=== PATIENT | male | born 1940 | race Caucasian/White ===

== ENCOUNTER 2016-07-08 20:35 | Inpatient (IN) | payer MEDICARE ==
[~2016-07-08] VITALS: Ht 198.1 cm; Wt 113.0 kg
--- NOTE | ~2016-07-08 | CON ---
[place], [place] REPORT OF CONSULTATION NAME: FRANDY GU [facility] #: [id number] UNIT #: [id number] ROOM: 531 DOCTOR: MAYRA FARRELL MD BIRTHDATE: [birth year] DOS: 07/12/2016 PULMONARY CONSULTATION EVALUATION AND MANAGEMENT The consultation requested by the hospitalist services. REASON FOR CONSULTATION: Assess the patient for ongoing acute respiratory complaints. HISTORY OF PRESENT ILLNESS: A 76-year-old white male who has been known to me previously. He has not been seen in my office for the past 4 years. The patient presented to the hospital for patient because of having symptoms of acute cold for the past couple of days. The symptoms are noted progressive worsening later on with significant chills for this patient. He was also noted with fever and headache. The cough for this patient was described, which was initially noted nonproductive, later on productive sputum expectoration. The patient denies symptoms of any chest pain. Shortness of breath for the patient was also noted with noted progressive worsening. Denies symptoms of hemoptysis. Denies any acute chest pain at this time. Currently, the patient has been admitted to the hospital and managed for the COPD exacerbation of the patient and other illnesses. REVIEW OF SYSTEMS: CONSTITUTIONAL SYMPTOMS: Fatigue and tiredness noted without any symptoms of fever or chills. EYES: Denies any burning, redness, or tenderness. EARS, NOSE, THROAT SYMPTOMS: No sore throat, hoarseness, otalgia, postnasal drainage. CARDIOVASCULAR SYSTEM: Denies anginal pain, edema or pain of the lower extremities. GASTROINTESTINAL SYMPTOMS: Denies dysphagia, nausea, vomiting, diarrhea, abdominal pain, hematemesis, melena, or hematochezia. GENITOURINARY SYMPTOMS: Denies dysuria, suprapubic pain, hematuria. MUSCULOSKELETAL SYMPTOMS: Denies acute joint pain, redness, or tenderness. SKIN: No lesions or rashes. CENTRAL NERVOUS SYSTEM: Denies dizziness, headache, diplopia or syncopal episodes. Remaining systems were reviewed with the patient, they were noted all negative. PAST MEDICAL HISTORY: For this patient was noted with history of: 1. Type 2 diabetes mellitus. 2. Essential hypertension. 3. Hyperlipidemia. 4. Past history of asbestos exposure. 5. History of bronchiectasis for this patient as well. 6. History of bronchial asthma for the patient uncomplicated moderate severity suspected. PAST SURGICAL HISTORY: [place], [place] REPORT OF CONSULTATION [id number] UN[facility] #: [id number] ROOM: 531 DOCTOR: MAYRA FARRELL MD BIRTHDATE: [birth year] 1. Bilateral orchiectomy. 2. Venous stripping of both the lower extremities. 3. History of appendectomy. 4. Bilateral total knee replacement. 5. Surgery of glaucoma. SOCIAL HISTORY: The patient is , has 2 children, lives at home. He has been noted past tobacco use since age of [age] years old up to 3 packs of cigarettes per day that was stopped by the patient about 45 years ago. Denies history of alcohol use or illicit drug use. FAMILY HISTORY: The patient's father at 85 years old, complication of congestive heart failure. Mother at age ____ years, complication of coronary artery disease. HOME MEDICATIONS: For the patient, which were listed for this patient were noted as use of amiodarone, aspirin, Zyrtec, lisinopril, metformin, Lopressor, multivitamin, simvastatin and trazodone. DRUG ALLERGIES: Noted allergy, 1. KEFLEX. 2. ADVAIR. PHYSICAL EXAMINATION: GENERAL: This is a 76-year-old white male who has been currently noted to be awake and alert, sitting on his bed without any acute distress. The patient's height was recorded by the nursing staff for the patient at the time of admission with height of 6 feet 6 inches, the weight of 249 pounds, BMI 28.7. VITAL SIGNS: For the patient shows a temperature noted as normal, respiratory rate recorded as 18-20, heart rate 62-59, blood pressure 140/64-152/56. A pulse oxygen saturation recorded for the patient 94% on room air. HEENT: Examination shows head was atraumatic. Eyes nonicterus. NECK: Supple. Oral mucosa was moist. CARDIOVASCULAR SYSTEM: S1, S2 is audible. LUNGS: The patient was noted with crackles of the lung were noted ____ for this patient generalized. Scattered wheezing. ABDOMEN: Soft, nontender. Bowel sounds present. EXTREMITIES: The patient shows no edema, clubbing or cyanosis. LABORATORY DATA: CBC of the patient that was done for the patient on admission 07/08/2016 showed WBC count 12.4, hemoglobin 13.0, hematocrit 41.1, platelet count of 210,000. CMP of the patient on 07/10/2016, WBC count 13.6, hemoglobin 11.6, hematocrit 36.5, platelet count was normal. CBC of this morning, WBC count 12.2, hemoglobin 11.8, hematocrit 37.2, platelet count of 224,000. CMP for the patient that was noted for the patient on 07/08/2016, glucose 182, BUN normal, creatinine was normal. Remaining CMP was normal on admission. Lactic acid as high as 2.8, lowest 2.0 for the patient on the , . Blood culture from the 20 of this month so far showed no bacterial growth. Culture of the sputum for the patient shows a normal hodan for the patient in isolation of the patient from 07/09/2016 was reported. Chest x-ray of the patient that was [place], [place] REPORT OF CONSULTATION NAME: FRANDY GU [facility] #: [id number] UNIT #: [id number] ROOM: 531 DOCTOR: TAMEKA STEVE [facility] BIRTHDATE: [birth year] done, 2 view of the patient on admission in the Emergency Room of the patient was assessed and shows some hyperinflation of the lungs without any gross area of pulmonary infiltration. The CT scan of the chest for the patient does not show any evidence of significant lymphadenopathy, mediastinal abnormal pulmonary nodules. Scattered patchy infiltration noted in the lower lung for this patient as well. There were no pleural effusions. Incidental finding for this patient was described as 2.7 cm nodule for the patient in the left lobe of the thyroid gland. IMPRESSION: 1. The patient who has been currently admitted to the hospital, treated for acute exacerbation of bronchial asthma, acute tracheobronchitis with a past history of bronchiectasis. Crackles of the patient noted in the lungs for the patient most likely suggestive of possibly to retain secretions of the major airways. 2. The patient with a past history of essential hypertension and other medical illnesses known previously. 3. Incidental finding of a 2.7 cm for the patient nodule for the patient hyperdense in the thyroid gland of unclear significance. Etiology needs to have further assessment done for that with the ultrasound, possible consideration of biopsy. 4. History of tobacco use of the patient remotely was also known. 5. Small patchy infiltration in lower lungs suggestive of acute bacterial pneumonia of the patient on aspiration, possible consideration of gram-positive community-acquired infection. PLAN OF TREATMENT: He has been getting intravenous Solu-Medrol for this patient as 40 mg b.i.d. for this patient that would be continued. He is also getting the Mucinex for the patient and the flutter valve. The sputum culture was noted negative for the patient, any abnormal bacterial growth. Continue current conservative treatment for this patient. The symptom remains persistent for the patient especially the cough, consider fiberoptic bronchoscopy. Continue other previous treatment, plan of management as in progress. Usual care. No change in the antibiotics will be necessary. Thanks for allowing me to participate in the care of this patient. MAYRA ENGLISH MD CM:CONSTR:REPORT OF CONSULTATION 1233 07/13/16 0639 interface
--- NOTE | ~2016-07-08 | PR ---
[place], [place] PROGRESS NOTE [id number] UN[facility] #: [id number] ROOM: 531 DOCTOR: TAMEKA STEVE MD,MAYRA BIRTHDATE: [birth year] DOS: 07/14/2016 SUBJECTIVE: The patient was seen and examined on 07/14/2016, comfortably resting with improvement continued in the respiratory symptoms of coughing, shortness of breath, and others. Denies symptoms of chest pain or any abdominal pain. OBJECTIVE: VITAL SIGNS: For the patient, which has been recorded, showed the temperature of the patient noted as normal. The respiratory rate of the patient recorded as 20, heart rate of 56, blood pressure 156/77. The pulse oxygen saturation of the patient noted on room air 95% saturation. HEENT: No acute change. NECK: Supple. CARDIOVASCULAR: S1, S2 audible. LUNGS: There were no wheezing or crackles at this time noted. ABDOMEN: Soft, nontender. LABORATORY DATA: PA and lateral chest x-ray of the patient that was done this morning for the patient was reviewed, shows increased interstitial markings in the patient noted as previously. There were no acute pulmonary infiltration noted. IMPRESSION: Acute tracheobronchitis with history of bronchiectasis, acute exacerbation of bronchial asthma. PLAN OF TREATMENT: No changes from the pulmonary standpoint, the patient could be considered for home discharge on current medical management. Other supportive therapy, plan of management, antibiotic for the patient, and tapering dose of prednisone upon discharge was advised. MAYRA ENGLISH MD CM:PNTRANS [id number] MAYRA STEVE MD 07/15/16 0602 interface
--- NOTE | ~2016-07-08 | EKG ---
[place], [place] ELECTROCARDIOGRAM REPORT NAME: FRANDY GU UNIT #: [id number] ROOM: 531 DOCTOR: LISSY KIRBY MD BIRTHDATE: [birth year] DOS: 07/08/2016 TIME: 210 Sinus rhythm, normal axis, normal intervals, nonspecific ST-T changes. LISSY KIRBY MD CM:EKGRPT:ELECTROCARDIOGRAM REPORT 1126 1150 LISSY KIRBY MD
--- NOTE | ~2016-07-08 | PR ---
[place], [place] PROGRESS NOTE NAME: FRANDY GU UNIT #: [id number] ROOM: 531 DOCTOR: MAYRA FARRELL MD BIRTHDATE: [birth year] DOS: 07/13/2016 PULMONARY PROGRESS NOTE SUBJECTIVE: The patient reported reduction of the symptoms of coughing and shortness of breath as well as wheezing. Denies symptoms of chest pain or abdominal pain. OBJECTIVE: VITAL SIGNS: Normal temperature, respiratory rate 20, heart rate 64, blood pressure 177/86-156/74. Pulse oxygen saturation on room air 96% saturation. HEENT: No new change. NECK: Supple. CARDIOVASCULAR: S1, S2 audible. LUNGS: Noted with reduction of crackles in the lungs bilaterally. Still basilar crackles noted, which is inspiratory. The wheezing was present mild to moderately. ABDOMEN: Soft, nontender. LABORATORY DATA: CBC: WBC count was normal, hemoglobin 11.3, hematocrit 35.3, platelet count was normal. The BMP of patient this morning, BUN 26, creatinine normal, glucose 153. IMPRESSION: 1. The patient who has been currently treated for the management of acute exacerbation of bronchial asthma and acute bacterial bronchitis, which has been improving progressively. The secretion clearance of the patient noted reduction in crackle for patient endobronchial tree. 2. History of bronchiectasis. 3. Thyroid nodule as well. 4. Possibility of acute pneumonia for this patient from aspiration. PLAN OF TREATMENT: Continuation of the current plan of management, bronchodilators, oxygen supplementation, other treatment plan and management. I ordered a chest x-ray of the patient, PA and lateral views tomorrow morning to assess the progression of the pneumonia assessment. Supportive care. [place], [place] PROGRESS NOTE NAME: FRANDY GU UNIT #: [id number] ROOM: 531 DOCTOR: MAYRA FARRELL MD BIRTHDATE: [birth year] MAYRA ENGLISH MD CM:PNTRANS 1124 7 MAYRA STEVE MD 07/14/16247 interface
[~2016-07-08 20:35] MED LIST: 'zithromax250 MG PO; ALBUTEROL0.09 MG/A2 INH; ALBUTEROL2.5 MG/0.5 INH; ALPHAGAN-P 5 ML5 ML OPH; ASPIRIN EC325 MG PO; ASPIRIN81 M1 PO; ATIVAN0.5 MG PO; CORDARONE200 MG PO; Coumadin3 MG PO; DAILY VITAMINS1 TAB PO; DELTASONE5 MG PO; DESYREL50 MG PO; DORZOLAMIDE OPH; DOXYCYCLINE100 MG PO; ELIQUIS5 M1 PO; FORADIL AEROLIZER; GLIPIZIDE5 MG PO; GLUCOPHAGE1000 MG PO; GLUCOPHAGE500 M1 PO; GLUCOPHAGE500 MG PO; HYDROCODONE BIT1 T11 PO; LOMOTIL 0.025 M1 TA1 PO; LOPRESSOR50 MG PO; MOTRIN800 MG PO; MUCINEX600 MG PO; NAPROSYN500 MG PO; POTASSIUM GLUC550 M1 PO; PREDNISONE10 MG PO; PRILOSEC20 M1 PO; PRINIVIL5 MG; PRINZIDE 12.5 M1 TAB PO; PROAMATINE10 MG PO; PROCARDIA XL30 MG PO; TOPROL-XL50 MG PO; TRAMADOL HCL50 MG PO; TRAVATAN 0.0042.5 M1 INTRAOC; VIBRAMYCIN100 MG PO; XALATAN 0.005%2.5 ML OU; XALATAN 2.5 ML2.5 M1 OP; ZESTRIL2.5 MG PO; ZOCOR20 MG PO; ZOVIRAX400 MG PO; ZYRTEC10 MG PO; [UNRECOGNIZED DRUG - OTHER] IV
[2016-07-08 20:43] VITALS: BP 200/80
[2016-07-08 21:01] VITALS: BP 135/84
[2016-07-08 21:14] LABS: BASO % 0.2 % (0.0-1.0); EOS # 0.5 10*3/uL (0.0-0.4); EOS % 3.6 % (1.0-4.0); HEMATOCRIT 41.1 % (42.0-52.0); LYMPH # 0.9 10*3/uL (1.3-4.4); LYMPH % 7.2 % (27.0-41.0); MEAN CELL VOLUME 92.8 fl (80.0-94.0); MEAN CORPUSCULAR HGB 29.3 pg (27.0-31.0); MEAN CORPUSCULAR HGB CONC 31.6 g/dl (33.0-37.0); MEAN PLATELET VOLUME 10.5 fl (9.6-12.3); MONO # 1.1 10*3/uL (0.1-1.0); MONO % 8.8 % (3.0-9.0); PLATELET COUNT AUTOMATED 210 10*3/uL (130-400); RED BLOOD COUNT 4.43 10*6/uL (4.50-5.90); RED CELL DISTRI WIDTH 13.3 % (0-14.5); WHITE BLOOD COUNT 12.4 10*3/uL (4.8-10.8)
[2016-07-08 21:32] VITALS: BP 160/69
[2016-07-08 21:35] LABS: ALBUMIN 3.8 gm/dl (3.1-4.5); ALKALINE PHOSPHATASE 75 U/L (45-117); BILIRUBIN, TOTAL 0.3 mg/dl (0.2-1.0); BUN 21 mg/dl (7-24); CARBON DIOXIDE 24 mmol/L (21-32); CHLORIDE 107 mmol/L (98-107); EST GLOM FILT AFRICAN AMERICAN > 60 ml/min; GLUCOSE 182 mg/dL (65-99); MAGNESIUM 1.6 mg/dL (1.5-2.1); POTASSIUM 4.6 mmol/L (3.5-5.1); SGOT/AST 19 IU/L (3-35); SGPT/ALT 29 U/L (12-78); SODIUM 140 mmol/L (136-145); TOTAL PROTEIN 7.9 gm/dL (6.4-8.2)
[2016-07-08 21:37] LABS: TROPONIN I < 0.015 ng/ml (<0.045)
[2016-07-08 22:05] VITALS: BP 160/69
[2016-07-08 22:30] VITALS: BP 137/52
[2016-07-08 22:36] VITALS: BP 137/52
[2016-07-08 23:11] LABS: LA>2 REFLEX 2 HR DRAW NOW
[2016-07-08] MEDS ORDERED: ASPIRIN NON IR325 MG PO (23:15)
[2016-07-08] MEDS ORDERED: AMIODARONE HCL100 M1 PO (23:17)
[2016-07-09] VITALS: BP 124/68
[2016-07-09 00:07] LABS: LA>2 RFLX FOLLOW UP AT 2 HRS 2.1 mmol/L (0.4-2.0)
[2016-07-09 01:59] LABS: LA>2 REFLEX 4 HR DRAW NOW
[2016-07-09 04:00] VITALS: BP 125/61
[2016-07-09 08:00] VITALS: BP 130/71
[2016-07-09 12:00] VITALS: BP 123/51
[2016-07-09 16:00] VITALS: BP 109/51
[2016-07-09 20:00] VITALS: BP 119/58
[2016-07-10] VITALS: BP 125/52
[2016-07-10 08:00] VITALS: BP 140/64; BP 160/74
[2016-07-10 08:49] LABS: HEMATOCRIT 36.5 % (42.0-52.0); HEMOGLOBIN 11.6 g/dl (14.0-18.0); MEAN CELL VOLUME 91.9 fl (80.0-94.0); MEAN CORPUSCULAR HGB 29.2 pg (27.0-31.0); MEAN CORPUSCULAR HGB CONC 31.8 g/dl (33.0-37.0); MEAN PLATELET VOLUME 10.3 fl (9.6-12.3); PLATELET COUNT AUTOMATED 208 10*3/uL (130-400); RED BLOOD COUNT 3.97 10*6/uL (4.50-5.90); RED CELL DISTRI WIDTH 13.7 % (0-14.5); WHITE BLOOD COUNT 13.6 10*3/uL (4.8-10.8)
[2016-07-10 09:04] LABS: ALBUMIN 3.2 gm/dl (3.1-4.5); ALKALINE PHOSPHATASE 54 U/L (45-117); BILIRUBIN, TOTAL 0.3 mg/dl (0.2-1.0); BUN 20 mg/dl (7-24); CARBON DIOXIDE 24 mmol/L (21-32); CHLORIDE 110 mmol/L (98-107); EST GLOM FILT AFRICAN AMERICAN > 60 ml/min; GLUCOSE 169 mg/dL (65-99); POTASSIUM 4.6 mmol/L (3.5-5.1); SGOT/AST 11 IU/L (3-35); SGPT/ALT 21 U/L (12-78); SODIUM 142 mmol/L (136-145); TOTAL PROTEIN 7.1 gm/dL (6.4-8.2)
[2016-07-10 09:10] LABS: MONOCYTE # 0.5 10*3/uL (0.1-1.0); NEUTROPHIL # 12.1 10*3/uL (2.3-7.9); NEUTROPHILS 89 % (47-73); PLATELET SUFFICIENCY NORMAL (NORMAL); TOTAL CELLS COUNTED 100 #CELLS
[2016-07-10 12:00] VITALS: BP 107/66
[2016-07-10 16:00] VITALS: BP 157/90
[2016-07-10 20:00] VITALS: BP 162/63
[2016-07-11] VITALS: BP 145/59
[2016-07-11 07:41] LABS: HEMATOCRIT 37.2 % (42.0-52.0); HEMOGLOBIN 11.8 g/dl (14.0-18.0); MEAN CELL VOLUME 92.8 fl (80.0-94.0); MEAN CORPUSCULAR HGB 29.4 pg (27.0-31.0); MEAN CORPUSCULAR HGB CONC 31.7 g/dl (33.0-37.0); MEAN PLATELET VOLUME 11.2 fl (9.6-12.3); PLATELET COUNT AUTOMATED 224 10*3/uL (130-400); RED BLOOD COUNT 4.01 10*6/uL (4.50-5.90); RED CELL DISTRI WIDTH 13.7 % (0-14.5); WHITE BLOOD COUNT 12.2 10*3/uL (4.8-10.8)
[2016-07-11 08:00] VITALS: BP 152/56
[2016-07-11 08:10] LABS: LYMPHOCYTE # 0.2 10*3/uL (1.3-4.4); MONOCYTE # 0.6 10*3/uL (0.1-1.0); NEUTROPHIL # 11.3 10*3/uL (2.3-7.9); NEUTROPHILS 93 % (47-73); PLATELET SUFFICIENCY NORMAL (NORMAL); TOTAL CELLS COUNTED 100 #CELLS
[2016-07-11 16:30] VITALS: BP 129/51
[2016-07-11 20:00] VITALS: BP 139/61
[2016-07-12 08:00] VITALS: BP 168/82
[2016-07-12 12:00] VITALS: BP 141/53
[2016-07-12 16:00] VITALS: BP 133/54
[2016-07-12 20:00] VITALS: BP 151/58
[2016-07-13] VITALS: BP 156/74
[2016-07-13 06:21] LABS: BASO % 0.1 % (0.0-1.0); HEMATOCRIT 35.3 % (42.0-52.0); HEMOGLOBIN 11.3 g/dl (14.0-18.0); IG # 0.2 10*3/uL (0.0-0.1); LYMPH # 0.9 10*3/uL (1.3-4.4); LYMPH % 10.6 % (27.0-41.0); MEAN CELL VOLUME 91.7 fl (80.0-94.0); MEAN CORPUSCULAR HGB 29.4 pg (27.0-31.0); MEAN PLATELET VOLUME 11.1 fl (9.6-12.3); MONO # 0.6 10*3/uL (0.1-1.0); MONO % 7.5 % (3.0-9.0); NEUT # 6.7 10*3/uL (2.3-7.9); NEUT % 79.5 % (47.0-73.0); NUCLEATED RED BLOOD CELL 0.2 % (0.0-0.0); PLATELET COUNT AUTOMATED 240 10*3/uL (130-400); RED BLOOD COUNT 3.85 10*6/uL (4.50-5.90); RED CELL DISTRI WIDTH 14.1 % (0-14.5); WHITE BLOOD COUNT 8.4 10*3/uL (4.8-10.8)
[2016-07-13 06:48] LABS: BUN 26 mg/dl (7-24); CARBON DIOXIDE 26 mmol/L (21-32); CHLORIDE 105 mmol/L (98-107); EST GLOM FILT AFRICAN AMERICAN > 60 ml/min; GLUCOSE 153 mg/dL (65-99); POTASSIUM 4.6 mmol/L (3.5-5.1); SODIUM 141 mmol/L (136-145)
[2016-07-13 08:00] VITALS: BP 177/86
[2016-07-13 12:00] VITALS: BP 172/80
[2016-07-13 16:00] VITALS: BP 151/68
[2016-07-13 20:00] VITALS: BP 148/59
[2016-07-14] VITALS: BP 136/61
[2016-07-14 08:00] VITALS: BP 154/77
[2016-07-14 12:00] VITALS: BP 187/78
[2016-07-14 13:17] VITALS: BP 141/66
[2016-07-14] MEDS ORDERED: LISINOPRIL5 MG PO (14:59)
[2016-07-14] MEDS ORDERED: VENTOLIN H0.09 MG/AC INH (14:59)
[2016-07-14] MEDS ORDERED: PREDNISONE10 MG PO (14:59)
== END 2016-07-14 15:31 | disposition home or self-care (01) | DRG 871 ==
LOC: ED 20:35 → EDHOLD 21:46 → 5E 21:46
PROVIDERS: Internal Medicine; Internal Medicine Hospice and Palliative Medicine; Nurse Practitioner Family
DX: A41.9 Sepsis, unspecified organism (principal); J18.9 Pneumonia, unspecified organism; E11.65 Type 2 diabetes mellitus with hyperglycemia; J44.0 Chronic obstructive pulmonary disease with (acute) lower respiratory infection; J45.901 Unspecified asthma with (acute) exacerbation; D64.9 Anemia, unspecified; J44.1 Chronic obstructive pulmonary disease with (acute) exacerbation; R65.20 Severe sepsis without septic shock; I16.0 Hypertensive urgency; E04.1 Nontoxic single thyroid nodule; I10 Essential (primary) hypertension; E78.2 Mixed hyperlipidemia; J20.9 Acute bronchitis, unspecified; Z96.653 Presence of artificial knee joint, bilateral; Z88.1 Allergy status to other antibiotic agents; Z88.8 Allergy status to other drugs, medicaments and biological substances; Z90.79 Acquired absence of other genital organ(s); Z90.49 Acquired absence of other specified parts of digestive tract; Z82.49 Family history of ischemic heart disease and other diseases of the circulatory system; Z79.82 Long term (current) use of aspirin; Z79.899 Other long term (current) drug therapy; Z87.891 Personal history of nicotine dependence

== ENCOUNTER → 2016-07-24 | Outpatient (CLI) | payer MEDICARE ==
[~2016-07-24] MED LIST changes: +AMIODARONE HCL100 M1 PO; +ASPIRIN NON IR325 MG PO; +LISINOPRIL5 MG PO; +VENTOLIN H0.09 MG/AC INH
[2016-07-24 15:34] LABS: FREE T4 1.21 ng/dl (0.76-1.46); THYROID STIM HORMONE (HS) 0.203 uIU/ml (0.358-4.75)
== END | disposition home or self-care (01) ==
LOC: LAB 14:23 → US 15:00
PROVIDERS: Internal Medicine
DX: E04.2 Nontoxic multinodular goiter (principal)

== ENCOUNTER → 2016-08-02 | Outpatient (CLI) | payer MEDICARE ==
[2016-08-02 11:28] LABS: PROTHROMBIN TIME 10.7 SECONDS (9.0-12.4)
== END | disposition home or self-care (01) ==
LOC: LAB 10:46
PROVIDERS: Internal Medicine
DX: I48.91 Unspecified atrial fibrillation (principal); E04.1 Nontoxic single thyroid nodule

== ENCOUNTER → 2016-08-03 | Outpatient (CLI) | payer MEDICARE ==
[~2016-08-03] MED LIST changes: +DUONEB 3 MG/3 ML3 M1 INH
== END | disposition home or self-care (01) ==
LOC: SDC 11:00 → EDSTATUS 11:00
PROVIDERS: Internal Medicine
DX: E04.2 Nontoxic multinodular goiter (principal); E13.9 Other specified diabetes mellitus without complications; J44.9 Chronic obstructive pulmonary disease, unspecified; I10 Essential (primary) hypertension; I48.2 Chronic atrial fibrillation; E78.2 Mixed hyperlipidemia

== ENCOUNTER 2016-08-09 17:51 | Emergency (ER) | payer MEDICARE ==
[~2016-08-09] VITALS: Ht 198.1 cm; Wt 108.9 kg
[~2016-08-09 17:51] MED LIST changes: -DUONEB 3 MG/3 ML3 M1 INH
[2016-08-09 17:56] VITALS: BP 160/81
[2016-08-09 18:42] LABS: BASO % 0.7 % (0.0-1.0); EOS # 0.1 10*3/uL (0.0-0.4); HEMATOCRIT 37.1 % (42.0-52.0); HEMOGLOBIN 11.9 g/dl (14.0-18.0); LYMPH # 0.9 10*3/uL (1.3-4.4); LYMPH % 20.3 % (27.0-41.0); MEAN CELL VOLUME 90.5 fl (80.0-94.0); MEAN CORPUSCULAR HGB CONC 32.1 g/dl (33.0-37.0); MEAN PLATELET VOLUME 9.6 fl (9.6-12.3); MONO # 0.7 10*3/uL (0.1-1.0); MONO % 16.8 % (3.0-9.0); NEUT # 2.5 10*3/uL (2.3-7.9); NEUT % 58.5 % (47.0-73.0); PLATELET COUNT AUTOMATED 304 10*3/uL (130-400); RED CELL DISTRI WIDTH 13.2 % (0-14.5); WHITE BLOOD COUNT 4.3 10*3/uL (4.8-10.8)
[2016-08-09 18:59] LABS: ALBUMIN 3.4 gm/dl (3.1-4.5); ALKALINE PHOSPHATASE 65 U/L (45-117); BILIRUBIN, TOTAL 0.4 mg/dl (0.2-1.0); BUN 27 mg/dl (7-24); CARBON DIOXIDE 23 mmol/L (21-32); CHLORIDE 101 mmol/L (98-107); EST GLOM FILT AFRICAN AMERICAN 51 ml/min; GLUCOSE 100 mg/dL (65-99); SGOT/AST 26 IU/L (3-35); SGPT/ALT 33 U/L (12-78); SODIUM 138 mmol/L (136-145); TOTAL PROTEIN 7.9 gm/dL (6.4-8.2)
[2016-08-09 19:04] LABS: TROPONIN I < 0.015 ng/ml (<0.045)
[2016-08-09] MEDS ORDERED: LOMOTIL 0.025 M1 TA1 PO (21:27)
[2016-08-09] MEDS ORDERED: DUONEB 3 MG/3 ML3 M1 INH (21:27)
== END 2016-08-09 22:11 | disposition home or self-care (01) ==
LOC: ED 17:51
PROVIDERS: Registered Nurse
DX: J44.1 Chronic obstructive pulmonary disease with (acute) exacerbation (principal); K52.9 Noninfective gastroenteritis and colitis, unspecified; I10 Essential (primary) hypertension; E11.9 Type 2 diabetes mellitus without complications; E78.5 Hyperlipidemia, unspecified; Z88.1 Allergy status to other antibiotic agents; Z88.8 Allergy status to other drugs, medicaments and biological substances; Z79.82 Long term (current) use of aspirin; Z90.49 Acquired absence of other specified parts of digestive tract; Z79.899 Other long term (current) drug therapy; Z87.891 Personal history of nicotine dependence

== ENCOUNTER → 2016-08-17 | Outpatient (CLI) | payer MEDICARE ==
[~2016-08-17] MED LIST changes: +DUONEB 3 MG/3 ML3 M1 INH
[2016-08-17 10:52] LABS: BASO % 0.5 % (0.0-1.0); EOS # 0.2 10*3/uL (0.0-0.4); EOS % 3.8 % (1.0-4.0); HEMATOCRIT 34.4 % (42.0-52.0); HEMOGLOBIN 11.1 g/dl (14.0-18.0); LYMPH # 0.9 10*3/uL (1.3-4.4); LYMPH % 15.1 % (27.0-41.0); MEAN CELL VOLUME 89.8 fl (80.0-94.0); MEAN CORPUSCULAR HGB CONC 32.3 g/dl (33.0-37.0); MEAN PLATELET VOLUME 9.3 fl (9.6-12.3); MONO # 0.9 10*3/uL (0.1-1.0); MONO % 14.8 % (3.0-9.0); NEUT % 65.1 % (47.0-73.0); PLATELET COUNT AUTOMATED 335 10*3/uL (130-400); RED BLOOD COUNT 3.83 10*6/uL (4.50-5.90); RED CELL DISTRI WIDTH 13.3 % (0-14.5); WHITE BLOOD COUNT 6.1 10*3/uL (4.8-10.8)
== END | disposition home or self-care (01) ==
LOC: LAB 10:26
PROVIDERS: Internal Medicine
DX: J15.211 Pneumonia due to Methicillin susceptible Staphylococcus aureus (principal); A09 Infectious gastroenteritis and colitis, unspecified

== ENCOUNTER → 2016-08-18 | Outpatient (CLI) | payer MEDICARE | END | disposition home or self-care (01) | LOC: LAB 12:13 | DX: A09 Infectious gastroenteritis and colitis, unspecified (principal); J15.211 Pneumonia due to Methicillin susceptible Staphylococcus aureus ==

== ENCOUNTER → 2016-08-29 | Outpatient (CLI) | payer MEDICARE | END | disposition home or self-care (01) | LOC: RAD 10:34 | DX: J84.9 Interstitial pulmonary disease, unspecified (principal); J44.1 Chronic obstructive pulmonary disease with (acute) exacerbation; E11.9 Type 2 diabetes mellitus without complications; I10 Essential (primary) hypertension; Z87.01 Personal history of pneumonia (recurrent); Z87.891 Personal history of nicotine dependence ==

== ENCOUNTER 2017-01-27 14:40 | Inpatient (IN) | payer MEDICARE ==
[~2017-01-27] VITALS: Ht 198.1 cm; Wt 107.2 kg
--- NOTE | ~2017-01-27 | EKG ---
[place], [place] ELECTROCARDIOGRAM REPORT NAME: FRANDY GU UNIT #: [id number] ROOM: 502 DOCTOR: TAMEKA STEVE MD,MAYRA BIRTHDATE: [birth year] DOS: 01/27/2017 ELECTROCARDIOGRAM REPORT TIME: 5:57 p.m. Normal sinus rhythm was noted with 74 beats per minute, otherwise unremarkable. There were no abnormalities noted in an electrocardiogram MAYRA ENGLISH MD CM:EKGRPT:ELECTROCARDIOGRAM REPORT 0947 MAYRA STEVE MD
--- NOTE | ~2017-01-27 | EKG ---
[place], [place] ELECTROCARDIOGRAM REPORT NAME: FRANDY GU UNIT #: [id number] ROOM: 502 DOCTOR: TAMEKA STEVE MD,MAYRA BIRTHDATE: [birth year] DOS: 01/27/2017 ELECTROCARDIOGRAM REPORT TIME: At 2:48 p.m. Normal sinus rhythm were noted. Heart rate 72 beats per minute without any changes of ischemia or arrhythmias. MAYRA ENGLISH MD CM:EKGRPT:ELECTROCARDIOGRAM REPORT 0933 1002 MAYRA STEVE MD
--- NOTE | ~2017-01-27 | EKG ---
[place], [place] ELECTROCARDIOGRAM REPORT NAME: FRANDY GU UNIT #: [id number] ROOM: 502 DOCTOR: TAMEKA STEVE MD,MAYRA BIRTHDATE: [birth year] DOS: 01/29/2017 ELECTROCARDIOGRAM The electrocardiogram was done on 01/27/2017 at 8:30 p.m. Normal sinus rhythm noted. Heart rate 75 beats per minute. There were no ischemic changes or other abnormalities. MAYRA ENGLISH MD CM:EKGRPT:ELECTROCARDIOGRAM REPORT 0932 1002 MAYRA STEVE MD
[~2017-01-27 14:40] MED LIST changes: -DORZOLAMIDE OPH; +TRUSOPT OCUMETE10 M1 OPH; +XALATAN 0.005%2.5 ML OPH; -XALATAN 2.5 ML2.5 M1 OP
[2017-01-27 14:46] VITALS: BP 136/68
[2017-01-27 15:07] LABS: BASO % 0.3 % (0.0-1.0); EOS # 0.1 10*3/uL (0.0-0.4); EOS % 2.2 % (1.0-4.0); LYMPH # 0.9 10*3/uL (1.3-4.4); LYMPH % 13.8 % (27.0-41.0); MEAN CELL VOLUME 87.8 fl (80.0-94.0); MEAN CORPUSCULAR HGB 29.3 pg (27.0-31.0); MEAN CORPUSCULAR HGB CONC 33.3 g/dl (33.0-37.0); MEAN PLATELET VOLUME 10.1 fl (9.6-12.3); MONO # 0.9 10*3/uL (0.1-1.0); MONO % 13.8 % (3.0-9.0); NEUT # 4.3 10*3/uL (2.3-7.9); NEUT % 69.4 % (47.0-73.0); PLATELET COUNT AUTOMATED 219 10*3/uL (130-400); RED BLOOD COUNT 4.44 10*6/uL (4.50-5.90); RED CELL DISTRI WIDTH 13.9 % (0-14.5); WHITE BLOOD COUNT 6.2 10*3/uL (4.8-10.8)
[2017-01-27 15:19] LABS: ACT PARTIAL THROMBO TIME 23.4 SECONDS (20.8-31.5)
[2017-01-27 15:24] LABS: ALBUMIN 3.3 gm/dl (3.1-4.5); ALKALINE PHOSPHATASE 68 U/L (45-117); BUN 28 mg/dl (7-24); CHLORIDE 101 mmol/L (98-107); CREATININE 1.31 mg/dL (0.70-1.30); POTASSIUM 3.8 mmol/L (3.5-5.1); SGOT/AST 25 IU/L (3-35); SGPT/ALT 33 U/L (12-78); SODIUM 134 mmol/L (136-145); TOTAL PROTEIN 8.1 gm/dL (6.4-8.2)
[2017-01-27 15:25] LABS: TROPONIN I 0.026 ng/ml (<0.045)
[2017-01-27 15:42] VITALS: BP 136/70
[2017-01-27 16:00] VITALS: BP 126/59
--- NOTE | 2017-01-27 16:45 | NUR ---
A 77, admitted to , under the services of FLOYD Henderson DO with a diagnosis of ELEVATED BP READING, ATYPICAL PNEUMONIA, ACUTE RENAL FAILURE INSUFFICIENCY, FAILURE OF OUTPATIENT TREATMENT. Chief complaint is SOB. Patient arrived via bed from ER. Monitor applied. Initial assessment completed. Vital signs taken and recorded. FLOYD HENDERSON DO notified of admission to the unit. Orders received. See assessment for past medical history, medications and allergies. Patient and/or family oriented to unit. [facility] visitation policy reviewed. Clothing/patient valuable form completed. SPARKLE BAIRES
--- NOTE | 2017-01-27 16:54 | NUR ---
PT TAKEN TO 502-2. STABLE FOR TRANSPORT. SPARKLE MOORE IN ROOM TAKING OVER CARE.
[2017-01-27] MEDS ORDERED: ASPIRIN325 M2 PO (17:20)
[2017-01-27] MEDS ORDERED: SINGULAIR10 M1 PO (17:21)
[2017-01-27] MEDS ORDERED: TEARS AGAIN OPH (17:22)
[2017-01-27] MEDS ORDERED: PRAVACHOL20 MG PO (17:23)
--- NOTE | 2017-01-27 17:24 | NUR ---
MED REC UPDATED BY PATIENT PROVIDED LIST
--- NOTE | 2017-01-27 19:30 | NUR ---
PATIENT RESTING COMFORTABLY IN BED. PATIENT DENIES ANY PAIN, DISCOMFORT, OR SOB UPON ASSESSMENT. PATIENT HAS INS AND EXP WHEEZES. PATIENT IS A&OX3 AND AMBULATORY. PATIENT HAS NO FURTHER REQUESTS AT THIS TIME. CALL LIGHT IS WITHIN REACH. SEE ASSESSMENT.
[2017-01-27 20:00] VITALS: BP 119/43
[2017-01-28] VITALS: BP 119/48
[2017-01-28 06:18] LABS: HEMATOCRIT 34.4 % (42.0-52.0); HEMOGLOBIN 11.2 g/dl (14.0-18.0); LYMPH # 0.4 10*3/uL (1.3-4.4); LYMPH % 11.7 % (27.0-41.0); MEAN CELL VOLUME 88.7 fl (80.0-94.0); MEAN CORPUSCULAR HGB 28.9 pg (27.0-31.0); MEAN CORPUSCULAR HGB CONC 32.6 g/dl (33.0-37.0); MEAN PLATELET VOLUME 10.6 fl (9.6-12.3); MONO # 0.1 10*3/uL (0.1-1.0); MONO % 2.6 % (3.0-9.0); NEUT % 85.1 % (47.0-73.0); PLATELET COUNT AUTOMATED 201 10*3/uL (130-400); RED BLOOD COUNT 3.88 10*6/uL (4.50-5.90); RED CELL DISTRI WIDTH 13.9 % (0-14.5); WHITE BLOOD COUNT 3.5 10*3/uL (4.8-10.8)
--- NOTE | 2017-01-28 06:32 | NUR ---
PATIENT WAS ABLE TO SLEEP THROUGHOUT THE NIGHT WITH MINIMAL INTERRUPTION. PATIENT REPORTS FEELING RESTED AND HAS MORE ENERGY THIS MORNING. PATIENT IS A&OX3 AND AMBULATORY WITHOUT ASSIST. PATIENT DENIES ANY SOB ON ROOM AIR. PATIENT HAS A NON-PROD COUGH AND DENIES ANY PAIN OR DISCOMFORT THROUGHOUT SHIFT. PATIENT IS MONITORED. HOB ELEVATED. CALL LIGHT WITHIN REACH. SEE ASSESSMENT.
[2017-01-28 06:43] LABS: CREATININE 1.44 mg/dL (0.70-1.30); PHOSPHOROUS 3.3 mg/dL (2.5-4.9); POTASSIUM 4.6 mmol/L (3.5-5.1)
[2017-01-28 07:22] LABS: VITAMIN D, 25-HYDROXY 27.1 ng/mL (30-100)
--- NOTE | 2017-01-28 07:45 | NUR ---
Shift chart check completed.
[2017-01-28 08:00] VITALS: BP 142/62
[2017-01-28 12:00] VITALS: BP 134/60
[2017-01-28 16:00] VITALS: BP 149/65
[2017-01-28 20:00] VITALS: BP 132/52
[2017-01-29] VITALS: BP 144/55
[2017-01-29 06:06] LABS: BASO % 0.1 % (0.0-1.0); EOS % 0.1 % (1.0-4.0); HEMATOCRIT 34.2 % (42.0-52.0); HEMOGLOBIN 11.2 g/dl (14.0-18.0); LYMPH # 0.7 10*3/uL (1.3-4.4); LYMPH % 5.8 % (27.0-41.0); MEAN CELL VOLUME 88.8 fl (80.0-94.0); MEAN CORPUSCULAR HGB 29.1 pg (27.0-31.0); MEAN CORPUSCULAR HGB CONC 32.7 g/dl (33.0-37.0); MEAN PLATELET VOLUME 10.5 fl (9.6-12.3); MONO # 0.4 10*3/uL (0.1-1.0); MONO % 3.8 % (3.0-9.0); NEUT # 10.1 10*3/uL (2.3-7.9); NEUT % 89.6 % (47.0-73.0); PLATELET COUNT AUTOMATED 226 10*3/uL (130-400); RED BLOOD COUNT 3.85 10*6/uL (4.50-5.90); RED CELL DISTRI WIDTH 14.1 % (0-14.5); WHITE BLOOD COUNT 11.3 10*3/uL (4.8-10.8)
[2017-01-29 06:27] LABS: CREATININE 1.43 mg/dL (0.70-1.30); POTASSIUM 4.5 mmol/L (3.5-5.1)
[2017-01-29 08:00] VITALS: BP 132/56
--- NOTE | 2017-01-29 09:16 | NUR ---
Laboratory Secretary in to talk to patient. Patient states lives at home with . There are few steps in the home. Physician: lilliam nugent Pharmacy: [facility] services: none Patient's level of ADLs: INDEPENDENT Patient has working utilities: all working DME: nebulizer Follow-up physician's appointment after d/c: will be made by hospitalist nurse director upon dischrge Does patient want to access PORTAL?: no Discharge plan discussed with patient, patient lives at home with , states he is independent in adls and ambualtion, drives, patient states he will be going back home and denies any home needs. JUSTIN PARK
[2017-01-29 12:00] VITALS: BP 122/60
[2017-01-29 16:00] VITALS: BP 130/55
[2017-01-29 20:00] VITALS: BP 139/65
--- NOTE | 2017-01-29 21:00 | NUR ---
RESTING IN BED WATCHING TV. NO ACUTE DISTRESS NOTED. RESPIRATIONS EASY. LUNGS DIMINISHED WITH WHEEZES AND RHONCHI. PULSE OX 96% RA. PRODUCTIVE COUGH PER PT. OFFERED AND EDUCATED REGARDING TEDS, DECLINED. CALL LIGHT WITHIN REACH. NO VOICED COMPLAINTS
[2017-01-30] VITALS: BP 125/57
--- NOTE | 2017-01-30 00:30 | NUR ---
SLEEPING. NO DISTRESS NOTED. RESPIRATIONS EASY. VSS. CALL LIGHT WITHIN REACH
--- NOTE | 2017-01-30 06:00 | NUR ---
SLEPT THROUGHOUT NIGHT WITH NO DISTRESS NOTED. RESPIRATIONS EASY. CALL LIGHT WITHIN REACH. NO VOICED COMPLAINTS THIS SHIFT
[2017-01-30 07:02] LABS: BASO % 0.1 % (0.0-1.0); HEMOGLOBIN 11.1 g/dl (14.0-18.0); LYMPH # 0.6 10*3/uL (1.3-4.4); LYMPH % 5.9 % (27.0-41.0); MEAN CELL VOLUME 87.4 fl (80.0-94.0); MEAN CORPUSCULAR HGB 28.5 pg (27.0-31.0); MEAN CORPUSCULAR HGB CONC 32.6 g/dl (33.0-37.0); MEAN PLATELET VOLUME 10.7 fl (9.6-12.3); MONO # 0.3 10*3/uL (0.1-1.0); MONO % 2.8 % (3.0-9.0); NEUT # 9.4 10*3/uL (2.3-7.9); NEUT % 89.9 % (47.0-73.0); PLATELET COUNT AUTOMATED 255 10*3/uL (130-400); RED BLOOD COUNT 3.89 10*6/uL (4.50-5.90); RED CELL DISTRI WIDTH 14.4 % (0-14.5); WHITE BLOOD COUNT 10.4 10*3/uL (4.8-10.8)
[2017-01-30 07:33] LABS: BUN 33 mg/dl (7-24); CHLORIDE 104 mmol/L (98-107); POTASSIUM 4.9 mmol/L (3.5-5.1); SODIUM 136 mmol/L (136-145)
[2017-01-30 07:36] LABS: CREATININE 1.27 mg/dL (0.70-1.30); PHOSPHOROUS 3.2 mg/dL (2.5-4.9)
[2017-01-30 08:00] VITALS: BP 134/59
--- NOTE | 2017-01-30 09:00 | NUR ---
case management visits with patient, patient denies any home needs
--- NOTE | 2017-01-30 09:26 | NUR ---
PT RESTING IN BED,RESPS EASY ON RA, SPO2 93%. NO DISTRESS NOTED. CALL LIGHT IN REACH.
--- NOTE | 2017-01-30 11:44 | NUR ---
Patient resting. Responding to scheduled medications with fewer complaints of pain and anxiety. PT UP AND AMBULATING AD MAURI IN ROOM. VOICES NO NEEDS AT THIS TIME. CALL LIGHT IN REACH. DENIS FLOR
[2017-01-30 12:00] VITALS: BP 138/60
[2017-01-30 16:00] VITALS: BP 149/64
[2017-01-30 20:00] VITALS: BP 148/60
--- NOTE | 2017-01-30 21:52 | NUR ---
PATIENT RESTING IN BED. PATIENT DENIES ANY PAIN, DISCOMFORT OR SOB UPON ASSESSMENT. PATIENT HAS A SLIGHT WHEEZE ON EXPIRATION, BUT DENIES FEELING SOB ON RA. PATIENT IS A&OX3 AND AMBULATORY. PATIENT WAS PLEASANT AND COOPERATIVE UPON ASSESSMENT. CALL LIGHT WITHIN REACH, HOB ELEVATED. PATIENT REFUSED YARA HOSE. SEE ASSESSMENT.
[2017-01-31] VITALS: BP 147/60
[2017-01-31 07:53] LABS: HEMATOCRIT 36.1 % (42.0-52.0); HEMOGLOBIN 11.8 g/dl (14.0-18.0); MEAN CELL VOLUME 86.6 fl (80.0-94.0); MEAN CORPUSCULAR HGB 28.3 pg (27.0-31.0); MEAN CORPUSCULAR HGB CONC 32.7 g/dl (33.0-37.0); MEAN PLATELET VOLUME 10.1 fl (9.6-12.3); PLATELET COUNT AUTOMATED 271 10*3/uL (130-400); RED BLOOD COUNT 4.17 10*6/uL (4.50-5.90); RED CELL DISTRI WIDTH 14.2 % (0-14.5)
[2017-01-31 08:00] VITALS: BP 147/65
[2017-01-31 08:09] LABS: CREATININE 1.43 mg/dL (0.70-1.30); PHOSPHOROUS 3.5 mg/dL (2.5-4.9); POTASSIUM 4.7 mmol/L (3.5-5.1)
[2017-01-31 08:25] LABS: TOTAL CELLS COUNTED 100 #CELLS
[2017-01-31 08:26] LABS: PLATELET SUFFICIENCY NORMAL (NORMAL)
--- NOTE | 2017-01-31 09:27 | NUR ---
case management visits with patient, patient denies any home needs
[2017-01-31] MEDS ORDERED: PREDNISONE10 MG PO (12:42)
[2017-01-31] MEDS ORDERED: LEVAQUIN750 M1 PO (12:42)
[2017-01-31] MEDS ORDERED: VITAMIN D-32000 UNI1 PO (12:42)
--- NOTE | 2017-01-31 13:09 | NUR ---
Discharge instructions reviewed with patient/family. Patient receptive and verbalizes understanding. Follow-up care arranged. Written instructions given to patient/family. EPHRAIM MOSES
== END 2017-01-31 13:43 | disposition home or self-care (01) | DRG 682 ==
LOC: ED 14:40 → 5E 15:34 → EDHOLD 15:34 → 5E 16:08
PROVIDERS: Emergency Medicine; Internal Medicine Nephrology; Student in an Organized Health Care Education/Training Program; ADMIT Internal Medicine
DX: N17.0 Acute kidney failure with tubular necrosis (principal); J18.0 Bronchopneumonia, unspecified organism; E11.65 Type 2 diabetes mellitus with hyperglycemia; E87.1 Hypo-osmolality and hyponatremia; J84.10 Pulmonary fibrosis, unspecified; I48.91 Unspecified atrial fibrillation; J44.9 Chronic obstructive pulmonary disease, unspecified; D64.9 Anemia, unspecified; D72.810 Lymphocytopenia; I10 Essential (primary) hypertension; E78.5 Hyperlipidemia, unspecified; Z77.090 Contact with and (suspected) exposure to asbestos; D72.819 Decreased white blood cell count, unspecified; E55.9 Vitamin D deficiency, unspecified; R03.0 Elevated blood-pressure reading, without diagnosis of hypertension; Z96.653 Presence of artificial knee joint, bilateral; Z88.8 Allergy status to other drugs, medicaments and biological substances; Z79.899 Other long term (current) drug therapy; Z79.82 Long term (current) use of aspirin; Z90.49 Acquired absence of other specified parts of digestive tract; Z90.79 Acquired absence of other genital organ(s); Z87.891 Personal history of nicotine dependence; Z82.49 Family history of ischemic heart disease and other diseases of the circulatory system; Z81.8 Family history of other mental and behavioral disorders; Z83.1 Family history of other infectious and parasitic diseases; Z84.89 Family history of other specified conditions; Z78.9 Other specified health status

== ENCOUNTER → 2017-02-22 | Outpatient (CLI) | payer MEDICARE ==
[~2017-02-22] MED LIST changes: +ASPIRIN325 M2 PO; +LEVAQUIN750 M1 PO; +PRAVACHOL20 MG PO; +SINGULAIR10 M1 PO; +TEARS AGAIN OPH; +VITAMIN D-32000 UNI1 PO
== END | disposition home or self-care (01) ==
LOC: RAD 11:09
DX: J44.9 Chronic obstructive pulmonary disease, unspecified (principal); I48.91 Unspecified atrial fibrillation; Z87.891 Personal history of nicotine dependence; Z87.01 Personal history of pneumonia (recurrent)

== ENCOUNTER 2017-03-19 11:58 | Inpatient (IN) | payer MEDICARE ==
[~2017-03-19] VITALS: Ht 198.1 cm; Wt 105.9 kg
--- NOTE | ~2017-03-19 | CON ---
[place], [place] REPORT OF CONSULTATION [id number] #: [id number] ROOM: 402 DOCTOR: JOSH MARRUFO DO BIRTHDATE: [birth year] DOS: 03/21/2017 CHIEF COMPLAINT: Shortness of breath. HISTORY OF PRESENT ILLNESS: This is a 77-year-old male who came in with a past medical history of COPD and was presented with shortness of breath, productive cough, wheezing and chest congestion. The patient reports that these symptoms began around Thanksgiving and has had steady non-improvement of these symptoms for the past 2-1/2 months. The patient has associated nausea and vomiting, but denies any hemoptysis. The patient reports productive white sputum. The patient has been using nebulized treatments continuously at home 3-4 times a day with mild response. The patient denies fever, chills, chest pain, diarrhea or any other associated symptoms. PAST MEDICAL HISTORY: Asbestos exposure, atrial fibrillation, diabetes with hyperglycemia, essential hypertension, hyperlipidemia, left thyroid nodule, pulmonary fibrosis and vitamin D deficiency. PAST SURGICAL HISTORY: Bilateral orchiotomies, history of vein stripping, history of appendectomy, bilateral knee replacements and glaucoma surgery. SOCIAL HISTORY: The patient denies illicit drug and alcohol use. For tobacco abuse, the patient smoked 2 packs per day since age 18, but quit in 1970s when he was in his mid 40s. FAMILY HISTORY: Father has dementia, at age 89 secondary to pneumonia. Mother at age 93 due to cardiac disease. ALLERGIES: CEPHALEXIN, FLUTICASONE AND SALMETEROL. HOME MEDICATIONS: Ventolin, amiodarone, aspirin, Zyrtec, vitamin D, dorzolamide, DuoNebs, latanoprost, lisinopril, metformin, Lopressor, Singulair, daily multivitamin, pravastatin and trazodone. REVIEW OF SYSTEMS: GENERAL: The patient denies fever, chills, weight loss or weight gain. HEENT: The patient denies blurry vision, double vision, nasal discharge or dysphagia. CARDIOVASCULAR: The patient denies chest pain, palpitations or edema. RESPIRATORY: The patient complains of shortness of breath, cough and wheezing with white sputum. The patient denies hemoptysis. ABDOMEN: The patient complains of nausea and vomiting; however, denies abdominal pain with no diarrhea or constipation. NEUROLOGIC: The patient denies any headaches, lightheadedness or dizziness. SKIN: The patient denies rashes or lesions. LABORATORY DATA: White count 6.9, hemoglobin 10.8, hematocrit 34.5, platelet count 222. Chemistries: Sodium 138, potassium 4.8, chloride 102, carbon dioxide 24, BUN 37, creatinine 1.48, glucose 263, lactic acid 1.9, calcium 8.8. Blood cultures remain negative. Flu swab was negative. Chest x-ray on the [place], [place] REPORT OF CONSULTATION NAME: FRANDY GU UNIT #: [id number] ROOM: 402 DOCTOR: JOSH MARRUFO DO BIRTHDATE: [birth year] shows negative, no acute pulmonary disease. PHYSICAL EXAMINATION: VITAL SIGNS: Temperature 97.3, pulse is 66, respirations 20, blood pressure 120/60 and pulse ox is 97% on room air. GENERAL APPEARANCE: The patient is awake, alert and oriented x 3, no acute distress. HEENT: Eyes are clear. No injection. Nares are patent. Mucous membranes are moist. NECK: Supple, nontender. CARDIOVASCULAR: Regular rate and rhythm. S1, S2 appreciated. No murmurs, gallops or rubs. RESPIRATORY: Expiratory wheezes in all lung heredia, diminished breath sounds. No rales, no rhonchi. ABDOMEN: Soft, nontender with positive bowel sounds. EXTREMITIES: Clear of edema, erythema, clubbing or cyanosis. NEUROLOGIC: Negative for focal deficit. ASSESSMENT AND PLAN: 1. Acute on chronic respiratory failure with hypoxia. 2. Tobacco abuse history. 3. Hypertension. 4. Hyperlipidemia. 5. Diabetes. 6. Atrial fibrillation. TREATMENT PLAN: Continue with Mucinex, steroids, bronchodilators, flutter valve and Levaquin. The patient to be prepped for bronchoscopy for tomorrow, the patient agrees and the risks of the procedure were explained. The patient understands the risks and agrees to the procedure. We will continue to follow up cultures and adjust antibiotics as necessary noted. No acute change to current respiratory therapy plan. JOSH MARRUFO DO MAYRA ENGLISH MD CM:CONSTR:REPORT OF CONSULTATION 1314 03/21/17 2349 interface
--- NOTE | ~2017-03-19 | PR ---
[place], [place] PROGRESS NOTE NAME: FRANDY GU [facility] #: [id number] UNIT #: [id number] ROOM: 402 DOCTOR: TAMEKA STEVE MD,MAYRA BIRTHDATE: [birth year] DOS: 03/22/2017 SUBJECTIVE: The patient was noted comfortable at this time, but still noted severe cough. The patient remains unchanged from previously. Excessive cough noted without any sputum expectoration. Denies chest symptoms or chest pain. There was no headache. Chest pain was noted only with the cough ____ musculoskeletal. Denies any symptoms of change in the wheezing. Denies any abdominal pain. Denies any symptoms of headache. Remaining his systems were reviewed, they were noted all negative. OBJECTIVE: VITAL SIGNS: The patient showed normal temperature, respiratory rate 17, heart rate 69, blood pressure 152/72. The pulse oxygen saturation recorded on room air 98% saturation. HEENT: No acute change. NECK: Supple. CARDIOVASCULAR: S1, S2 audible. LUNGS: Moderate expiratory wheezing were noted in the lungs bilaterally. ABDOMEN: Soft, nontender. EXTREMITIES: Noted without any acute edema. SKIN: Visible skin, no lesions, rashes. MUSCULOSKELETAL: Without any deformities. CENTRAL NERVOUS SYSTEM: Intact. IMPRESSION AND PLAN: The patient with ongoing acute exacerbation of chronic obstructive pulmonary disease, bronchiectasis, and bronchial asthma. The patient with persistent severe cough. N.p.o. past midnight status. The bronchoscopy planned to be done today. The patient will be continued on current dose of steroids, bronchodilators, antibiotics. No change in treatment will be necessary right away. Any modification in treatment, if necessary will be done after bronchoscopy. MAYRA ENGLISH MD CM:PNTRANS 56 MAYRA STEVE MD 03/22/171955 interface
--- NOTE | ~2017-03-19 | PROC NOTE ---
[place], [place] PROCEDURE NOTE NAME: FRANDY GU UNIT #: [id number] ROOM: 402 DOCTOR: TAMEKA STEVE MD,MAYRA BIRTHDATE: [birth year] DOS: 03/22/2017 BRONCHOSCOPY NOTE PREOPERATIVE DIAGNOSES: Severe cough and wheezing, not resolving with current maximum medical therapy in an outpatient. POSTOPERATIVE DIAGNOSES: Very severe impaction of the mucous plug was noted with ongoing severe tracheobronchitis of the patient. In the endobronchial tree bilaterally, there were no endobronchial obstructive lesions. PROCEDURE DESCRIPTION: Informed consent obtained for the patient. The patient brought to the OR and placed in supine position. Conscious sedation administered by the Anesthesia Department. After achieving proper sedation, airway introduced into the mouth. Bronchoscope advanced to the airway into laryngeal area. Epiglottis and vocal cords were seen. The vocal cords were noted moving symmetrically with movements. Bronchoscope advanced to the vocal cord and tracheal lumen. Tracheal lumen was noted with a copious amount of thick purulent secretion which was suctioned out with the help of normal saline wash. Cheryl was noted sharp. Copious amount of purulent secretion present in all of the endobronchial tree including the right and left main stem bronchi. Mucous plugs was also noted distal bronchial subsegments as well. All secretions in the mucus plugs cleared out with half normal saline wash and sent to the lab for culture. Postoperative finding will be discussed once the patient recover the effects of acute sedation. No change at this time and the treatment will be necessary. MAYRA NEGLISH MD CM:PROCNOTE:PROCEDURE NOTE [id number] MAYRA STEVE MD
--- NOTE | ~2017-03-19 | PR ---
[place], [place] PROGRESS NOTE [id number] UNIT #: [id number] ROOM: 402 DOCTOR: TAMEKA STEVE MD,MAYRA BIRTHDATE: [birth year] DOS: 03/23/2017 SUBJECTIVE: The patient was noted comfortable at this time without any acute distress. The cough and shortness of breath and wheezing have improved markedly after bronchoscopy yesterday. The patient was resting this morning on his bed at this time with the assessment. OBJECTIVE: VITAL SIGNS: Normal temperature, respiratory rate 16, heart rate 67, blood pressure 115/87, pulse ox saturation on room air 95% saturation. HEENT: Shows no acute change. NECK: Supple. CARDIOVASCULAR: S1, S2 audible. LUNGS: The patient was noted without any wheezing or crackles. Breaths are noted mild to moderate decreased bilaterally. ABDOMEN: Soft, nontender. EXTREMITIES: Without any acute edema. LABORATORY DATA: Gram stain of the sputum and bronchial washing yesterday, moderate white blood cell, few Gram-positive cocci in pairs and chains with preliminary normal hodan noted. IMPRESSION: The patient who has been noted with resolution and improvement continue with acute exacerbation of bronchiectasis, bronchial asthma and chronic obstructive pulmonary disease after bronchoscopy. PLAN OF MANAGEMENT: The patient could be considered for home discharge today on tapering dose of prednisone and oral antibiotics of the primary care physician twice. Other supportive plan of management continued until then. Usual care. MAYRA ENGLISH MD CM:PNTRANS [id number] MAYRA STEVE MD 03/23/17 2311 interface
--- NOTE | ~2017-03-19 | CON ---
[place], [place] REPORT OF CONSULTATION NAME: FRANDY GU [facility] #: [id number] UNIT #: [id number] ROOM: 402 DOCTOR: TAMEKA STEVE MD,MAYRA BIRTHDATE: [birth year] DOS: 03/21/2017 PULMONARY CONSULTATION, EVALUATION AND MANAGEMENT CONSULTATION REQUESTED BY: Hospitalist services. REASON FOR CONSULTATION: To assess the patient for persistent respiratory symptoms of coughing, wheezing with acute exacerbation of chronic obstructive pulmonary disease. The patient was independently seen and examined in [id number] encounter. The history was confirmed for the patient. Physical examination was performed as well. The note, which was done by the medical lab technician was approved. The assessment and management of the patient for today's note was personally completed for this patient for today's visit as well. HISTORY OF PRESENT ILLNESS: A 77-year-old white male patient who came to the Emergency as the patient reported having symptoms of progressive increased shortness of breath occurring with [id number] exertion with excessive coughing with some sputum expectoration and he has significant chest congestion. Cough has been noted productive at that time noted nonproductive. The sputum expectoration described to be scanty. He has been using ____ at home and it is not resulting in improvement of the respiratory symptom. The patient denies symptoms of hemoptysis or any chest trauma. He had been admitted in this hospital in 01/2018. The patient remained in the hospital for 01/27/2017 until 01/31/2017 and managed for acute exacerbation of COPD. The patient stated symptoms of current ongoing respiratory tract were present since Thanksgiving. REVIEW OF SYSTEMS: Completed by the medical lab technician. PAST MEDICAL HISTORY: 1. Chronic obstructive pulmonary disease. 2. History of asbestos exposure. 3. Essential hypertension. 4. History of uncomplicated moderate persistent bronchial asthma. 5. Type 2 diabetes mellitus. 6. Hyperlipidemia. 7. Bronchiectasis. PAST SURGICAL HISTORY: 1. Bilateral orchiectomy. 2. Venous stripping of the lower extremity. 3. Appendectomy. 4. Bilateral total knee replacement. 5. Glaucoma. SOCIAL HISTORY: The patient is and lives at home. Tobacco use noted from the age of [age] years old, smoked very heavily 3 packs of cigarettes per day that was discontinued approximately 45 years ago. There was occupation related pulmonary exposure. There were no history of alcohol use or illicit drug use. [place], [place] REPORT OF CONSULTATION [facility] [id number] UNIT #: [id number] ROOM: 402 DOCTOR: TAMEKA STEVE MD,MAYRA BIRTHDATE: [birth year] FAMILY HISTORY: Father at the age of 8585 years old, complications of congestive heart failure. Mother at the age of 9090 years old, complications of coronary artery disease. CURRENT MEDICATIONS: ____, aspirin, lisinopril, multivitamin, Lovenox for DVT prophylaxis, simvastatin, Singulair, amiodarone, metoprolol tartrate, trazodone, Mucinex, Solu-Medrol 60 mg b.i.d., DuoNebs q.4 hours, Levaquin and other p.r.n. medications. DRUG ALLERGIES: Noted as allergy: 1. KEFLEX. 2. ADVAIR. PHYSICAL EXAMINATION: GENERAL: This is a 77-year-old white male who has been currently noted to be awake and alert without any acute distress. Height of 6 feet 6 inches, weight of 233 pounds, BMI 23.6. VITAL SIGNS: Normal temperature, respiratory rate of the patient recorded is 16, heart rate 77, blood pressure 124/57. HEENT: Examination of the patient shows head was atraumatic. Eyes nonicterus. NECK: Supple. CARDIOVASCULAR: S1, S2 is audible. LUNGS: The patient was noted without any crackles. Decreased breath sounds noted for the patient with expiratory wheezing bilaterally. ABDOMEN: Noted flat. EXTREMITIES: The patient noted without any edema, clubbing, cyanosis. CENTRAL NERVOUS SYSTEM: The patient was noted without any focal neurologic deficit. Cranial nerves 2-12 intact. MUSCULOSKELETAL: Without any acute deformities. SKIN: Noted without any lesions or rashes. LABORATORY DATA: Labs on this patient, lactic acid on 03/19/2017 was 1.9 that was normal. CBC 03/19/2017, hemoglobin 11.9, hematocrit 37.0. WBC count normal, platelet count were normal. CMP of the patient 03/19/2017, glucose 150, BUN and creatinine normal. Other electrolytes are normal. Troponin normal. Influenza A and B, nasal washing antigen negative on admission. The CBC of the patient on 03/20/2017 was noted mild anemia, otherwise normal. The BMP for the patient that were done yesterday, BUN was elevated at 28, creatinine 1.58, glucose 233. PT and PTT for the patient that was done yesterday was normal. BMP this morning, BUN 37, creatinine 1.48. The blood culture of the patient, which was taken on the 03/19/2017, preliminary showed no bacterial growths. The review of the radiology data for this patient was personally done. The review of the chest x-ray of the patient with the PACS images shows evidence of increased interstitial marking of the lower lungs with hyperinflation, changes of COPD. IMPRESSION: 1. The patient who has been currently admitted to the hospital noted progressive worsening of the respiratory symptom at this time on this admission [place], [place] REPORT OF CONSULTATION NAME: FRANDY GU UNIT #: [id number] ROOM: [facility] DOCTOR: TAMEKA STEVE MD,MAYRA BIRTHDATE: [birth year] with progressive most likely mucous impaction major airways. 2. Acute exacerbation of chronic obstructive pulmonary disease/bronchial asthma, bronchiectasis has been considered, increased marking of lower lung of the patient most likely representing the chronic bronchiectasis. There was no evidence of active pneumonia. 3. The patient was developed significant acute kidney injury secondary to most likely intravascular volume contraction versus interstitial nephritis would be considered. 4. History of chronic atrial fibrillation of the patient was also known as well. PLAN OF MANAGEMENT: Continue current dose of Solu-Medrol, bronchodilators and antibiotics. Suggest the antibiotics according to the kidney functions as well. Collect the sputum for Gram stain and culture. Therapeutic bronchoscopy was planned to be done in the morning. Continue intravenous fluid supplementation for the medical management of current acute kidney injury of the patient, but follow up for this patient closely for any fluid overload. Thank you for allowing me to participate in the care of this patient. MAYRA ENGLISH MD CM:CONSTR:REPORT OF CONSULTATION 1431 03/22/17 0428 interface
[2017-03-19 12:03] VITALS: BP 155/70
[2017-03-19 12:44] LABS: BASO % 0.4 % (0.0-1.0); EOS # 0.3 10*3/uL (0.0-0.4); EOS % 3.5 % (1.0-4.0); HEMOGLOBIN 11.9 g/dl (14.0-18.0); LYMPH # 0.8 10*3/uL (1.3-4.4); LYMPH % 11.7 % (27.0-41.0); MEAN CELL VOLUME 91.1 fl (80.0-94.0); MEAN CORPUSCULAR HGB 29.3 pg (27.0-31.0); MEAN CORPUSCULAR HGB CONC 32.2 g/dl (33.0-37.0); MEAN PLATELET VOLUME 10.2 fl (9.6-12.3); MONO % 14.6 % (3.0-9.0); NEUT # 4.9 10*3/uL (2.3-7.9); NEUT % 69.7 % (47.0-73.0); PLATELET COUNT AUTOMATED 230 10*3/uL (130-400); RED BLOOD COUNT 4.06 10*6/uL (4.50-5.90); WHITE BLOOD COUNT 7.1 10*3/uL (4.8-10.8)
[2017-03-19 12:58] LABS: ALBUMIN 3.6 gm/dl (3.1-4.5); ALKALINE PHOSPHATASE 60 U/L (45-117); BUN 15 mg/dl (7-24); CHLORIDE 100 mmol/L (98-107); CREATININE 1.25 mg/dL (0.70-1.30); SGOT/AST 12 IU/L (3-35); SGPT/ALT 19 U/L (12-78); SODIUM 138 mmol/L (136-145); TOTAL PROTEIN 7.6 gm/dL (6.4-8.2)
[2017-03-19 13:02] LABS: TROPONIN I < 0.015 ng/ml (<0.045)
[2017-03-19 14:11] VITALS: BP 114/51
[2017-03-19 15:32] VITALS: BP 119/61
[2017-03-19] MEDS ORDERED: DUONEB 3 MG/3 ML3 M1 INH (15:43)
[2017-03-19] MEDS ORDERED: ZYRTEC10 MG PO (15:48)
[2017-03-19 20:00] VITALS: BP 119/50
[2017-03-20] VITALS (9 sets, daily range): BP systolic 94–138; BP diastolic 43–62
[2017-03-20 07:00] LABS: HEMATOCRIT 34.5 % (42.0-52.0); HEMOGLOBIN 10.8 g/dl (14.0-18.0); MEAN CELL VOLUME 92.2 fl (80.0-94.0); MEAN CORPUSCULAR HGB 28.9 pg (27.0-31.0); MEAN CORPUSCULAR HGB CONC 31.3 g/dl (33.0-37.0); MEAN PLATELET VOLUME 10.6 fl (9.6-12.3); PLATELET COUNT AUTOMATED 222 10*3/uL (130-400); RED BLOOD COUNT 3.74 10*6/uL (4.50-5.90); RED CELL DISTRI WIDTH 15.2 % (0-14.5); WHITE BLOOD COUNT 6.9 10*3/uL (4.8-10.8)
[2017-03-20 07:27] LABS: PLATELET SUFFICIENCY NORMAL (NORMAL); TOTAL CELLS COUNTED 100 #CELLS
[2017-03-20 07:35] LABS: ACT PARTIAL THROMBO TIME 24.5 SECONDS (20.8-31.5)
[2017-03-20 07:37] LABS: ALBUMIN 3.2 gm/dl (3.1-4.5); CREATININE 1.58 mg/dL (0.70-1.30); PHOSPHOROUS 3.3 mg/dL (2.5-4.9); POTASSIUM 4.7 mmol/L (3.5-5.1); TOTAL PROTEIN 7.1 gm/dL (6.4-8.2)
[2017-03-21] VITALS: BP 117/54
[2017-03-21 06:44] LABS: CREATININE 1.48 mg/dL (0.70-1.30); POTASSIUM 4.8 mmol/L (3.5-5.1)
[2017-03-21 08:00] VITALS: BP 121/60
[2017-03-21 12:00] VITALS: BP 124/57
[2017-03-21 16:00] VITALS: BP 123/55
[2017-03-21 20:00] VITALS: BP 123/47
[2017-03-22] VITALS (9 sets, daily range): BP systolic 122–152; BP diastolic 51–73
[2017-03-22 10:46] LABS: HEMATOCRIT 33.6 % (42.0-52.0); HEMOGLOBIN 10.8 g/dl (14.0-18.0); LYMPH # 0.6 10*3/uL (1.3-4.4); LYMPH % 5.6 % (27.0-41.0); MEAN CELL VOLUME 91.6 fl (80.0-94.0); MEAN CORPUSCULAR HGB 29.4 pg (27.0-31.0); MEAN CORPUSCULAR HGB CONC 32.1 g/dl (33.0-37.0); MEAN PLATELET VOLUME 10.3 fl (9.6-12.3); MONO # 0.6 10*3/uL (0.1-1.0); MONO % 5.1 % (3.0-9.0); NEUT # 10.1 10*3/uL (2.3-7.9); NEUT % 88.3 % (47.0-73.0); PLATELET COUNT AUTOMATED 248 10*3/uL (130-400); RED BLOOD COUNT 3.67 10*6/uL (4.50-5.90); RED CELL DISTRI WIDTH 15.5 % (0-14.5); WHITE BLOOD COUNT 11.5 10*3/uL (4.8-10.8)
[2017-03-22 11:00] LABS: BUN 34 mg/dl (7-24); CHLORIDE 104 mmol/L (98-107); CREATININE 1.26 mg/dL (0.70-1.30); SODIUM 137 mmol/L (136-145)
[2017-03-23] VITALS: BP 124/62
[2017-03-23 08:01] VITALS: BP 159/87
[2017-03-23] MEDS ORDERED: DOXYCYCLINE100 M3 PO (10:08)
[2017-03-23] MEDS ORDERED: PREDNISONE10 MG PO (10:08)
[2017-03-23 17:10] LABS: ACID FAST SMEAR Negative (.); ACID FAST SPEC PROCESSING Concentration (.)
== END 2017-03-23 11:30 | disposition home or self-care (01) | DRG 871 ==
LOC: ED 11:58 → 4E 14:36 → EDHOLD 14:36 → 4E 14:59
PROVIDERS: Family Medicine; Internal Medicine; Internal Medicine Critical Care Medicine; Nurse Practitioner Family
PROC: 0BCB8ZZ Extirpation of Matter from Left Lower Lobe Bronchus, Via Natural or Artificial Opening Endoscopic (ICD-10-PCS; principal; 2017-03-22)
PROC: 0BC48ZZ Extirpation of Matter from Right Upper Lobe Bronchus, Via Natural or Artificial Opening Endoscopic (ICD-10-PCS; principal; 2017-03-22)
PROC: 0BC38ZZ Extirpation of Matter from Right Main Bronchus, Via Natural or Artificial Opening Endoscopic (ICD-10-PCS; principal; 2017-03-22)
PROC: 0BC98ZZ Extirpation of Matter from Lingula Bronchus, Via Natural or Artificial Opening Endoscopic (ICD-10-PCS; principal; 2017-03-22)
PROC: 0BC88ZZ Extirpation of Matter from Left Upper Lobe Bronchus, Via Natural or Artificial Opening Endoscopic (ICD-10-PCS; principal; 2017-03-22)
PROC: 0BC58ZZ Extirpation of Matter from Right Middle Lobe Bronchus, Via Natural or Artificial Opening Endoscopic (ICD-10-PCS; principal; 2017-03-22)
PROC: 0BC78ZZ Extirpation of Matter from Left Main Bronchus, Via Natural or Artificial Opening Endoscopic (ICD-10-PCS; principal; 2017-03-22)
PROC: 0BC68ZZ Extirpation of Matter from Right Lower Lobe Bronchus, Via Natural or Artificial Opening Endoscopic (ICD-10-PCS; principal; 2017-03-22)
PROC: 0BC18ZZ Extirpation of Matter from Trachea, Via Natural or Artificial Opening Endoscopic (ICD-10-PCS; principal; 2017-03-22)
DX: A41.9 Sepsis, unspecified organism (principal); J18.9 Pneumonia, unspecified organism; J96.21 Acute and chronic respiratory failure with hypoxia; N17.9 Acute kidney failure, unspecified; T17.590A Other foreign object in bronchus causing asphyxiation, initial encounter; E11.65 Type 2 diabetes mellitus with hyperglycemia; J84.10 Pulmonary fibrosis, unspecified; I48.2 Chronic atrial fibrillation; J44.0 Chronic obstructive pulmonary disease with (acute) lower respiratory infection; J44.1 Chronic obstructive pulmonary disease with (acute) exacerbation; D64.9 Anemia, unspecified; E04.1 Nontoxic single thyroid nodule; D72.810 Lymphocytopenia; I10 Essential (primary) hypertension; X58.XXXA Exposure to other specified factors, initial encounter; Z96.653 Presence of artificial knee joint, bilateral; J40 Bronchitis, not specified as acute or chronic; E78.5 Hyperlipidemia, unspecified; E55.9 Vitamin D deficiency, unspecified; Z88.1 Allergy status to other antibiotic agents; Z88.8 Allergy status to other drugs, medicaments and biological substances; Z79.51 Long term (current) use of inhaled steroids; Z79.899 Other long term (current) drug therapy; Z90.49 Acquired absence of other specified parts of digestive tract; Z87.891 Personal history of nicotine dependence; Z82.5 Family history of asthma and other chronic lower respiratory diseases; Z82.49 Family history of ischemic heart disease and other diseases of the circulatory system; Z82.0 Family history of epilepsy and other diseases of the nervous system; Z79.82 Long term (current) use of aspirin; Z79.84 Long term (current) use of oral hypoglycemic drugs; Y93.89 Activity, other specified; Y92.89 Other specified places as the place of occurrence of the external cause; Y99.8 Other external cause status

== ENCOUNTER 2017-04-08 10:42 | Inpatient (IN) | payer MEDICARE ==
[~2017-04-08] VITALS: Ht 198.1 cm; Wt 100.7 kg
--- NOTE | ~2017-04-08 | PROC NOTE ---
[place], [place] PROCEDURE NOTE NAME: FRANDY GU UNIT #: [id number] ROOM: 511 DOCTOR: TAMEKA STEVE MD,MAYRA BIRTHDATE: [birth year] DOS: 04/11/2017 BRONCHOSCOPY NOTE PREOPERATIVE DIAGNOSIS: The patient with recurrent cough, noted severe nonproductive, not resolving on current maximal medical therapy since admission. POSTOPERATIVE DIAGNOSES: The patient has evidence of severe purulent tracheobronchitis noted with copious amount of secretions in the left mainstem endobronchial tree. There were no obstructive lesions. PROCEDURE DESCRIPTION: Informed consent obtained from the patient. He was brought to the OR and placed in supine position. Conscious sedation administered by the Anesthesia Department. Achieving proper sedation, airway introduced into the mouth. Bronchoscope advanced to the airway into laryngeal area. Epiglottis and vocal cords were seen. Bronchoscope advanced to the vocal cord and tracheal lumen. Tracheal lumen was identified, noted a small amount of bilious secretion, suctioned out. Right upper, right middle, and right lower lobe openings were noted all patent with small amount of secretions, which were cleared up with the help of normal saline wash. Left main stem bronchus was noted with moderate to large amount of very purulent secretions coating the bronchial lumens. The left upper, lingula, lower lobe bronchi were noted with similar amount of copious purulent secretions, which was suctioned out with the help of normal saline wash. The bronchial washing was sent for appropriate culture. Procedure was well tolerated by the patient without complication. Postoperative finding will be discussed with the patient once the patient recovers the effects of acute sedation in detail. MAYRA ENGLISH MD CM:PROCNOTE:PROCEDURE NOTE [id number] MAYRA STEVE MD
--- NOTE | ~2017-04-08 | CON ---
[place], [place] REPORT OF CONSULTATION NAME: FRANDY GU UNIT #: [id number] ROOM: 511 DOCTOR: TAMEKA STEVE MDMAYRA BIRTHDATE: [birth year] DOS: 04/10/2017 REASON FOR CONSULTATION: Nonresolving cough. HISTORY OF PRESENT ILLNESS: This is a 77-year-old white male who has been noted with past history of bronchiectasis, bronchial asthma, has been admitted to this hospital in 03/2017 and discharge to home on 03/23/2017. The patient underwent therapeutic bronchoscopy at that time. The cultures of the bronchial washing were noted as no bacterial growth. The patient was discharged home on oral antibiotic and tapering prednisone. The patient stated that symptoms remain improved for few days and later noted with progressive increased respiratory symptoms for the last few days with increased cough, which has noted as a thick green sputum with moderate amount of sputum expectoration, currently noted without any sputum expectoration. He denies any symptoms of hemoptysis or chest trauma. REVIEW OF SYSTEMS: CONSTITUTIONAL: Fatigue was noted. EYES: Denies any burning, redness, or tenderness. EARS, NOSE, THROAT SYMPTOMS: No sore throat, hoarseness, otalgia, postnasal drainage or epistaxis. CARDIOVASCULAR: Denies anginal pain, edema or pain of the lower extremities. GASTROINTESTINAL: No dysphagia, nausea, vomiting, diarrhea, abdominal pain, hematemesis, melena, hematochezia. SKIN: No abnormal lesions or rashes. MUSCULOSKELETAL: Without any acute deformities. CENTRAL NERVOUS SYSTEM: Dizziness, headache, diplopia, syncopal episodes. Remaining systems were reviewed, they were noted all negative. Past medical history, surgical history, social history, and family history are reviewed. The patient remains unchanged except therapeutic bronchoscopy, which was done 03/22/2017. Please refer to that consultation note of 03/21/2017 available in the [facility] for the patient to have any reference. HOME MEDICATIONS: Administered noted use of lisinopril, Zyrtec, vitamin D, aspirin, Lovenox for DVT prophylaxis, Protonix, simvastatin, Singulair, amiodarone, metoprolol tartrate, trazodone, IV Solu-Medrol 60 mg t.i.d., Levaquin and others. DRUG ALLERGIES: NOTED ALLERGY TO: 1. Keflex. 2. Advair. PHYSICAL EXAMINATION: GENERAL: This is a 77-year-old male who has been currently noted sitting on the chair, without any acute distress. VITAL SIGNS: Height of 6 feet 6 inches, weight of 222 pounds, BMI 25.7. Shows normal temperature since admission of 03/2017. The respiratory rate range between 14-18, heart rate of 67-68, blood pressure 118/50-120/68. Pulse oxygen [place], [place] REPORT OF CONSULTATION NAME: FRANDY GU UNIT #: [id number] ROOM: [facility] DOCTOR: TAMEKA STEVE MD,MAYRA BIRTHDATE: [birth year] saturation on room air 98% saturation. HEENT: Head was atraumatic. Eyes: No icterus. Oral mucosa was moist. NECK: Supple. CARDIOVASCULAR: S1, S2 audible without any added sounds. LUNGS: Noted with generalized reduction of breath sounds, izzl-vn-[id number] expiratory wheezing without any crackles. ABDOMEN: Soft, nontender. VISIBLE SKIN: No lesions or rashes. MUSCULOSKELETAL: Without any acute deformities. CENTRAL NERVOUS SYSTEM: Cranial nerves 2-12 intact. No gross focal deficit. LABORATORY DATA: CBC that was done this morning, WBC count normal, hemoglobin 10.5, hematocrit 32.4, platelet count 153,000. CMP, BUN 30, creatinine was normal, glucose 261. Albumin was decreased. The chest x-ray that was done in ____ 2018 noted a small infiltration in the lingula. IMPRESSION: 1. The patient will be currently admitted to the hospital and noted with current ongoing findings of acute exacerbation of bronchiectasis with possibility of superimposed pneumonia. 2. Impaction of the mucous plug was also suspected without any improvement noted in the last 48 hours with current treatment with high dose of corticosteroids and antibiotics. PLAN OF MANAGEMENT: The patient will benefit from another therapy of bronchoscopy planned to be done tomorrow morning, n.p.o. past midnight status has been ordered. The dose of Solu-Medrol will be decreased to 60 mg b.i.d. should suffice. Continue bronchodilator treatment therapy, plan of management as well. Usual treatment, all other care and plan of therapies. MAYRA ENGLISH MD CM:CONSTR:REPORT OF CONSULTATION 1413 04/11/17 0147 interface
--- NOTE | ~2017-04-08 | PR ---
[place], [place] PROGRESS NOTE NAME: FRANDY GU [facility] #: [id number] UNIT #: [id number] ROOM: 511 DOCTOR: TAMEKA STEVE MD,MAYRA BIRTHDATE: [birth year] DOS: 04/12/2017 SUBJECTIVE: The patient had a bronchoscopy done yesterday. The patient reported with reduction in symptoms of cough; however, the resolution noted incomplete, still noted wheezing with shortness of breath on exertion. OBJECTIVE: VITAL SIGNS: Recorded, shows the temperature noted as normal. The respiratory rate of the patient recorded as 14, heart rate 71, blood pressure 160/80 this morning. The pulse oxygen saturation on room air was 96% saturation. HEENT: Examination shows no acute change. NECK: Supple. CARDIOVASCULAR: S1, S2 audible. LUNGS: Expiratory wheezing in the lungs bilaterally, which are noted mild to moderate. ABDOMEN: Soft, nontender. EXTREMITIES: Without any acute edema. LABORATORY DATA: Gram stain of the bronchial washing of the patient done yesterday was noted with many white blood cells, moderate gram-positive cocci in pairs and clusters. Final culture results for the patient was pending, preliminary reported a normal hodan. IMPRESSION: Severe acute tracheobronchitis, the patient is status post bronchoscopy with removal of the mucus plugs as well as acute exacerbation of bronchiectasis. PLAN OF MANAGEMENT: Continuation of the patient's antibiotics, bronchodilators, and oxygen supplementation. Other supportive therapy, plan of management and care plan. Usual treatment, other supportive plan of care and therapies. MAYRA ENGLISH MD CM:PNTRANS [id number] MAYRA STEVE MD 04/12/17 2335 interface
--- NOTE | ~2017-04-08 | PR ---
[place], [place] PROGRESS NOTE NAME: FRANDY GU UNIT #: [id number] ROOM: 511 DOCTOR: MAYRA FARRELL MD BIRTHDATE: [birth year] DOS: 04/13/2017 SUBJECTIVE: The patient noted comfortable at this time, resting on the bed without any distress. The coughing has been subsiding for the patient and decreasing, but not completely resolved. The cough has been noted mild, sometimes moderate. The patient without any sputum expectoration. Bronchoscopy done a couple of days ago. The frequency and intensity of the cough has been decreased. OBJECTIVE: VITAL SIGNS: Normal temperature, respiratory rate 18, heart rate 72, blood pressure 139/73. Pulse oxygen saturation for the patient on room air 97% saturation. HEENT: No acute change. NECK: Supple. CARDIOVASCULAR: S1, S2 is audible. LUNGS: Noted without any wheezing or crackles at this time. Wheezing has been decreased significantly yesterday. ABDOMEN: Soft and nontender. EXTREMITIES: Without any edema. LABORATORY DATA: BMP today: BUN 28, creatinine was normal. CBC today: WBC count normal, platelet count was normal. Culture of the bronchial washing is normal hodan. Acid fast bacillus noted negative and the smear of the bronchial washings pending results. IMPRESSION: The patient with acute bronchiectasis exacerbation, acute bronchitis with gradual reduction of the respiratory symptoms has been noted. PLAN OF MANAGEMENT: The patient could be considered for home discharge on oral antibiotic, tapering prednisone, use of his respiratory medications. Outpatient followup with patient if you wish to do that could be established. Otherwise, continue followup by the primary care physician. [place], [place] PROGRESS NOTE NAME: FRANDY GU UNIT #: [id number] ROOM: 511 DOCTOR: MAYRA FARRELL MD BIRTHDATE: [birth year] MAYRA ENGLISH MD CM:PNTRANS [phone] MAYRA STEVE MD 04/13/171942 interface
--- NOTE | ~2017-04-08 | PR ---
[place], [place] PROGRESS NOTE NAME: FRANDY GU UNIT #: [id number] ROOM: 511 DOCTOR: MAYRA FARRELL MD BIRTHDATE: [birth year] DOS: 04/11/2017 SUBJECTIVE: The patient has continuous severe nonproductive cough, noted fatigue and tiredness and shortness of breath and wheezing. Denies symptoms of chest pain. Denies symptoms of hemoptysis. Denies symptoms of nausea, vomiting, diarrhea, abdominal pain. Denies symptoms of dysuria, suprapubic pain, or hematuria. Denies edema, pain in the lower extremities. Denies any muscular pain, dizziness, headache, or diplopia. Currently, the patient is noted n.p.o. past midnight for bronchoscopy that was to be done today. The remaining systems were reviewed, they were noted all negative. OBJECTIVE: VITAL SIGNS: Reviewed for the patient in the last 24-hour, normal temperature, respiratory rate 16-20, heart rate 70-80, blood pressure 130/72-150/68. Pulse oxygen saturation on room air was 96% saturation. HEENT: No acute change. NECK: Supple. CARDIOVASCULAR: S1, S2 audible. LUNGS: The patient was noted without any crackles. Decreased breath sounds noted in the lungs with scattered expiratory wheezing. ABDOMEN: Soft, nontender and flat. EXTREMITIES: No edema. MUSCULOSKELETAL: Without any deformity. SKIN: No lesions or rashes, which was visible. LABORATORY DATA: Blood culture from the 18th of this month showed no bacterial growth. No other new labs were done today. IMPRESSION: 1. Severe nonproductive cough with ongoing acute exacerbation of bronchiectasis and exacerbation of chronic obstructive pulmonary disease. 2. The patient with mild steroid-induced hyperglycemia as well. 3. Mild anemia of chronic disease. PLAN OF MANAGEMENT: Keep the patient n.p.o. Proceed with bronchoscopy as planned. Any modification of treatment if necessary will be done after bronchoscopy. Continue medical management of hyperglycemic as well with the sliding scale insulin coverage. Any additional treatment change if necessary will be done after the bronchoscopy. Usual care. [place], [place] PROGRESS NOTE NAME: FRANDY GU UNIT #: [id number] ROOM: 511 DOCTOR: MAYRA FARRELL MD BIRTHDATE: [birth year] MAYRA ENGLISH MD CM:HOA [phone] MAYRA STEVE MD 04/12/17 0230 interface
[~2017-04-08 10:42] MED LIST changes: +DOXYCYCLINE100 M3 PO
[2017-04-08 10:50] VITALS: BP 132/79
[2017-04-08 11:19] LABS: BASO % 0.2 % (0.0-1.0); EOS # 0.2 10*3/uL (0.0-0.4); EOS % 1.4 % (1.0-4.0); HEMATOCRIT 39.3 % (42.0-52.0); HEMOGLOBIN 12.8 g/dl (14.0-18.0); LYMPH # 1.1 10*3/uL (1.3-4.4); MEAN CELL VOLUME 89.5 fl (80.0-94.0); MEAN CORPUSCULAR HGB 29.2 pg (27.0-31.0); MEAN CORPUSCULAR HGB CONC 32.6 g/dl (33.0-37.0); MEAN PLATELET VOLUME 9.7 fl (9.6-12.3); MONO # 1.1 10*3/uL (0.1-1.0); MONO % 9.3 % (3.0-9.0); NEUT # 9.5 10*3/uL (2.3-7.9); NEUT % 79.8 % (47.0-73.0); PLATELET COUNT AUTOMATED 158 10*3/uL (130-400); RED BLOOD COUNT 4.39 10*6/uL (4.50-5.90); RED CELL DISTRI WIDTH 14.9 % (0-14.5); WHITE BLOOD COUNT 11.9 10*3/uL (4.8-10.8)
[2017-04-08 11:33] LABS: ALBUMIN 3.2 gm/dl (3.1-4.5); CREATININE 1.43 mg/dL (0.70-1.30); POTASSIUM 4.9 mmol/L (3.5-5.1); TOTAL PROTEIN 7.5 gm/dL (6.4-8.2)
[2017-04-08 12:25] VITALS: BP 122/56
[2017-04-08 13:00] VITALS: BP 119/59
[2017-04-08 16:00] VITALS: BP 102/47
[2017-04-08 20:00] VITALS: BP 121/77
[2017-04-09] VITALS: BP 95/55
[2017-04-09 06:41] LABS: HEMATOCRIT 33.9 % (42.0-52.0); MEAN CELL VOLUME 92.1 fl (80.0-94.0); MEAN CORPUSCULAR HGB 29.1 pg (27.0-31.0); MEAN CORPUSCULAR HGB CONC 31.6 g/dl (33.0-37.0); MEAN PLATELET VOLUME 9.9 fl (9.6-12.3); PLATELET COUNT AUTOMATED 142 10*3/uL (130-400); RED BLOOD COUNT 3.68 10*6/uL (4.50-5.90); RED CELL DISTRI WIDTH 15.1 % (0-14.5); WHITE BLOOD COUNT 7.3 10*3/uL (4.8-10.8)
[2017-04-09 06:44] LABS: HEMOGLOBIN 10.7 g/dl (14.0-18.0)
[2017-04-09 06:57] LABS: CREATININE 1.71 mg/dL (0.70-1.30); PHOSPHOROUS 3.7 mg/dL (2.5-4.9)
[2017-04-09 07:05] LABS: THYROID STIM HORMONE (HS) 0.091 uIU/ml (0.358-4.75)
[2017-04-09 07:48] LABS: BURR CELLS FEW; PLATELET SUFFICIENCY NORMAL (NORMAL); TOTAL CELLS COUNTED 100 #CELLS
[2017-04-09 08:00] VITALS: BP 95/41
[2017-04-09 08:37] LABS: VITAMIN D, 25-HYDROXY 27.3 ng/mL (30-100)
[2017-04-09 12:00] VITALS: BP 99/46
[2017-04-09 16:00] VITALS: BP 113/52
[2017-04-09 20:00] VITALS: BP 123/49
[2017-04-10 00:31] VITALS: BP 118/50
[2017-04-10 06:46] LABS: HEMATOCRIT 32.4 % (42.0-52.0); HEMOGLOBIN 10.5 g/dl (14.0-18.0); MEAN CELL VOLUME 90.8 fl (80.0-94.0); MEAN CORPUSCULAR HGB 29.4 pg (27.0-31.0); MEAN CORPUSCULAR HGB CONC 32.4 g/dl (33.0-37.0); PLATELET COUNT AUTOMATED 153 10*3/uL (130-400); RED BLOOD COUNT 3.57 10*6/uL (4.50-5.90); RED CELL DISTRI WIDTH 15.3 % (0-14.5); WHITE BLOOD COUNT 10.6 10*3/uL (4.8-10.8)
[2017-04-10 06:50] LABS: ALBUMIN 2.6 gm/dl (3.1-4.5); ALKALINE PHOSPHATASE 50 U/L (45-117); BUN 30 mg/dl (7-24); CHLORIDE 104 mmol/L (98-107); CREATININE 1.27 mg/dL (0.70-1.30); POTASSIUM 4.9 mmol/L (3.5-5.1); SGOT/AST 9 IU/L (3-35); SGPT/ALT 18 U/L (12-78); SODIUM 138 mmol/L (136-145); TOTAL PROTEIN 6.3 gm/dL (6.4-8.2)
[2017-04-10 07:12] LABS: PLATELET SUFFICIENCY NORMAL (NORMAL); TOTAL CELLS COUNTED 100 #CELLS
[2017-04-10 08:00] VITALS: BP 120/68
[2017-04-10 12:00] VITALS: BP 118/64
[2017-04-10 16:00] VITALS: BP 118/56
[2017-04-10 20:00] VITALS: BP 145/66
[2017-04-11] VITALS (8 sets, daily range): BP systolic 114–150; BP diastolic 48–72
[2017-04-12 00:09] VITALS: BP 137/60
[2017-04-12 07:30] VITALS: BP 160/80
[2017-04-12 12:00] VITALS: BP 130/66
[2017-04-12 14:00] VITALS: BP 130/66
[2017-04-12 16:00] VITALS: BP 146/65
[2017-04-12 16:13] LABS: ACID FAST SMEAR Negative (.); ACID FAST SPEC PROCESSING Concentration (.)
[2017-04-12 20:00] VITALS: BP 133/49
[2017-04-13] VITALS: BP 135/57
[2017-04-13 06:48] LABS: HEMATOCRIT 32.9 % (42.0-52.0); MEAN CELL VOLUME 89.9 fl (80.0-94.0); MEAN CORPUSCULAR HGB 30.1 pg (27.0-31.0); MEAN CORPUSCULAR HGB CONC 33.4 g/dl (33.0-37.0); MEAN PLATELET VOLUME 10.1 fl (9.6-12.3); PLATELET COUNT AUTOMATED 176 10*3/uL (130-400); RED BLOOD COUNT 3.66 10*6/uL (4.50-5.90); RED CELL DISTRI WIDTH 14.8 % (0-14.5)
[2017-04-13 07:13] LABS: ATYPICAL LYMPHS 1 % (0-0); TOTAL CELLS COUNTED 100 #CELLS
[2017-04-13 07:14] LABS: BURR CELLS FEW; PLATELET SUFFICIENCY NORMAL (NORMAL); TARGET CELLS FEW
[2017-04-13 07:15] LABS: BUN 28 mg/dl (7-24); CHLORIDE 99 mmol/L (98-107); CREATININE 1.15 mg/dL (0.70-1.30); POTASSIUM 4.5 mmol/L (3.5-5.1); SODIUM 134 mmol/L (136-145)
[2017-04-13 08:00] VITALS: BP 139/73
[2017-04-13 12:00] VITALS: BP 152/76
[2017-04-13] MEDS ORDERED: PREDNISONE10 MG PO (13:14)
[2017-04-13] MEDS ORDERED: VIBRAMYCIN100 MG PO (13:14)
== END 2017-04-13 14:42 | disposition home or self-care (01) | DRG 871 ==
LOC: ED 10:42 → 5E 12:15 → EDHOLD 12:15 → 5E 12:38
PROVIDERS: Internal Medicine; Internal Medicine Critical Care Medicine; Nurse Practitioner Family; Registered Nurse; Student in an Organized Health Care Education/Training Program
PROC: 0BC98ZZ Extirpation of Matter from Lingula Bronchus, Via Natural or Artificial Opening Endoscopic (ICD-10-PCS; principal; 2017-04-11)
PROC: 0BC78ZZ Extirpation of Matter from Left Main Bronchus, Via Natural or Artificial Opening Endoscopic (ICD-10-PCS; principal; 2017-04-11)
PROC: 0BC58ZZ Extirpation of Matter from Right Middle Lobe Bronchus, Via Natural or Artificial Opening Endoscopic (ICD-10-PCS; principal; 2017-04-11)
PROC: 0BC88ZZ Extirpation of Matter from Left Upper Lobe Bronchus, Via Natural or Artificial Opening Endoscopic (ICD-10-PCS; principal; 2017-04-11)
PROC: 0BC18ZZ Extirpation of Matter from Trachea, Via Natural or Artificial Opening Endoscopic (ICD-10-PCS; principal; 2017-04-11)
PROC: 0BC38ZZ Extirpation of Matter from Right Main Bronchus, Via Natural or Artificial Opening Endoscopic (ICD-10-PCS; principal; 2017-04-11)
PROC: 0BC48ZZ Extirpation of Matter from Right Upper Lobe Bronchus, Via Natural or Artificial Opening Endoscopic (ICD-10-PCS; principal; 2017-04-11)
PROC: 0BC68ZZ Extirpation of Matter from Right Lower Lobe Bronchus, Via Natural or Artificial Opening Endoscopic (ICD-10-PCS; principal; 2017-04-11)
PROC: 0BCB8ZZ Extirpation of Matter from Left Lower Lobe Bronchus, Via Natural or Artificial Opening Endoscopic (ICD-10-PCS; principal; 2017-04-11)
DX: A41.9 Sepsis, unspecified organism (principal); J18.0 Bronchopneumonia, unspecified organism; N17.1 Acute kidney failure with acute cortical necrosis; E87.2 Acidosis; T17.590A Other foreign object in bronchus causing asphyxiation, initial encounter; E11.65 Type 2 diabetes mellitus with hyperglycemia; I48.91 Unspecified atrial fibrillation; J44.1 Chronic obstructive pulmonary disease with (acute) exacerbation; E87.1 Hypo-osmolality and hyponatremia; J44.0 Chronic obstructive pulmonary disease with (acute) lower respiratory infection; D63.8 Anemia in other chronic diseases classified elsewhere; E87.8 Other disorders of electrolyte and fluid balance, not elsewhere classified; R65.20 Severe sepsis without septic shock; Z96.653 Presence of artificial knee joint, bilateral; I10 Essential (primary) hypertension; E55.9 Vitamin D deficiency, unspecified; T38.0X5A Adverse effect of glucocorticoids and synthetic analogues, initial encounter; J20.9 Acute bronchitis, unspecified; X58.XXXA Exposure to other specified factors, initial encounter; Z88.1 Allergy status to other antibiotic agents; Z88.8 Allergy status to other drugs, medicaments and biological substances; Y92.89 Other specified places as the place of occurrence of the external cause; Z79.899 Other long term (current) drug therapy; Z90.49 Acquired absence of other specified parts of digestive tract; Z87.891 Personal history of nicotine dependence; Z82.49 Family history of ischemic heart disease and other diseases of the circulatory system; Z82.5 Family history of asthma and other chronic lower respiratory diseases; Y93.89 Activity, other specified; Y99.8 Other external cause status; Z87.01 Personal history of pneumonia (recurrent); Z79.82 Long term (current) use of aspirin; Z79.84 Long term (current) use of oral hypoglycemic drugs; Z79.51 Long term (current) use of inhaled steroids

== ENCOUNTER → 2017-04-27 | Outpatient (CLI) | payer MEDICARE | END | disposition home or self-care (01) | LOC: CARD 10:50 | DX: I48.2 Chronic atrial fibrillation (principal) ==

== ENCOUNTER 2017-05-02 13:40 | Inpatient (IN) | payer MEDICARE ==
[~2017-05-02] VITALS: Ht 198.1 cm; Wt 102.6 kg
[2017-05-02] VITALS (7 sets, daily range): BP systolic 86–108; BP diastolic 50–60
--- NOTE | ~2017-05-02 | PR ---
[place], [place] PROGRESS NOTE NAME: FRANDY GU [facility] #: [id number] UNIT #: [id number] ROOM: 517 DOCTOR: TAMEKA STEVE MD,MAYRA BIRTHDATE: [birth year] DOS: 05/09/2017 PULMONARY PROGRESS NOTE SUBJECTIVE: The patient noted comfortable at this time, sitting on the bed, stated he expectorated large amount of sputum last night, feeling better this morning. Denies symptoms of shortness of breath. Denies symptoms of wheezing or chest pain. OBJECTIVE: VITAL SIGNS: Show normal temperature, respiratory rate 20, heart rate 69, blood pressure 149/71. The pulse oxygen saturation room air was 95% saturation. HEENT: Head was atraumatic. Eyes: No icterus. NECK: Supple. CARDIOVASCULAR: S1, S2 is audible. LUNGS: Noted without any wheeze or crackles at present time. Breaths sounds are noted decreased. Scattered crackles in the lungs still noted. ABDOMEN: Soft, nontender. Bowel sound present. EXTREMITIES: Without any acute edema. IMPRESSION: 1. Resolving nodular infiltration of the lung radiologically and clinically. Bronchial washing noted negative. 2. Improving acute bronchiectasis exacerbation. PLAN OF MANAGEMENT: Discontinue Solu-Medrol. Start the patient on oral prednisone, that will be tapered off. Discontinuation of the vancomycin for this patient. Instead, the patient will be started on oral doxycycline and continue the Levaquin as the other antibiotic. Supportive therapy, plan of management and other care. Usual care, other treatment therapy, plan of management. Discharge planning could be started for home discharge for this patient on oral Levaquin and the doxycycline and tapering dose of prednisone. MAYRA ENGLISH MD CM:PNTRANS [phone] MAYRA STEVE MD 05/09/17 1708 interface
--- NOTE | ~2017-05-02 | PROC NOTE ---
[place], [place] PROCEDURE NOTE NAME: FRANDY GU [facility] #: [id number] UNIT #: [id number] ROOM: 517 DOCTOR: MILES AUSTIN BIRTHDATE: [birth year] DOS: 05/03/2017 MODIFIED BARIUM SWALLOW LOCATION: [facility], room 517, bed 1. ORDERING PHYSICIAN: Jose Mckinnon DO. RADIOLOGIST: Dr. Wright. BACKGROUND INFORMATION: The patient a 77-year-old male who was seen for modified barium swallow. This test was ordered due to persistent cough and shortness of breath and to rule out silent aspiration. The patient was alert and oriented and denied any swallowing difficulty. He receives a regular diet and thin liquid. Further medical history significant for COPD, AFib, asbestos exposure, DM, and hypertension. He was alert and able to follow all commands for the assessment. Oral peripheral examination revealed lingual labial and buccal skills within normal limits in terms of strength, range of motion, and coordination. The patient presented with upper and lower dentures with adequate fit reported. METHODS AND MATERIALS USED FOR THE EXAM: The patient was positioned in the lateral plane and exam was viewed under fluoroscopy. The patient was presented with a variety of consistencies to assess swallowing skills including applesauce mixed with barium presented in half teaspoon amounts, barium-coated cookie and sandwich taken in bite size pieces and thin liquid barium taken by cup. ORAL PHASE: Unremarkable. PHARYNGEAL PHASE: The pharyngeal swallow occurred within a timely manner. Laryngeal elevation and epiglottic function were adequate with consistencies; however, during one instance of swallowing thin liquid by cup, a small amount of transient upper airway penetration occurred, this did not occur with any other consistency and at any other time with the thin liquid. No aspiration occurred with any consistency. ESOPHAGEAL PHASE: This phase of the swallow was not formally assessed during this exam. IMPRESSIONS AND RECOMMENDATIONS: Based upon assessment results, this 77-year-old patient presents with swallowing skills that are within functional limits. It is recommended that he remain on present diet. No followup therapy is warranted at this time. The patient was educated on use of universal safe swallow precautions. He verbalized understanding and agreement of all information provided. Thank you very much for this referral. Should you have any questions regarding this patient, please contact the speech pathologist at [phone]. [place], [place] PROCEDURE NOTE NAME: FRANDY GU UNIT #: [id number] ROOM: [facility] DOCTOR: MILES AUSTIN BIRTHDATE: [birth year] MILES AUSTIN CM:PROCNOTE:PROCEDURE NOTE [id number] MILES AUSTIN
--- NOTE | ~2017-05-02 | PROC NOTE ---
[place], [place] PROCEDURE NOTE [facility] [id number] UNIT #: [id number] ROOM: 517 DOCTOR: TAMEKA STEVE MD,MAYRA BIRTHDATE: [birth year] DOS: 05/07/2017 BRONCHOSCOPY NOTE PREOPERATIVE DIAGNOSIS: Persistent cough without any sputum expectoration. POSTOPERATIVE DIAGNOSES: Removal of multiple plugs of the mucus from the endobronchial tree bilaterally, possibility of acute bronchitis as well. No obstructive lesions. PROCEDURE DESCRIPTION: Informed consent obtained for the patient. He was brought to the OR and placed in supine position. After that, the airway introduced into the mouth. Bronchoscope was advanced to the airway into laryngeal area. Epiglottis and vocal cords seen. Vocal cords moving with symmetrical movement. Bronchoscope advanced to vocal cord. Tracheal lumen shows moderate amount of thick mucus secretion, which was cleared out with the help of normal saline wash. Cheryl noted sharp. The right upper, right middle, right lower, left upper, lingular lower lobe bronchi were all examined. The patient was noted with thick plugs of the mucus in the endobronchial tree with some purulent secretion in the lower portion of the endobronchial tree. All the secretions were suctioned out clear with normal saline wash. The secretion was sent for appropriate cultures. The procedure was well tolerated by the patient. MAYRA ENGLISH MD CM:PROCNOTE:PROCEDURE NOTE [id number] MAYRA STEVE MD
--- NOTE | ~2017-05-02 | PR ---
[place], [place] PROGRESS NOTE NAME: FRANDY GU [facility] #: [id number] UNIT #: [id number] ROOM: 517 DOCTOR: TAMEKA STEVE MD,MAYRA BIRTHDATE: [birth year] DOS: 05/05/2017 SUBJECTIVE: He has been noted with increased chest congestion. The patient with inability to expectorate sputum in the last 24 hours. Shortness breath noted with mild exertion. Wheezing was noted intermittently. Denies symptoms of chest pain or abdominal pain. The patient has been noted with generalized weakness, fatigue that persisted. Denies symptoms of headache or diplopia. Denies symptoms of nausea, vomiting, diarrhea or pain of the lower extremities. Remaining systems reviewed for the patient noted all negative. OBJECTIVE: VITAL SIGNS: For the patient, which has been recorded showed normal temperature, respiratory rate 18, heart rate 64, blood pressure 150/71-126/62. Pulse oxygen saturation is 95% saturation. HEENT: Examination shows no acute change. NECK: Supple. CARDIOVASCULAR: S1, S2 is audible. LUNGS: Noted without any wheezing or crackles at the present time. Breaths are noted generally decreased bilaterally with crackles in the lung were noted bilaterally. ABDOMEN: Soft, flat, nontender. EXTREMITIES: Without any acute edema. SKIN: No lesions or rashes. MUSCULOSKELETAL SYMPTOMS: Without any acute deformities. GENITOURINARY: No focal deficits. LABORATORY DATA: BMP of this morning, glucose 197, BUN 25, creatinine was normal. Remaining electrolytes were normal. CBC this morning, hemoglobin 9.3, hematocrit 28.9, platelet count 233,000. IMPRESSION: 1. Progressive cough was noted with bilateral nodular density in the lungs. 2. Ineffective cough and acute bronchiectasis, acute exacerbation. 2. Chronic obstructive pulmonary disease acute exacerbation as well. 3. 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 PLAN OF MANAGEMENT: The patient is not able to expectorate any sputum at this time for the cultures and assessment for the acid fast test, which was repeated. The patient's sputum could not be done. He will benefit from therapy bronchoscopy and will be done on Sunday morning. The patient was agreeable for the procedure. In the meantime, continue high dose of Mucinex, bronchodilators, flutter valve and other medical management. Dose of Solu-Medrol to be decreased to 40 mg daily since the patient's wheezing has been noted with the reduction. [place], [place] PROGRESS NOTE NAME: FRANDY GU UNIT #: [id number] ROOM: [facility] DOCTOR: MAYRA FARRELL MD BIRTHDATE: [birth year] MAYRA ENGLISH MD CM:PNTRANS [id number] MAYRA STEVE MD 05/17/17 0931 interface
--- NOTE | ~2017-05-02 | PR ---
[place], [place] PROGRESS NOTE NAME: FRANDY GU [facility] #: [id number] UNIT #: [id number] ROOM: 517 DOCTOR: TAMEKA STEVE MD,MAYRA BIRTHDATE: [birth year] DOS: 05/10/2017 SUBJECTIVE: He has been noted comfortable. Gradual reduction and improvement in respiratory symptoms reported. The coughing has been noted productive. Intermittent sputum expectoration, other respiratory symptoms were resolving. There were no symptoms of chest pain or hemoptysis. OBJECTIVE: VITAL SIGNS: For the patient which has been recorded showed normal temperature, respiratory rate 20, heart rate 87, blood pressure 134/68. Pulse ox saturation on room air was 96% saturation. HEENT: Shows head was atraumatic. Eyes nonicterus. NECK: Supple. CARDIOVASCULAR: S1, S2 audible. LUNGS: Scattered occasional crackles, no wheezing. ABDOMEN: Soft, nontender. EXTREMITIES: Without any acute edema. LABORATORY DATA: Culture of the bronchial washing were ordered and noted with moderate growth of yeast and normal hodan isolation. Acid-fast bacillus smear was noted negative. Pending cultures. IMPRESSION: Resolving acute pneumonia bilaterally as well as acute exacerbation of bronchiectasis gradually. PLAN OF MANAGEMENT: The patient could be discharged home on oral antibiotic, Levaquin, doxycycline and tapering dose of prednisone. Follow up with the Hematology Service for assessment of possibly starting the patient on intravenous gamma globulins to prevent the recurrent hospitalization and infections. MAYRA ENGLISH MD CM:PNTRANS [id number] MAYRA STEVE MD 05/11/17 0028 interface
--- NOTE | ~2017-05-02 | PR ---
[place], [place] PROGRESS NOTE NAME: FRANDY GU [facility] #: [id number] UNIT #: [id number] ROOM: 517 DOCTOR: TAMEKA STEVE MD,MAYRA BIRTHDATE: [birth year] DOS: 05/08/2017 SUBJECTIVE: He has a bronchoscopy done yesterday with reduction of cough; however, the resolution noted incomplete. Still noted some gurgling feeling in the chest. The cough has been noted with some sputum expectoration at times, other times nonproductive. REVIEW OF SYSTEMS: The patient denies dizziness, headache, or diplopia. Complaining of general weakness. Appetite was noted fair. Remaining system review of the patient, they were noted negative. OBJECTIVE: VITAL SIGNS: Showed normal temperature, respiratory rate 20, heart rate 68, blood pressure 162/68. The pulse oxygen saturation on room air 94% saturation at rest. HEENT: Showed no acute change. NECK: Supple. CARDIOVASCULAR: S1, S2 is audible. LUNGS: The patient was noted without any wheezing. The crackles still noted in the lower portion of the lungs bilaterally, greater on the right than the left side. ABDOMEN: Soft, nontender. EXTREMITIES: Extremities was noted without any edema, clubbing, cyanosis. SKIN: Visible no lesions or rashes. MUSCULOSKELETAL: Without any acute deformities. CENTRAL NERVOUS SYSTEM: No focal deficit. Cranial nerves 2-12 intact. LABORATORY DATA: The patient's CBC, hemoglobin 9.9, and hematocrit 30.0. WBC count normal. Platelet count normal. Blood culture, no bacterial growth from the 14th of this month. The bronchial washing culture, normal hodan. BMP: Glucose 133. TB Gold test for patient noted with indeterminate. The patient's Gram stain of the bronchial washings yesterday, many white blood cells, moderate gram-positive cocci in pairs, chains and clusters. IMPRESSION: 1. The patient who has been noted with bilateral pulmonary nodular opacity in the lungs with ongoing acute exacerbation of bronchiectasis and chronic obstructive pulmonary disease/bronchial asthma. 2. Common variable hypogammaglobulinemia. PLAN OF MANAGEMENT: Continue current antibiotic therapy at this time. Significant current indeterminate TB Gold test remains unknown. Monitor culture results for acid fast bacillus. The smear was noted negative. Other supportive therapy and plan of management. Additional treatment changes will be done for this patient based on available results. Repeat chest x-ray will be done for the patient in the morning to reassess the progression of the current nodular infiltration in the lungs. The assessment and management discussed with the patient and, Kade Plunkett, nurse practitioner seeing the patient today. The patient has been told about snf facility placement in another facility for monitoring and management as well as medications infusions for [place], [place] PROGRESS NOTE NAME: FRANDY UG UNIT #: [id number] ROOM: [facility] DOCTOR: TAMEKA STEVE MD,MAYRA BIRTHDATE: [birth year] close monitoring, but the patient declined to do so. MAYRA ENGLISH MD CM:PNTRANS [id number] MAYRA STEVE MD 05/08/17 1806 interface
--- NOTE | ~2017-05-02 | EKG ---
[place], [place] ELECTROCARDIOGRAM REPORT NAME: FRANDY GU UNIT #: [id number] ROOM: [facility] DOCTOR: TAMEKA STEVE MD,MAYRA BIRTHDATE: [birth year] DOS: 05/05/2017 ELECTROCARDIOGRAM TIME: 11:08 a.m. IMPRESSION: Normal sinus rhythm noted. Heart rate 97 beats per minute. Possibility LVH would be considered based on the voltage criteria in the chest leads. MAYRA ENGLISH MD CM:EKGRPT:ELECTROCARDIOGRAM REPORT [id number] MAYRA STEVE MD
--- NOTE | ~2017-05-02 | PR ---
[place], [place] PROGRESS NOTE NAME: FRANDY GU [facility] #: [id number] UNIT #: [id number] ROOM: 517 DOCTOR: TAMEKA STEVE MD,MAYRA BIRTHDATE: [birth year] DOS: 05/06/2017 SUBJECTIVE: The patient was noted at this time, sitting on the bed, still noted that coughing stated he has expectorated sputum last night and some this morning, still noted excessive chest congestion, not able to expectorate much of the sputum. Shortness of breath has been noted the same with no central chest pain or hemoptysis. The patient will be undergoing bronchoscopy tomorrow morning. OBJECTIVE: VITAL SIGNS: For the patient, which has been recorded showed the temperature noted as normal. The respiratory rate recorded as 20, heart rate 82, blood pressure 137/68. Pulse oxygen saturation recorded as 93% on room air. HEENT: Shows head was atraumatic. Eyes nonicterus. NECK: Supple. CARDIOVASCULAR: S1, S2 audible. LUNGS: Noted with crackles of the lung were noted bilaterally. There was no wheezing. The breaths are noted mildly diminished bilaterally. ABDOMEN: Soft, nontender. EXTREMITIES: Without any edema. LABORATORY DATA: CBC today: WBC count normal, hemoglobin 10, hematocrit 30.2, platelet count was normal. BMP this morning, normal BUN and creatinine. IMPRESSION: Bilateral nodular infiltration in the lung, persistent cough, acute exacerbation of bronchiectasis. PLAN OF MANAGEMENT: No changes in the plan for this patient at this time. Proceed with bronchoscopy as planned. Additional treatment changes to be done for the patient based on progression of the illness. Usual care. MAYRA ENGLISH MD CM:PNTRANS [phone] MAYRA STEVE MD 05/17/17 0929 interface
--- NOTE | ~2017-05-02 | PR ---
[place], [place] PROGRESS NOTE NAME: FRANDY UG UNIT #: [id number] ROOM: 517 DOCTOR: MAYRA FARRELL MD BIRTHDATE: [birth year] DOS: 05/04/2017 SUBJECTIVE: The patient was noted comfortable at this time, resting on the bed, still noted with some cough without any sputum expectoration completed a modified barium swallow. Denies symptoms of nausea or vomiting. The patient has not been noted any symptoms of headache. He denies symptoms of dizziness. Severe hyperglycemia has been noted somewhat decreased after reduction of corticosteroids. General weakness and fatigue was still persistent. Remaining history was reviewed and they were noted all negative. OBJECTIVE: VITAL SIGNS: For the patient, which was recorded showed the temperature noted as normal, respiratory rate 18, heart rate 77, blood pressure 122/58. The pulse oxygen saturation on room air as 92%. HEENT: Showed no new change. NECK: Supple. CARDIOVASCULAR: S1, S2 audible. LUNGS: Noted with scattered crackles in the lungs present mostly in the lower lungs. ABDOMEN: Soft, nontender. EXTREMITIES: Without any acute edema. REVIEW OF SYSTEMS: No lesions or rashes. CENTRAL NERVOUS SYSTEM: Without any focal deficit. MUSCULOSKELETAL: Without any acute deformities. LABORATORY DATA: CBC: Hemoglobin 9.1, hematocrit 28.0. WBC count normal, platelet count were normal. BMP: Glucose 322, BUN and creatinine were normal, sodium 135. IMPRESSION: The patient was currently noted with bilateral pulmonary infiltration. Modified barium swallow noted partially abnormal, possibly recurrent aspiration resulting in infection and pneumonia cannot be excluded. Other etiology of the current nodular opacity in the lungs has been also continued. The patient has been ordered the sputum for acid fast bacillus, but currently noted no sputum expectoration. Acute exacerbation of chronic obstructive pulmonary disease, resolving. PLAN OF TREATMENT: Continuation of other plan of therapy and care. Gradual reduction of the steroids will be continued. [place], [place] PROGRESS NOTE NAME: FRANDY GU UNIT #: [id number] ROOM: 517 DOCTOR: MAYRA FARRELL MD BIRTHDATE: [birth year] MAYRA AZIZ, MD CM:PNTRANS [phone] MAYRA STEVE MD 05/05/17 0804 interface
--- NOTE | ~2017-05-02 | PR ---
[place], [place] PROGRESS NOTE NAME: FRANDY GU [facility] #: [id number] UNIT #: [id number] ROOM: 517 DOCTOR: TAMEKA STEVE MD,MAYRA BIRTHDATE: [birth year] DOS: 05/07/2017 SUBJECTIVE: The patient is still noted with excessive severe chest congestion. The patient is coughing with minimal sputum expectoration. He remains ill with shortness of breath that occurs with exertion and intermittent wheezing reported. There were no symptoms of nausea, vomiting, or diarrhea. Denies symptoms of dysuria, suprapubic pain, or hematuria. Denies any acute musculoskeletal pain. Chronic arthritic pain was noted. Denies dizziness, headache, or diplopia. Remaining systems were reviewed for the patient, they were noted all negative. He is currently noted n.p.o. past midnight and bronchoscopy planned to be done today for assessment of severe cough with nodular opacities in the lungs as well. OBJECTIVE: VITAL SIGNS: Shows a normal temperature, respiratory rate of 20, heart rate 73, blood pressure 115/83 this morning. Pulse oxygen saturation on room air 92% saturation. HEENT: Showed no acute change. NECK: Supple. CARDIOVASCULAR: S1, S2 is audible. LUNGS: Crackles were noted in the lungs bilaterally. ABDOMEN: Soft, nontender. EXTREMITIES: The patient was noted without any acute edema. MUSCULOSKELETAL: The patient was noted without any focal neurologic deficit. Cranial nerves 2-12 intact. SKIN: Visible skin, no lesions or rashes. MUSCULOSKELETAL: Without any acute deformities. LABORATORY DATA: Anti-Claudia-1 antibodies were noted negative. CBC this morning, hemoglobin 9.6, hematocrit 29.0, and platelet count normal. WBC count normal. BMP, the patient's glucose 162, BUN normal, creatinine normal, sodium 135. The FAYE was negative. Aldolase was noted as normal. CHIP level normal. Workup for the vasculitis remain negative. IgE level was noted elevated at 238. IgG for the patient noted as 413 with moderate rejection IgG1 was also noted. IMPRESSION: 1. Recurrent pulmonary infection The patient's current noted finding of hypogammaglobulinemia. 2. The patient with bronchiectasis, acute exacerbation of chronic obstructive pulmonary disease. PLAN OF TREATMENT: Proceed with the bronchoscopy. Continue antibiotic. Modification of antibiotic based on the current culture results. Possible consideration for the patient for intravenous gammaglobulin. The patient would be also considered to prevent the recurrent frequent infections. Other supportive plan of management and care plan. Usual treatment. All other supportive therapy, and plan of care. Further treatment changes to be made based on the progression of the illness. [place], [place] PROGRESS NOTE NAME: FRANDY GU UNIT #: [id number] ROOM: [facility] DOCTOR: MAYRA FARRELL MD BIRTHDATE: [birth year] MAYRA ENGLISH MD CM:PNCURTIS 4 [phone] MAYRA STEVE MD 05/07/172051 interface
--- NOTE | ~2017-05-02 | CON ---
[place], [place] REPORT OF CONSULTATION NAME: FRANDY GU UNIT #: [id number] ROOM: 517 DOCTOR: TAMEKA STEVE MDMAYRA BIRTHDATE: [birth year] DOS: 05/03/2017 PULMONARY CONSULTATION, EVALUATION, AND MANAGEMENT CONSULTATION REQUESTED BY: Hospitalist service for assessment of recurrent abnormal respiratory symptoms. HISTORY OF PRESENT ILLNESS: This is a 77-year-old white male who has been treated a couple of times for the management of acute pneumonia with exacerbation of chronic obstructive pulmonary disease and bronchiectasis exacerbation. The patient has been discharged home with previous treatment. He stated that he has not been feeling better for the past several weeks and is not responding to the treatment. He has bronchoscopy done on 04/11/2017, as well. The patient denies any symptoms of chest pain and presented back to the hospital, as he was complaining of increased shortness of breath. He was noted the coughing with intermittent sputum expectoration described to be grayish to yellow at time. Denies symptoms of hemoptysis. REVIEW OF SYSTEMS: CONSTITUTIONAL SYMPTOMS: Complaining of fatigue, tiredness, but there were no symptoms of fever or chills reported. EYES: Denies any burning, redness, or tenderness. GASTROINTESTINAL SYMPTOMS: Denies dysphagia, nausea, vomiting, diarrhea, abdominal pain, hematemesis, melena, hematochezia. MUSCULOSKELETAL: The patient denies any acute deformities. SKIN: Denies any abnormal lesions or rashes. Remaining systems were reviewed. They were noted all negative. PAST MEDICAL HISTORY: The patient was known: 1. COPD. 2. Asbestos exposure. 3. Bronchiectasis. 4. Essential hypertension. 5. Uncomplicated moderate persistent bronchial asthma. 6. Type 2 diabetes mellitus. 7. Hyperlipidemia. 8. Atrial fibrillation. PAST SURGICAL HISTORY: 1. Bilateral orchiectomy. 2. Venous stripping of the lower extremities. 3. Appendectomy. 4. Bilateral total knee replacement. 5. Glaucoma. 6. Therapeutic bronchoscopy done on 04/11/2017. SOCIAL HISTORY: The patient is and lives at home. Smoking noted from the age of [age] years old, 3 packs of cigarettes per day, discontinued approximately 45 years ago. There is no history alcohol use or illicit drug [place], [place] REPORT OF CONSULTATION NAME: FRANDY GU UNIT #: [id number] ROOM: [facility] DOCTOR: TAMEKA STEVE MD,MAYRA BIRTHDATE: [birth year] use. The patient has been known with history of asbestos exposure previously. FAMILY HISTORY: Father at the age of 85 years, complication of congestive heart failure. Mother at the age of 90 years of complication of coronary artery disease. MEDICATIONS: The current medication administered as use of Lovenox for DVT prophylaxis, Protonix, Mucinex 200 mg b.i.d., Solu-Medrol 60 mg q.8 hours, Reglan, Levaquin, temazepam, and other p.r.n. medications administered. DRUG ALLERGY HISTORY: The patient noted as allergy 1. KEFLEX. 2. ADVAIR. PHYSICAL EXAMINATION: GENERAL: This is a 77-year-old white male who has been currently noted awake and alert without any acute distress at this time, resting on his bed, does not show any distress. VITAL SIGNS: Height recorded by the nursing staff of 6 feet 6 inches, weight of 226 pounds, BMI 26. The blood pressure was noted lowest in the Emergency Room on assessment as 86/54 the lowest, after the fluid 106/60, and blood pressure this morning was recorded as 103/53 at 8:00 a.m. The heart rate recorded between 81-87. The respiratory rate 16-20. Temperature noted as normal since admission. The pulse oxygen saturation on room air was recorded 94% saturation. HEENT: Examination shows head was atraumatic. Eyes were noted nonicteric. Oral mucosa moist. CARDIOVASCULAR: S1, S2 audible. LUNGS: The patient was noted with scattered crackles of the lung with decreased breath sounds and occasional wheezing. ABDOMEN: Flat, soft, nontender. EXTREMITIES: Without any acute edema. VISIBLE SKIN: No lesions or rashes. MUSCULOSKELETAL: Without any acute deformities. LABORATORY DATA: Lactic acid on admission noted 1.8. CBC was done 05/02/2017, WBC count normal, hemoglobin 12.3, hematocrit 37.5, platelet count 123,000. CMP was done yesterday, glucose 236, BUN 30, creatinine 1.41, sodium 131. The CBC was done on 05/03/2017, WBC count 4.0, hemoglobin 10.8, hematocrit 32.8, but platelet count was normal. The differential were noted 91% neutrophils. The BMP, glucose 364, BUN 33, creatinine 1.46, sodium 134. Acid fast, previous bronchial washing on 03/22/2017, as noted no isolation of acid fast bacillus. The bedside blood glucose later on today is 615. The review of the radiology data, the patient had a chest x-ray that was done shows nonspecific interstitial marking increased in the lungs bilaterally. CT scan of the chest was done yesterday after the hospitalization noted with patchy area of infiltration noted in the lungs bilaterally with findings of tree-in-bud appearance in both lungs as well. Certainly, these findings are noted new for this patient, I compared the CT scan of the chest that was assessed from 04/11/2017. Moderate emphysema changes were also noted. Changes of bronchiectasis was noted in the lower lungs. [place], [place] REPORT OF CONSULTATION NAME: FRANDY GU UNIT #: [id number] ROOM: [facility] DOCTOR: MAYRA FARRELL MD BIRTHDATE: [birth year] IMPRESSION: 1. The patient who has been currently admitted to the hospital with recurrence of respiratory symptoms with incomplete resolution previously from last admission and has been noted ongoing illness since December 2016 as per patient. The current nodular opacity was suggestive of possibility of a chronic infection with superimposed acute infection cannot be completely excluded. Possible differential diagnosis of current finding to be considered as possibility of Mycobacterium avium intracellulare complex infection; however, the bronchial washing culture, which was done on 03/22/2017, was noted without any isolation of those organisms and the culture results were noted as negative. 2. The patient with history of bronchiectasis from chronic infection also noted mostly in the lower lungs. Other atypical abnormality with chronic infection certainly to be considered including for fungal infections. Rule out any recurrent aspiration as well. 3. Hypertension related to recurrent infection and possible early sepsis cannot be excluded. 4. Severely uncontrolled hyperglycemia related to use of the corticosteroids with history of diabetes mellitus. PLAN OF MANAGEMENT: The workup for interstitial lung disease connective tissue disorders ordered. TB Gold test was ordered. Repeat sputum for acid fast smear and culture for consecutive 3 days would be taken. In the meantime, continue current antibiotics without any changes. The patient was also noted severely uncontrolled hyperglycemia with history of diabetes mellitus with use of high dose of steroids, Solu-Medrol 60 mg q.8 hours. The dose has been decreased to 40 mg b.i.d. dosing as well to improve the hyperglycemia and also noted current physical assessment with minimal wheezing. Monitoring of the labs of the patient closely. Supportive therapy, other plan of management and care plan. Routine sputum for Gram culture was ordered. No change in antibiotic at this time will be recommended. The patient stated that he has an appointment with some physician in [place] to be seen for the respiratory issues. However, he did not give me any clear answer who is that physician he will be seeing. In the meantime, all other supportive therapy, plan of management to be continued as in progress including bronchodilators, oxygen supplementation, and other plan of care. Thank you for allowing me to participate in care of this patient. [place], [place] REPORT OF CONSULTATION NAME: FRANDY GU UNIT #: [id number] ROOM: [facility] DOCTOR: MAYRA FARRELL MD BIRTHDATE: [birth year] MAYRA ENGLISH MD CM:CONSTR:REPORT OF CONSULTATION 1240 05/04/17 0014 interface
[2017-05-02 14:30] LABS: BASO % 0.3 % (0.0-1.0); EOS # 0.1 10*3/uL (0.0-0.4); EOS % 1.2 % (1.0-4.0); HEMATOCRIT 37.5 % (42.0-52.0); HEMOGLOBIN 12.3 g/dl (14.0-18.0); LYMPH # 0.9 10*3/uL (1.3-4.4); LYMPH % 12.9 % (27.0-41.0); MEAN CELL VOLUME 89.1 fl (80.0-94.0); MEAN CORPUSCULAR HGB 29.2 pg (27.0-31.0); MEAN CORPUSCULAR HGB CONC 32.8 g/dl (33.0-37.0); MEAN PLATELET VOLUME 9.5 fl (9.6-12.3); MONO # 0.8 10*3/uL (0.1-1.0); MONO % 11.4 % (3.0-9.0); NEUT % 73.3 % (47.0-73.0); PLATELET COUNT AUTOMATED 223 10*3/uL (130-400); RED BLOOD COUNT 4.21 10*6/uL (4.50-5.90); RED CELL DISTRI WIDTH 14.6 % (0-14.5); WHITE BLOOD COUNT 6.8 10*3/uL (4.8-10.8)
[2017-05-02] MEDS ORDERED: AMIODARONE HYD200 MG PO (14:38)
[2017-05-02 14:52] LABS: ALBUMIN 2.8 gm/dl (3.1-4.5); ALKALINE PHOSPHATASE 60 U/L (45-117); BUN 30 mg/dl (7-24); CHLORIDE 96 mmol/L (98-107); CREATININE 1.41 mg/dL (0.70-1.30); POTASSIUM 4.6 mmol/L (3.5-5.1); SGOT/AST 11 IU/L (3-35); SGPT/ALT 21 U/L (12-78); SODIUM 131 mmol/L (136-145); TOTAL PROTEIN 7.4 gm/dL (6.4-8.2)
[2017-05-02 14:53] LABS: TROPONIN I < 0.015 ng/ml (<0.045)
[2017-05-03] VITALS: BP 102/45
[2017-05-03 06:00] LABS: HEMATOCRIT 32.2 % (42.0-52.0); HEMOGLOBIN 10.4 g/dl (14.0-18.0); MEAN CELL VOLUME 91.2 fl (80.0-94.0); MEAN CORPUSCULAR HGB 29.5 pg (27.0-31.0); MEAN CORPUSCULAR HGB CONC 32.3 g/dl (33.0-37.0); MEAN PLATELET VOLUME 9.6 fl (9.6-12.3); PLATELET COUNT AUTOMATED 202 10*3/uL (130-400); RED BLOOD COUNT 3.53 10*6/uL (4.50-5.90); RED CELL DISTRI WIDTH 14.6 % (0-14.5)
[2017-05-03 06:16] LABS: ACT PARTIAL THROMBO TIME 25.8 SECONDS (20.8-31.5)
[2017-05-03 06:38] LABS: CREATININE 1.48 mg/dL (0.70-1.30); PHOSPHOROUS 3.8 mg/dL (2.5-4.9); POTASSIUM 4.7 mmol/L (3.5-5.1)
[2017-05-03 06:46] LABS: PLATELET SUFFICIENCY NORMAL (NORMAL); TOTAL CELLS COUNTED 100 #CELLS
[2017-05-03 06:47] LABS: ROULEAUX SLIGHT
[2017-05-03 08:00] VITALS: BP 103/53
[2017-05-03 12:00] VITALS: BP 116/58
[2017-05-03 16:00] VITALS: BP 110/53
[2017-05-03 20:00] VITALS: BP 115/56
[2017-05-04] VITALS: BP 101/56
[2017-05-04 06:54] LABS: HEMATOCRIT 28.2 % (42.0-52.0); HEMOGLOBIN 9.2 g/dl (14.0-18.0); LYMPH # 0.4 10*3/uL (1.3-4.4); LYMPH % 4.9 % (27.0-41.0); MEAN CORPUSCULAR HGB 29.7 pg (27.0-31.0); MEAN CORPUSCULAR HGB CONC 32.6 g/dl (33.0-37.0); MEAN PLATELET VOLUME 9.9 fl (9.6-12.3); MONO # 0.4 10*3/uL (0.1-1.0); MONO % 4.6 % (3.0-9.0); NEUT % 89.2 % (47.0-73.0); PLATELET COUNT AUTOMATED 218 10*3/uL (130-400); RED CELL DISTRI WIDTH 14.7 % (0-14.5)
[2017-05-04 07:06] LABS: CHLORIDE 103 mmol/L (98-107); CREATININE 1.16 mg/dL (0.70-1.30); POTASSIUM 4.5 mmol/L (3.5-5.1); SODIUM 135 mmol/L (136-145)
[2017-05-04 07:22] LABS: BUN 23 mg/dl (7-24)
[2017-05-04 08:00] VITALS: BP 122/58
[2017-05-04 11:04] LABS: IMMUNOGLOBULIN M, QNT 77 mg/dL (15-143)
[2017-05-04 12:00] VITALS: BP 117/56
[2017-05-04 13:02] LABS: ALDOLASE 002030 2.1 U/L (3.3-10.3); ANGIOTENSIN-CONVERTING ENZYME <3 U/L (14-82)
[2017-05-04 16:00] VITALS: BP 118/57
[2017-05-04 18:02] LABS: ATYPICAL PANCA <1:20 titer (Neg:<1:20); CYTOPLASMIC (C-ANCA) <1:20 titer (Neg:<1:20)
[2017-05-04 20:00] VITALS: BP 135/68
[2017-05-05] VITALS: BP 123/62
[2017-05-05 06:23] LABS: HEMATOCRIT 28.9 % (42.0-52.0); HEMOGLOBIN 9.2 g/dl (14.0-18.0); MEAN CELL VOLUME 91.5 fl (80.0-94.0); MEAN CORPUSCULAR HGB 29.1 pg (27.0-31.0); MEAN CORPUSCULAR HGB CONC 31.8 g/dl (33.0-37.0); MEAN PLATELET VOLUME 9.9 fl (9.6-12.3); NUCLEATED RED BLOOD CELL 0.3 % (0.0-0.0); PLATELET COUNT AUTOMATED 233 10*3/uL (130-400); RED BLOOD COUNT 3.16 10*6/uL (4.50-5.90); RED CELL DISTRI WIDTH 14.8 % (0-14.5)
[2017-05-05 06:50] LABS: TOTAL CELLS COUNTED 100 #CELLS
[2017-05-05 06:51] LABS: PLATELET SUFFICIENCY NORMAL (NORMAL); POLYCHROMASIA SLIGHT
[2017-05-05 06:54] LABS: BUN 25 mg/dl (7-24); CHLORIDE 104 mmol/L (98-107); CREATININE 0.97 mg/dL (0.70-1.30); POTASSIUM 4.6 mmol/L (3.5-5.1); SODIUM 138 mmol/L (136-145)
[2017-05-05 08:00] VITALS: BP 150/71
[2017-05-05 09:05] LABS: IGG SUBCLASS 1 195 mg/dL (248-810); IGG SUBCLASS 2 178 mg/dL (130-555); IGG SUBCLASS 3 29 mg/dL (15-102); IGG SUBCLASS 4 26 mg/dL (2-96); IMMUNOGLOBULIN G, QNT 413 mg/dL (700-1600)
[2017-05-05 11:40] LABS: ACT PARTIAL THROMBO TIME 22.6 SECONDS (20.8-31.5)
[2017-05-05 12:00] VITALS: BP 131/71
[2017-05-05 16:00] VITALS: BP 137/67
[2017-05-05 20:00] VITALS: BP 120/64
[2017-05-06] VITALS: BP 119/51
[2017-05-06 06:30] LABS: HEMATOCRIT 30.2 % (42.0-52.0); MEAN CELL VOLUME 91.8 fl (80.0-94.0); MEAN CORPUSCULAR HGB 30.4 pg (27.0-31.0); MEAN CORPUSCULAR HGB CONC 33.1 g/dl (33.0-37.0); MEAN PLATELET VOLUME 9.7 fl (9.6-12.3); NUCLEATED RED BLOOD CELL 0.1 10*3/uL (0.0-0.0); NUCLEATED RED BLOOD CELL 1.4 % (0.0-0.0); PLATELET COUNT AUTOMATED 256 10*3/uL (130-400); RED BLOOD COUNT 3.29 10*6/uL (4.50-5.90); RED CELL DISTRI WIDTH 15.1 % (0-14.5); WHITE BLOOD COUNT 9.5 10*3/uL (4.8-10.8)
[2017-05-06 06:59] LABS: BUN 24 mg/dl (7-24); CHLORIDE 102 mmol/L (98-107); CREATININE 0.96 mg/dL (0.70-1.30); POTASSIUM 4.1 mmol/L (3.5-5.1); SODIUM 137 mmol/L (136-145)
[2017-05-06 07:17] LABS: PLATELET SUFFICIENCY NORMAL (NORMAL); POLYCHROMASIA SLIGHT; TOTAL CELLS COUNTED 100 #CELLS
[2017-05-06 08:00] VITALS: BP 140/71
[2017-05-06 12:00] VITALS: BP 137/68
[2017-05-06 16:00] VITALS: BP 133/62; BP 140/60
[2017-05-06 20:00] VITALS: BP 145/75
[2017-05-07] VITALS (9 sets, daily range): BP systolic 128–159; BP diastolic 63–83
[2017-05-07 06:07] LABS: IMMUNOGLOBULIN IgE 002170 238 IU/mL (0-100)
[2017-05-07 06:15] LABS: HEMOGLOBIN 9.6 g/dl (14.0-18.0); MEAN CELL VOLUME 89.8 fl (80.0-94.0); MEAN CORPUSCULAR HGB 29.7 pg (27.0-31.0); MEAN CORPUSCULAR HGB CONC 33.1 g/dl (33.0-37.0); MEAN PLATELET VOLUME 9.3 fl (9.6-12.3); NUCLEATED RED BLOOD CELL 0.1 10*3/uL (0.0-0.0); NUCLEATED RED BLOOD CELL 1.2 % (0.0-0.0); PLATELET COUNT AUTOMATED 247 10*3/uL (130-400); RED BLOOD COUNT 3.23 10*6/uL (4.50-5.90); RED CELL DISTRI WIDTH 14.7 % (0-14.5); WHITE BLOOD COUNT 8.2 10*3/uL (4.8-10.8)
[2017-05-07 06:20] LABS: BUN 22 mg/dl (7-24); CHLORIDE 100 mmol/L (98-107); CREATININE 0.93 mg/dL (0.70-1.30); SODIUM 135 mmol/L (136-145)
[2017-05-07 06:49] LABS: PLATELET SUFFICIENCY NORMAL (NORMAL); POLYCHROMASIA SLIGHT; TOTAL CELLS COUNTED 100 #CELLS
[2017-05-07 14:03] LABS: MITOGEN VALUE 0.03 IU/mL (.); TB Ag VALUE 0.02 IU/mL (.); TB GOLD Indeterminate (Negative)
[2017-05-08] VITALS: BP 136/66
[2017-05-08 06:28] LABS: HEMATOCRIT 30.7 % (42.0-52.0); HEMOGLOBIN 9.9 g/dl (14.0-18.0); MEAN CELL VOLUME 90.8 fl (80.0-94.0); MEAN CORPUSCULAR HGB 29.3 pg (27.0-31.0); MEAN CORPUSCULAR HGB CONC 32.2 g/dl (33.0-37.0); MEAN PLATELET VOLUME 9.2 fl (9.6-12.3); NUCLEATED RED BLOOD CELL 0.1 10*3/uL (0.0-0.0); PLATELET COUNT AUTOMATED 255 10*3/uL (130-400); RED BLOOD COUNT 3.38 10*6/uL (4.50-5.90); RED CELL DISTRI WIDTH 14.8 % (0-14.5); WHITE BLOOD COUNT 8.2 10*3/uL (4.8-10.8)
[2017-05-08 06:35] LABS: BUN 21 mg/dl (7-24); CHLORIDE 103 mmol/L (98-107); CREATININE 1.06 mg/dL (0.70-1.30); SODIUM 139 mmol/L (136-145)
[2017-05-08 07:19] LABS: ATYPICAL LYMPHS 1 % (0-0); TOTAL CELLS COUNTED 100 #CELLS
[2017-05-08 07:20] LABS: PLATELET SUFFICIENCY NORMAL (NORMAL); POLYCHROMASIA SLIGHT
[2017-05-08 08:00] VITALS: BP 162/68
[2017-05-08 12:00] VITALS: BP 120/61
[2017-05-08 16:00] VITALS: BP 116/64
[2017-05-08 16:08] LABS: ACID FAST SPEC PROCESSING Concentration (.)
[2017-05-08 20:00] VITALS: BP 130/74
[2017-05-09] VITALS: BP 149/71
[2017-05-09 08:00] VITALS: BP 132/62
[2017-05-09] MEDS ORDERED: PREDNISONE10 MG PO (11:27)
[2017-05-09] MEDS ORDERED: LEVOFLOXACIN500 MG PO (11:27)
[2017-05-09] MEDS ORDERED: DOXYCYCLINE MO100 M1 PO (11:27)
[2017-05-09 12:00] VITALS: BP 126/66
[2017-05-09 16:00] VITALS: BP 133/65
[2017-05-09 20:00] VITALS: BP 141/65
[2017-05-10] VITALS: BP 134/66
[2017-05-10 08:00] VITALS: BP 134/68
[2017-05-10 12:00] VITALS: BP 136/70
[2017-05-10 16:00] VITALS: BP 145/68
[2017-05-10] MEDS ORDERED: LEVAQUIN750 M1 PO (16:55)
[2017-05-10] MEDS ORDERED: DOXYCYCLINE100 M3 PO (16:55)
[2017-05-10] MEDS ORDERED: LEVEMIR100 UNIT/1 SC (17:08)
== END 2017-05-10 18:03 | disposition home health service (06) | DRG 871 ==
LOC: ED 13:40 → EDHOLD 15:58 → 5E 15:58
PROVIDERS: Emergency Medicine; Internal Medicine Critical Care Medicine; Internal Medicine Nephrology
PROC: BD11YZZ Fluoroscopy of Esophagus using Other Contrast (ICD-10-PCS; principal; 2017-05-03)
PROC: 0BC78ZZ Extirpation of Matter from Left Main Bronchus, Via Natural or Artificial Opening Endoscopic (ICD-10-PCS; 2017-05-07)
PROC: 0BC58ZZ Extirpation of Matter from Right Middle Lobe Bronchus, Via Natural or Artificial Opening Endoscopic (ICD-10-PCS; 2017-05-07)
PROC: 0BC38ZZ Extirpation of Matter from Right Main Bronchus, Via Natural or Artificial Opening Endoscopic (ICD-10-PCS; 2017-05-07)
PROC: 0BC88ZZ Extirpation of Matter from Left Upper Lobe Bronchus, Via Natural or Artificial Opening Endoscopic (ICD-10-PCS; 2017-05-07)
PROC: 0BCB8ZZ Extirpation of Matter from Left Lower Lobe Bronchus, Via Natural or Artificial Opening Endoscopic (ICD-10-PCS; 2017-05-07)
PROC: 0BC98ZZ Extirpation of Matter from Lingula Bronchus, Via Natural or Artificial Opening Endoscopic (ICD-10-PCS; 2017-05-07)
PROC: 0BC48ZZ Extirpation of Matter from Right Upper Lobe Bronchus, Via Natural or Artificial Opening Endoscopic (ICD-10-PCS; 2017-05-07)
PROC: 0BC68ZZ Extirpation of Matter from Right Lower Lobe Bronchus, Via Natural or Artificial Opening Endoscopic (ICD-10-PCS; 2017-05-07)
PROC: 0BC28ZZ Extirpation of Matter from Carina, Via Natural or Artificial Opening Endoscopic (ICD-10-PCS; 2017-05-07)
PROC: 0BC18ZZ Extirpation of Matter from Trachea, Via Natural or Artificial Opening Endoscopic (ICD-10-PCS; 2017-05-07)
DX: A41.9 Sepsis, unspecified organism (principal); J18.9 Pneumonia, unspecified organism; E44.0 Moderate protein-calorie malnutrition; T17.590A Other foreign object in bronchus causing asphyxiation, initial encounter; B37.89 Other sites of candidiasis; D80.1 Nonfamilial hypogammaglobulinemia; I95.9 Hypotension, unspecified; E87.1 Hypo-osmolality and hyponatremia; J44.0 Chronic obstructive pulmonary disease with (acute) lower respiratory infection; J44.1 Chronic obstructive pulmonary disease with (acute) exacerbation; E11.65 Type 2 diabetes mellitus with hyperglycemia; E87.8 Other disorders of electrolyte and fluid balance, not elsewhere classified; I48.91 Unspecified atrial fibrillation; J84.10 Pulmonary fibrosis, unspecified; Z96.653 Presence of artificial knee joint, bilateral; J40 Bronchitis, not specified as acute or chronic; T38.0X5A Adverse effect of glucocorticoids and synthetic analogues, initial encounter; R13.10 Dysphagia, unspecified; X58.XXXA Exposure to other specified factors, initial encounter; D64.9 Anemia, unspecified; E66.3 Overweight; I10 Essential (primary) hypertension; E78.5 Hyperlipidemia, unspecified; E55.9 Vitamin D deficiency, unspecified; Z88.1 Allergy status to other antibiotic agents; Z88.8 Allergy status to other drugs, medicaments and biological substances; Z79.82 Long term (current) use of aspirin; Z79.899 Other long term (current) drug therapy; Z90.49 Acquired absence of other specified parts of digestive tract; Z87.891 Personal history of nicotine dependence; Z82.5 Family history of asthma and other chronic lower respiratory diseases; Z82.49 Family history of ischemic heart disease and other diseases of the circulatory system; Z79.51 Long term (current) use of inhaled steroids; Z79.84 Long term (current) use of oral hypoglycemic drugs; Y93.89 Activity, other specified; Y92.89 Other specified places as the place of occurrence of the external cause; Y99.8 Other external cause status; Z68.26 Body mass index [BMI] 26.0-26.9, adult

== ENCOUNTER → 2017-06-06 | Outpatient (CLI) | payer MEDICARE ==
[~2017-06-06] MED LIST changes: +AMIODARONE HYD200 MG PO; +DOXYCYCLINE MO100 M1 PO; +LEVEMIR100 UNIT/1 SC; +LEVOFLOXACIN500 MG PO
== END | disposition home or self-care (01) ==
LOC: CP 12:22
DX: J44.9 Chronic obstructive pulmonary disease, unspecified (principal)

== ENCOUNTER → 2018-02-25 | Outpatient (CLI) | payer MEDICARE ==
[~2018-02-25] MED LIST changes: +LOPRESSOR100 M1 PO; -LOPRESSOR50 MG PO; +PERCOCET 7.5 MG-325 PO; +ZOSYN 3.373.375 GM/5 IV
== END | disposition home or self-care (01) ==
LOC: RAD 12:22
DX: J43.2 Centrilobular emphysema (principal); J98.4 Other disorders of lung; E11.9 Type 2 diabetes mellitus without complications

== ENCOUNTER 2018-06-12 11:19 | Inpatient (IN) | payer MEDICARE ==
[~2018-06-12] VITALS: Ht 198.1 cm; Wt 89.9 kg
[2018-06-12] VITALS (11 sets, daily range): BP systolic 68–146; BP diastolic 38–80
--- NOTE | ~2018-06-12 | EKG ---
[place], [place] ELECTROCARDIOGRAM REPORT NAME: FRANDY GU UNIT #: [id number] ROOM: 516 DOCTOR: GIN DRAFT REPORT BIRTHDATE: [birth year] [facility] Test Date: 2018-06-12 Test Time: 15:15:55 Pat Name: FRANDY GU Department: Room: [facility] 1 Gender: M Manager Traffic: Jono Flynn : 1940 Requested By: LOI BAIRD Order Number: [id number] Reading MD: Dean Serrato MD Measurements Intervals [place] Rate: 59 P: 101 SC: 199 QRS: 56 QRSD: 94 T: 48 QT: 486 QTc: 482 Interpretive Statements Sinus rhythm Borderline prolonged QT interval Compared to ECG 04/24/2018 17:04:38 ST (T wave) deviation no longer present Electronically Signed On 06-14-2018 11:42:14 PDT by Dean Serrato MD CM:EKGRPT:ELECTROCARDIOGRAM REPORT 1515 1142 LOI BAIRD EPIPHANY DRAFT REPORT LOI BAIRD
[~2018-06-12 11:19] MED LIST changes: -PERCOCET 7.5 MG-325 PO
--- NOTE | 2018-06-12 12:41 | NUR ---
PT STATES HAS HAD SOME RELIEF OF PAIN.
--- NOTE | 2018-06-12 12:45 | NUR ---
PT STATES PAIN IS 8/10 WITH LITTLE CHANGE FROM ARRIVAL VVS PT A&O AIRWAY PATIENT
--- NOTE | 2018-06-12 13:54 | NUR ---
AT 1335 HRS PT PLACED IN HIGH FOWLERS POSITION FOR SPLINTNG PT BECAME LIGHT HEADED AND DIZZY PT BECAME HYPOTENSIVE BRADYCARDIC PALE PT PLACEC ON PRINCIPAL SYSTEM SOFTWARE ENGINEER FLUIDS ORDERED AND RUNNING PT PLACED IN LOW FOWLERS POSITION PT CANNOT TOLERATED SUPONE DUE TO FRACTURE RIGHT ARM PT REMAINS ALERT AND ORIENTED
--- NOTE | 2018-06-12 14:59 | NUR ---
A 78, admitted to 5E, under the services of FLOYD Henderson DO with a diagnosis of HUMERUS FX. Chief complaint is FELL AT HOME. Patient arrived via stretcher from ER. Monitor applied. Initial assessment completed. Vital signs taken and recorded. FLOYD HENDERSON DO notified of admission to the unit. Orders received. See assessment for past medical history, medications and allergies. Patient and/or family oriented to unit. [address] visitation policy reviewed. Clothing/patient valuable form completed. JOSE J FOURNIER
--- NOTE | 2018-06-12 15:22 | NUR ---
STATES THAT DR HARKINS SAID SHE WILL SEE PT ON THE FLOOR.
--- NOTE | 2018-06-12 15:56 | NUR ---
MEDICATED WITH IV DILAUDID ORDERED PER PT REQUEST FOR C/O PAIN TO R ARM RATED 5/10.
[2018-06-12 16:02] LABS: BASO % 0.3 % (0.0-1.0); EOS # 0.2 10*3/uL (0.0-0.4); EOS % 1.3 % (1.0-4.0); HEMATOCRIT 36.5 % (42.0-52.0); HEMOGLOBIN 11.1 g/dl (14.0-18.0); LYMPH % 7.5 % (27.0-41.0); MEAN CORPUSCULAR HGB 27.1 pg (27.0-31.0); MEAN CORPUSCULAR HGB CONC 30.4 g/dl (33.0-37.0); MEAN PLATELET VOLUME 9.4 fl (9.6-12.3); MONO # 0.8 10*3/uL (0.1-1.0); MONO % 6.1 % (3.0-9.0); NEUT # 11.4 10*3/uL (2.3-7.9); NEUT % 84.4 % (47.0-73.0); PLATELET COUNT AUTOMATED 360 10*3/uL (130-400); RED CELL DISTRI WIDTH 16.1 % (0-14.5); WHITE BLOOD COUNT 13.5 10*3/uL (4.8-10.8)
[2018-06-12 16:31] LABS: ALBUMIN 2.9 gm/dl (3.1-4.5); ALKALINE PHOSPHATASE 65 U/L (45-117); BUN 13 mg/dl (7-24); CHLORIDE 105 mmol/L (98-107); POTASSIUM 4.4 mmol/L (3.5-5.1); SGOT/AST 17 IU/L (3-35); SGPT/ALT 18 U/L (12-78); SODIUM 139 mmol/L (136-145); TOTAL PROTEIN 7.5 gm/dL (6.4-8.2)
--- NOTE | 2018-06-12 16:38 | NUR ---
DANYEL MARTINEZ CNP NOTIFIED THAT MEDICATION RECONCILIATION IS COMPLETE FOR HER REVIEW.
--- NOTE | 2018-06-12 18:36 | NUR ---
PT STATES PAIN IS "PRETTY GOOD NOW". PRN EFFECTIVE AT THIS TIME.
--- NOTE | 2018-06-12 21:50 | NUR ---
MEDICATED WITH DILAUDID PER PRN ORDER FOR C/O RIGHT ARM PAIN.
[2018-06-13] VITALS: BP 94/57
[2018-06-13 06:43] LABS: ALBUMIN 2.4 gm/dl (3.1-4.5); ALKALINE PHOSPHATASE 63 U/L (45-117); BUN 13 mg/dl (7-24); CHLORIDE 105 mmol/L (98-107); CREATININE 1.02 mg/dL (0.70-1.30); PHOSPHOROUS 3.2 mg/dL (2.5-4.9); POTASSIUM 4.1 mmol/L (3.5-5.1); SGOT/AST 11 IU/L (3-35); SGPT/ALT 15 U/L (12-78); SODIUM 138 mmol/L (136-145); TOTAL PROTEIN 6.6 gm/dL (6.4-8.2)
[2018-06-13 06:46] LABS: BASO % 0.3 % (0.0-1.0); EOS # 0.3 10*3/uL (0.0-0.4); EOS % 3.1 % (1.0-4.0); HEMATOCRIT 31.4 % (42.0-52.0); HEMOGLOBIN 9.6 g/dl (14.0-18.0); LYMPH # 1.2 10*3/uL (1.3-4.4); LYMPH % 13.9 % (27.0-41.0); MEAN CORPUSCULAR HGB 27.2 pg (27.0-31.0); MEAN CORPUSCULAR HGB CONC 30.6 g/dl (33.0-37.0); MEAN PLATELET VOLUME 10.1 fl (9.6-12.3); MONO # 0.9 10*3/uL (0.1-1.0); MONO % 10.3 % (3.0-9.0); NEUT # 6.4 10*3/uL (2.3-7.9); NEUT % 72.1 % (47.0-73.0); PLATELET COUNT AUTOMATED 320 10*3/uL (130-400); RED BLOOD COUNT 3.53 10*6/uL (4.50-5.90); RED CELL DISTRI WIDTH 16.3 % (0-14.5); WHITE BLOOD COUNT 8.9 10*3/uL (4.8-10.8)
--- NOTE | 2018-06-13 07:57 | NUR ---
Medicated with tylenol per prn order for c/o pain to rt arm. Pt states that percocet does not work and tylenol helps more, states it always has. Immobilizer intact.
[2018-06-13 08:00] VITALS: BP 108/50
--- NOTE | 2018-06-13 09:00 | NUR ---
States that tylenol effective.
--- NOTE | 2018-06-13 10:38 | NUR ---
Occupational Therapy evaluation completed on 5 with full eval to follow. Precautions include fall risk, history of fall with right proximal humeral comminuted diaphyseal fracture in sling ( at all times) x 7-10 days then humeral brace. Brace has been ordered by orthopedics, moderate complexity level 43819 via chart review, testing and evaluation. OTR provided AROM right hand/wrist w/education and informed patient sling use 7-10 days then humeral brace which has been ordered. Patient admits he was not aware of the brace. Patient is not a surgical candidate per ortho note. Recommend OT per POC and home with and home health, PT,OT,SENIOR ACCOUNTS PAYABLE CLERK, SN. Thank you for this referral. Lara Dias OTR/Stacy
--- NOTE | 2018-06-13 10:40 | NUR ---
PHYSICAL THERAPY Patient evaluated on 5, full evaluation to follow. Continue with PT as per plan of care with fall, NEWLY FRACTURED RIGHT HUMERUS WITH SLING and acute debility precautions. Will require SNF, refusing. If home, recommed home health RN, PT, OT and aides. PAtient is moderate complexity via chart review, tests and evaluation: 56420. Thank you for this referral. Lacy Schuler,PT
[2018-06-13 12:00] VITALS: BP 100/51
--- NOTE | 2018-06-13 13:43 | NUR ---
Sales Project Engineer in to talk to patient. Patient states lives at HOME with . There are NO steps in the home. Physician: MONE WILLINGHAM Pharmacy: [email or web address] Home health services: NONE Patient's level of ADLs: MINIMAL ASSIST Patient has working utilities: YES DME: NONE Follow-up physician's appointment after d/c: WILL BE MADE BY HOSPITALIST NURSE DIRECTOR ON DISCHARGE Does patient want to access PORTAL?: NO Discharge plan PT LIVES AT HOME WITH HIS IN A ONE STORY HOUSE. STATES HE IS INDEPENDENT IN HIS CARE AND WANTS TO RETURN HOME ON DISCHARGE. TALKED WITH PT ABOUT HOME HEALTH BUT PT DECLINES AT THIS TIME. WILL CONTINUE TO FOLLOW. PT STATES HE WILL HAVE A RIDE HOME ON DISCHARGE. . ALTAGRACIA WILLS
--- NOTE | 2018-06-13 13:46 | NUR ---
PHYSICAL THERAPY informed consent given, pt identified by name and . pt presented supine in bed.In supine educated on log roll technique, sequencing was not correct but pt did sit up from supine SBA. STS and stand to sit multiple times CGA. staggered stance each foot in front 30 sec x2 SBA pt able to correct self with LOB. Walked 60ft L hand on side rail CGA. Sit to supine SBA. Ended treatment pt supine in bed, call light and belongings in reach bed alarm on. 1:1 treatment with STEAM TUNNEL FEEDER 15min. BENJY MONTOYA STEAM TUNNEL FEEDER
[2018-06-13 16:00] VITALS: BP 108/53
--- NOTE | 2018-06-13 19:52 | NUR ---
PATIENT HAVING PAIN IN RT ARM, RATES 8/10. TYLENOL GIVEN. PATIENT ALSO STATED THAT DR. HARKINS HAD TAKEN OFF THE WRAP/SPLINT AND NEVER REPLACED IT. PATIENT ONLY HAS SLING ON. WILL MONITOR AND REASSESS.
[2018-06-13 20:00] VITALS: BP 126/64
--- NOTE | 2018-06-13 21:00 | NUR ---
TYLENOL NOT EFFECTIVE FOR PAIN.
--- NOTE | 2018-06-13 23:50 | NUR ---
PATIENT HAVING PAIN IN RT ARM AND IS UNABLE TO SLEEP. I OFFERED A PERCOCET, AND PATIENT STATED THAT WILL NOT HELP. HE STATED THAT WHAT HE GOT LAST NIGHT HELPED WITH THE PAIN AND HELPED HIM SLEEP. PATIENT RECEIVED DILAUDID LAST NIGHT, CONTACTED DR. CLIFFORD AND RECEIVED NEW ORDER FOR ON TIME DOSE.
[2018-06-14] VITALS: BP 113/58
--- NOTE | 2018-06-14 00:13 | NUR ---
DILAUDID GIVEN FOR PAIN IN RT ARM. WILL MONITOR AND REASSESS.
--- NOTE | 2018-06-14 00:58 | NUR ---
24 HR chart check completed.
--- NOTE | 2018-06-14 05:25 | NUR ---
PATIENT STATED THE DILAUDID WAS EFFECTIVE FOR PAIN AND PATIENT WAS ABLE TO SLEEP.
[2018-06-14 06:40] LABS: BASO % 0.4 % (0.0-1.0); EOS # 0.3 10*3/uL (0.0-0.4); EOS % 3.2 % (1.0-4.0); HEMATOCRIT 32.4 % (42.0-52.0); HEMOGLOBIN 9.8 g/dl (14.0-18.0); LYMPH # 1.5 10*3/uL (1.3-4.4); LYMPH % 15.6 % (27.0-41.0); MEAN CELL VOLUME 89.8 fl (80.0-94.0); MEAN CORPUSCULAR HGB 27.1 pg (27.0-31.0); MEAN CORPUSCULAR HGB CONC 30.2 g/dl (33.0-37.0); MEAN PLATELET VOLUME 9.9 fl (9.6-12.3); MONO # 1.2 10*3/uL (0.1-1.0); MONO % 12.4 % (3.0-9.0); NEUT # 6.3 10*3/uL (2.3-7.9); NEUT % 68.2 % (47.0-73.0); PLATELET COUNT AUTOMATED 302 10*3/uL (130-400); RED BLOOD COUNT 3.61 10*6/uL (4.50-5.90); RED CELL DISTRI WIDTH 16.5 % (0-14.5); WHITE BLOOD COUNT 9.3 10*3/uL (4.8-10.8)
[2018-06-14 07:02] LABS: BUN 17 mg/dl (7-24); CHLORIDE 105 mmol/L (98-107); CREATININE 1.08 mg/dL (0.70-1.30); POTASSIUM 4.1 mmol/L (3.5-5.1); SODIUM 139 mmol/L (136-145)
[2018-06-14 08:00] VITALS: BP 118/54
--- NOTE | 2018-06-14 10:30 | NUR ---
PT REQUESTED AND RECIEVED PRN TYLENOL FOR SHOULDER PAIN. WILL MONITOR FOR EFFECTIVENESS.
--- NOTE | 2018-06-14 10:50 | NUR ---
OT NOTE PATIENT SEEN 1:1 OT THIS DATE. PATIENT IDENTIFIED BY NAME AND DATE OF . PATIENT COMPLETED 37 MINUTES OF OT THIS DATE. COMPLETED SUPINE TO SIT EOB MIN A WITH INCREASE TIME. COMPLETED GROOMING TASK SEATED EOB MAX A THIS DATE WITH EDUCAITON ONE HAND TECHNIQUES. COMPLETED UB DRESSING NEW GOWN MAX A. PATIENT COMPLETED SIT BALANCE EOB APPROX 20 MINUTES THIS DATE WITH NO LOSS BALANCE SBA. COMPLETED SIT TO STAND FROM BED MIN A X 2 TRIALS WITH STATIC STAND TOLERANCE APPROX 30 SECONDS WITH C/O OF FATIGUE FOR INCREASE STAND TOLERANCE DURING ADL TASKS THIS DATE. COMPLETED SIT TO SUPINE BED MIN A. PATIENT IN BED WITH NO CONCERNS AND CALL LIGHT WITHIN REACH THIS DATE. CONTINUE TOWARDS PLAN OF CARE. VIPIN KINNEY/Stacy
--- NOTE | 2018-06-14 11:05 | NUR ---
PHYSICAL THERAPY Patient was resting supine in bed this am upon therapist arrival and seen 1:1 for therapy visit. Patient reports very little R shoulder pain / discomfort and presents with R UE sling. Patient transfers CGA supine to sit and sit to stand while needing a few seconds to collect himself once standing. Patient ambulates HEAD AND NECK SURGEON/CGA, 50'x 2, demonstrating very slow, steady [place] and bouts of unsteady balance during all turns secondary to increased trunk rigidity. Patient returned to EOB sit with c/o of generalized weakness and remained EOB with call light, tray table and telephone. Will continue per POC as tolerated, total treatment time 17 minutes. Harsh Joy, [employer]NADI[employer] B[employer]ON TIER
--- NOTE | 2018-06-14 11:56 | NUR ---
PT STATES RELIEF FROM PREVIOUS TYLENOL.
[2018-06-14 12:00] VITALS: BP 105/51
[2018-06-14] MEDS ORDERED: PERCOCET 7.5 MG-325 PO (13:47)
--- NOTE | 2018-06-14 14:13 | NUR ---
PT DENIES ANY OTHER NEEDS OTHER THAT HOME HEALTH WHICH WILL BE SET UP WITH [facility]. WILL CONTINUE TO FOLLOW.
--- NOTE | 2018-06-14 15:15 | NUR ---
Discharge instructions reviewed with patient/family. Patient receptive and verbalizes understanding. Follow-up care arranged. Written instructions given to patient/family. OMI BOOTHE
--- NOTE | 2018-06-18 07:52 | NUR ---
PHYSICAL THERAPY CO-SIGN I approve of the Phyical Therapy notes written above. FARIHA RICO PT
== END 2018-06-14 15:16 | disposition home health service (06) | DRG 563 ==
LOC: ED 11:19 → EDHOLD 14:20 → 5E 14:20
PROVIDERS: Registered Nurse; Student in an Organized Health Care Education/Training Program; ADMIT Internal Medicine
PROC: 2W38X1Z Immobilization of Right Upper Extremity using Splint (ICD-10-PCS; principal; 2018-06-12)
DX: S42.291A Other displaced fracture of upper end of right humerus, initial encounter for closed fracture (principal); D80.1 Nonfamilial hypogammaglobulinemia; E44.0 Moderate protein-calorie malnutrition; I48.91 Unspecified atrial fibrillation; R55 Syncope and collapse; I10 Essential (primary) hypertension; Z96.653 Presence of artificial knee joint, bilateral; E78.5 Hyperlipidemia, unspecified; E55.9 Vitamin D deficiency, unspecified; E11.65 Type 2 diabetes mellitus with hyperglycemia; I95.9 Hypotension, unspecified; R00.1 Bradycardia, unspecified; J44.9 Chronic obstructive pulmonary disease, unspecified; W01.0XXA Fall on same level from slipping, tripping and stumbling without subsequent striking against object, initial encounter; Z88.1 Allergy status to other antibiotic agents; Z88.8 Allergy status to other drugs, medicaments and biological substances; Z90.49 Acquired absence of other specified parts of digestive tract; Z87.891 Personal history of nicotine dependence; Z82.0 Family history of epilepsy and other diseases of the nervous system; Z82.49 Family history of ischemic heart disease and other diseases of the circulatory system; Z83.1 Family history of other infectious and parasitic diseases; Y93.89 Activity, other specified; Y92.096 Garden or yard of other non-institutional residence as the place of occurrence of the external cause; Y99.8 Other external cause status; Z87.01 Personal history of pneumonia (recurrent); Z79.82 Long term (current) use of aspirin; Z79.899 Other long term (current) drug therapy; Z68.22 Body mass index [BMI] 22.0-22.9, adult

== ENCOUNTER → 2018-08-28 | Outpatient (CLI) | payer MEDICARE ==
[~2018-08-28] MED LIST changes: +PERCOCET 7.5 MG-325 PO
== END | disposition home or self-care (01) ==
LOC: ORTHO 01:14
DX: S42.291D Other displaced fracture of upper end of right humerus, subsequent encounter for fracture with routine healing (principal); X58.XXXD Exposure to other specified factors, subsequent encounter

== ENCOUNTER → 2018-09-30 | Outpatient (CLI) | payer MEDICARE | END | disposition home or self-care (01) | LOC: ORTHO 01:07 | DX: S42.291D Other displaced fracture of upper end of right humerus, subsequent encounter for fracture with routine healing (principal); X58.XXXD Exposure to other specified factors, subsequent encounter ==

== ENCOUNTER → 2018-11-18 | Outpatient (CLI) | payer MEDICARE | END | disposition home or self-care (01) | LOC: ORTHO 01:21 | DX: S42.291D Other displaced fracture of upper end of right humerus, subsequent encounter for fracture with routine healing (principal); X58.XXXD Exposure to other specified factors, subsequent encounter ==

== ENCOUNTER → 2019-04-10 | Outpatient (CLI) | payer MEDICARE ==
[2019-04-10 09:58] LABS: BASO % 0.6 % (0.0-1.0); EOS # 0.2 10*3/uL (0.0-0.4); EOS % 3.4 % (1.0-4.0); HEMATOCRIT 40.1 % (42.0-52.0); HEMOGLOBIN 12.3 g/dl (14.0-18.0); LYMPH # 1.6 10*3/uL (1.3-4.4); LYMPH % 30.9 % (27.0-41.0); MEAN CELL VOLUME 90.3 fl (80.0-94.0); MEAN CORPUSCULAR HGB 27.7 pg (27.0-31.0); MEAN CORPUSCULAR HGB CONC 30.7 g/dl (33.0-37.0); MEAN PLATELET VOLUME 9.4 fl (9.6-12.3); MONO # 0.7 10*3/uL (0.1-1.0); MONO % 12.6 % (3.0-9.0); NEUT # 2.7 10*3/uL (2.3-7.9); NEUT % 52.3 % (47.0-73.0); PLATELET COUNT AUTOMATED 309 10*3/uL (130-400); RED BLOOD COUNT 4.44 10*6/uL (4.50-5.90); RED CELL DISTRI WIDTH 15.5 % (0-14.5); WHITE BLOOD COUNT 5.2 10*3/uL (4.8-10.8)
[2019-04-10 10:30] LABS: CHLORIDE 102 mmol/L (98-107); POTASSIUM 4.1 mmol/L (3.5-5.1); SODIUM 137 mmol/L (136-145)
[2019-04-10 10:45] LABS: BUN 24 mg/dl (7-24); CHOLESTEROL 148 mg/dL (<200); CREATININE 1.24 mg/dL (0.70-1.30); HDL CHOLESTEROL 53 mg/dl (40-60); LDL CHOLESTEROL 72 mg/dL (9-159); SGOT/AST 14 IU/L (3-35); SGPT/ALT 18 U/L (12-78); TRIGLYCERIDES 114 mg/dl (<150); VLDL CHOLESTEROL 23 mg/dL (6-40)
== END | disposition home or self-care (01) ==
LOC: LAB 09:37
PROVIDERS: Internal Medicine Cardiovascular Disease
DX: I10 Essential (primary) hypertension (principal)

== ENCOUNTER → 2019-04-24 | Outpatient (CLI) | payer MEDICARE | END | disposition home or self-care (01) | LOC: RAD 09:48 | DX: J84.10 Pulmonary fibrosis, unspecified (principal); Z79.899 Other long term (current) drug therapy ==

== ENCOUNTER 2019-07-25 10:36 | Emergency (ER) | payer MEDICARE ==
[~2019-07-25] VITALS: Ht 198.1 cm; Wt 90.7 kg
[2019-07-25] MEDS ORDERED: NORCO 5-325 TA1 EACH PO ×3 (15:50→16:00)
[2019-07-25 16:11] VITALS: BP 148/62
== END 2019-07-25 16:15 | disposition home or self-care (01) ==
LOC: ED 10:36
DX: L30.9 Dermatitis, unspecified (principal); M25.552 Pain in left hip; Z88.8 Allergy status to other drugs, medicaments and biological substances; Z79.899 Other long term (current) drug therapy; Z79.84 Long term (current) use of oral hypoglycemic drugs; Z79.82 Long term (current) use of aspirin; Z90.49 Acquired absence of other specified parts of digestive tract

== ENCOUNTER 2019-08-15 13:33 | Emergency (ER) | payer MEDICARE ==
[~2019-08-15] VITALS: Ht 198.1 cm; Wt 90.7 kg
[~2019-08-15 13:33] MED LIST changes: +NORCO 5-325 TA1 EACH PO
[2019-08-15 13:51] VITALS: BP 138/68
[2019-08-15 14:33] LABS: BASO % 0.2 % (0.0-1.0); EOS # 0.2 10*3/uL (0.0-0.4); EOS % 2.5 % (1.0-4.0); HEMATOCRIT 35.1 % (42.0-52.0); LYMPH % 11.1 % (27.0-41.0); MEAN CELL VOLUME 88.4 fl (80.0-94.0); MEAN CORPUSCULAR HGB CONC 31.6 g/dl (33.0-37.0); MEAN PLATELET VOLUME 9.1 fl (9.6-12.3); NEUT # 6.8 10*3/uL (2.3-7.9); PLATELET COUNT AUTOMATED 359 10*3/uL (130-400); RED BLOOD COUNT 3.97 10*6/uL (4.50-5.90); WHITE BLOOD COUNT 9.1 10*3/uL (4.8-10.8)
[2019-08-15 14:47] LABS: ALBUMIN 2.8 gm/dl (3.1-4.5); ALKALINE PHOSPHATASE 98 U/L (45-117); BUN 25 mg/dl (7-24); CHLORIDE 103 mmol/L (98-107); CREATININE 1.34 mg/dL (0.70-1.30); POTASSIUM 4.3 mmol/L (3.5-5.1); SGOT/AST 11 IU/L (3-35); SGPT/ALT 16 U/L (12-78); SODIUM 137 mmol/L (136-145); TOTAL PROTEIN 8.6 gm/dL (6.4-8.2)
[2019-08-15 14:50] LABS: ACT PARTIAL THROMBO TIME 27.6 SECONDS (20.0-32.1)
== END 2019-08-15 19:11 | disposition home or self-care (01) ==
LOC: ED 13:33
PROVIDERS: Emergency Medicine
DX: R04.2 Hemoptysis (principal); I10 Essential (primary) hypertension; F41.9 Anxiety disorder, unspecified; K21.9 Gastro-esophageal reflux disease without esophagitis; J44.9 Chronic obstructive pulmonary disease, unspecified; F32.9 Major depressive disorder, single episode, unspecified; Z88.8 Allergy status to other drugs, medicaments and biological substances; Z79.899 Other long term (current) drug therapy

== ENCOUNTER → 2019-11-06 | Outpatient (CLI) | payer MEDICARE | END | disposition home or self-care (01) | LOC: CARD 10:22 | PROVIDERS: ATTEND Internal Medicine Cardiovascular Disease | DX: I48.0 Paroxysmal atrial fibrillation (principal) ==

== ENCOUNTER → 2019-11-25 | Outpatient (CLI) | payer MEDICARE | END | disposition home or self-care (01) | LOC: RAD 16:40 | PROVIDERS: ATTEND Physician Assistant | DX: J98.11 Atelectasis (principal); J43.2 Centrilobular emphysema ==

== ENCOUNTER → 2019-12-11 | Outpatient (CLI) | payer MEDICARE | END | disposition home or self-care (01) | LOC: CARD 09:17 | PROVIDERS: ATTEND Internal Medicine Cardiovascular Disease | DX: I48.0 Paroxysmal atrial fibrillation (principal) ==

== ENCOUNTER 2020-09-27 19:08 | Emergency (ER) | payer MEDICARE ==
[~2020-09-27] VITALS: Ht 198.1 cm; Wt 99.8 kg
[2020-09-27 19:23] VITALS: BP 152/79
[2020-09-27] MEDS ORDERED: DOXYCYCLINE100 M3 PO (19:40)
== END 2020-09-27 19:55 | disposition home or self-care (01) ==
LOC: ED 19:08
DX: A26.0 Cutaneous erysipeloid (principal); A69.20 Lyme disease, unspecified; Z88.1 Allergy status to other antibiotic agents; Z88.8 Allergy status to other drugs, medicaments and biological substances; Z79.899 Other long term (current) drug therapy; Z79.82 Long term (current) use of aspirin

== ENCOUNTER → 2021-07-29 | Outpatient (CLI) | payer MEDICARE | END | disposition home or self-care (01) | LOC: RAD 11:26 | PROVIDERS: ATTEND Orthopaedic Surgery | DX: M25.551 Pain in right hip (principal); I70.201 Unspecified atherosclerosis of native arteries of extremities, right leg ==

== ENCOUNTER → 2021-08-25 | Day surgery (SDC) | payer MEDICARE ==
[2021-08-25 07:12] VITALS: BP 153/83
[2021-08-25 07:55] VITALS: BP 151/88
[2021-08-25 08:00] VITALS: BP 161/82
[2021-08-25 08:05] VITALS: BP 144/87
[2021-08-25 08:07] VITALS: BP 152/87
[2021-08-25 08:10] VITALS: BP 158/78
== END | disposition home or self-care (01) ==
LOC: SDC 08-23 03:25
PROVIDERS: ATTEND Orthopaedic Surgery
DX: M16.11 Unilateral primary osteoarthritis, right hip (principal); I10 Essential (primary) hypertension; F41.9 Anxiety disorder, unspecified; K21.9 Gastro-esophageal reflux disease without esophagitis; J44.9 Chronic obstructive pulmonary disease, unspecified; F32.9 Major depressive disorder, single episode, unspecified; Z96.653 Presence of artificial knee joint, bilateral

== ENCOUNTER 2021-12-19 11:54 | Inpatient (IN) | payer MEDICARE ==
[~2021-12-19] VITALS: Ht 198.1 cm; Wt 97.1 kg
[~2021-12-19 11:54] MED LIST changes: +DECADRON6 M1 PO; +DOXYCYCLINE HY100 M3 PO; +PRAVASTATIN SOD20 MG PO
[2021-12-19 12:30] LABS: BASO % 0.2 % (0.0-1.0); EOS # 0.1 10*3/uL (0.0-0.4); EOS % 1.3 % (1.0-4.0); HEMATOCRIT 40.9 % (42.0-52.0); LYMPH # 0.9 10*3/uL (1.3-4.4); LYMPH % 10.6 % (27.0-41.0); MEAN CORPUSCULAR HGB 28.3 pg (27.0-31.0); MEAN CORPUSCULAR HGB CONC 32.5 g/dl (33.0-37.0); MEAN PLATELET VOLUME 9.6 fl (9.6-12.3); MONO % 11.5 % (3.0-9.0); NEUT # 6.6 10*3/uL (2.3-7.9); NEUT % 76.1 % (47.0-73.0); PLATELET COUNT AUTOMATED 322 10*3/uL (130-400); RED CELL DISTRI WIDTH 13.8 % (0-14.5); WHITE BLOOD COUNT 8.6 10*3/uL (4.8-10.8)
[2021-12-19 12:41] LABS: ACT PARTIAL THROMBO TIME 29.2 SECONDS (20.0-32.1); INTERNATIONAL NORM RATIO 1.1 (2.0-3.5)
[2021-12-19 12:45] LABS: CREATININE 1.6 mg/dL (0.70-1.30); POTASSIUM 3.9 mmol/L (3.5-5.1); TOTAL PROTEIN 8.4 gm/dL (6.4-8.2)
[2021-12-19 12:55] VITALS: BP 108/75
[2021-12-19 16:00] VITALS: BP 143/67
[2021-12-19 22:30] VITALS: BP 125/68
[2021-12-20 07:04] LABS: EOS % 0.3 % (1.0-4.0); HEMATOCRIT 35.3 % (42.0-52.0); LYMPH # 0.6 10*3/uL (1.3-4.4); LYMPH % 15.3 % (27.0-41.0); MEAN CELL VOLUME 89.4 fl (80.0-94.0); MEAN CORPUSCULAR HGB 28.4 pg (27.0-31.0); MEAN CORPUSCULAR HGB CONC 31.7 g/dl (33.0-37.0); MEAN PLATELET VOLUME 9.3 fl (9.6-12.3); MONO # 0.4 10*3/uL (0.1-1.0); MONO % 10.6 % (3.0-9.0); NEUT # 2.8 10*3/uL (2.3-7.9); NEUT % 73.3 % (47.0-73.0); PLATELET COUNT AUTOMATED 284 10*3/uL (130-400); RED BLOOD COUNT 3.95 10*6/uL (4.50-5.90); RED CELL DISTRI WIDTH 13.8 % (0-14.5); WHITE BLOOD COUNT 3.8 10*3/uL (4.8-10.8)
[2021-12-20 07:25] LABS: ALKALINE PHOSPHATASE 59 U/L (45-117); BUN 24 mg/dl (7-24); CHLORIDE 105 mmol/L (98-107); CREATININE 0.92 mg/dL (0.70-1.30); POTASSIUM 4.6 mmol/L (3.5-5.1); SGOT/AST 61 IU/L (3-35); SGPT/ALT 86 U/L (12-78); SODIUM 137 mmol/L (136-145); TOTAL PROTEIN 6.9 gm/dL (6.4-8.2)
[2021-12-20 08:00] VITALS: BP 140/60
[2021-12-20 12:00] VITALS: BP 142/62
[2021-12-20 15:09] VITALS: BP 143/67
[2021-12-20 20:00] VITALS: BP 148/74
[2021-12-21] VITALS: BP 128/66
[2021-12-21 06:36] LABS: EOS # 0.1 10*3/uL (0.0-0.4); EOS % 1.2 % (1.0-4.0); HEMATOCRIT 37.4 % (42.0-52.0); LYMPH # 0.9 10*3/uL (1.3-4.4); LYMPH % 14.4 % (27.0-41.0); MEAN CELL VOLUME 89.3 fl (80.0-94.0); MEAN CORPUSCULAR HGB 27.9 pg (27.0-31.0); MEAN CORPUSCULAR HGB CONC 31.3 g/dl (33.0-37.0); MEAN PLATELET VOLUME 9.2 fl (9.6-12.3); MONO # 0.5 10*3/uL (0.1-1.0); NEUT # 4.5 10*3/uL (2.3-7.9); NEUT % 74.9 % (47.0-73.0); PLATELET COUNT AUTOMATED 308 10*3/uL (130-400); RED BLOOD COUNT 4.19 10*6/uL (4.50-5.90); RED CELL DISTRI WIDTH 13.4 % (0-14.5)
[2021-12-21 06:51] LABS: ALKALINE PHOSPHATASE 61 U/L (45-117); BUN 24 mg/dl (7-24); CHLORIDE 102 mmol/L (98-107); CREATININE 0.98 mg/dL (0.70-1.30); POTASSIUM 4.8 mmol/L (3.5-5.1); SGOT/AST 52 IU/L (3-35); SGPT/ALT 99 U/L (12-78); SODIUM 136 mmol/L (136-145); TOTAL PROTEIN 7.1 gm/dL (6.4-8.2)
[2021-12-21 08:00] VITALS: BP 131/52
[2021-12-21] MEDS ORDERED: VIBRA-TAB100 MG PO (11:43)
[2021-12-21] MEDS ORDERED: METFORMIN HYDR500 MG PO (11:43)
[2021-12-21] MEDS ORDERED: DECADRON6 M1 PO (11:43)
[2021-12-21] MEDS ORDERED: MUCINEX1200 M1 PO (11:43)
[2021-12-21] MEDS ORDERED: LEVOFLOXACIN750 M2 PO (11:43)
== END 2021-12-21 13:05 | disposition home or self-care (01) | DRG 871 ==
LOC: ED 11:54 → 4E 13:00 → EDHOLD 13:00 → 4E 20:26
PROVIDERS: Internal Medicine; Nurse Practitioner Family; ADMIT Emergency Medicine; ATTEND Emergency Medicine
DX: A41.9 Sepsis, unspecified organism (principal); E43 Unspecified severe protein-calorie malnutrition; J18.9 Pneumonia, unspecified organism; J96.01 Acute respiratory failure with hypoxia; N17.0 Acute kidney failure with tubular necrosis; E87.20 Acidosis, unspecified; E87.1 Hypo-osmolality and hyponatremia; R65.20 Severe sepsis without septic shock; J47.9 Bronchiectasis, uncomplicated; Z20.822 Contact with and (suspected) exposure to COVID-19; I48.91 Unspecified atrial fibrillation; Z96.653 Presence of artificial knee joint, bilateral; J43.9 Emphysema, unspecified; E87.8 Other disorders of electrolyte and fluid balance, not elsewhere classified; I10 Essential (primary) hypertension; J84.10 Pulmonary fibrosis, unspecified; E78.5 Hyperlipidemia, unspecified; E04.1 Nontoxic single thyroid nodule; E11.65 Type 2 diabetes mellitus with hyperglycemia; Z77.090 Contact with and (suspected) exposure to asbestos; R59.0 Localized enlarged lymph nodes; D64.9 Anemia, unspecified; E55.9 Vitamin D deficiency, unspecified; R74.01 Elevation of levels of liver transaminase levels; Z88.8 Allergy status to other drugs, medicaments and biological substances; Z90.49 Acquired absence of other specified parts of digestive tract; Z82.49 Family history of ischemic heart disease and other diseases of the circulatory system; Z83.6 Family history of other diseases of the respiratory system; Z81.8 Family history of other mental and behavioral disorders; Z78.9 Other specified health status; Z68.24 Body mass index [BMI] 24.0-24.9, adult

== ENCOUNTER → 2022-02-16 | Outpatient (CLI) | payer MEDICARE ==
[~2022-02-16] MED LIST changes: +LEVOFLOXACIN750 M2 PO; +METFORMIN HYDR500 MG PO; +MUCINEX1200 M1 PO; +VIBRA-TAB100 MG PO
== END | disposition home or self-care (01) ==
LOC: CARD 00:14
PROVIDERS: ATTEND Internal Medicine Cardiovascular Disease
DX: I08.0 Rheumatic disorders of both mitral and aortic valves (principal)

== ENCOUNTER → 2022-10-13 | Outpatient (CLI) | payer MEDICARE | END | disposition home or self-care (01) | LOC: ORTHO 03:05 | PROVIDERS: ATTEND Orthopaedic Surgery | DX: M16.0 Bilateral primary osteoarthritis of hip (principal) ==

== ENCOUNTER → 2022-12-12 | Outpatient (CLI) | payer MEDICARE | END | disposition home or self-care (01) | LOC: MRI 14:40 | PROVIDERS: ATTEND Physician Assistant | DX: R44.3 Hallucinations, unspecified (principal) ==

== ENCOUNTER → 2023-07-18 | Outpatient (CLI) | payer MEDICARE ==
[~2023-07-18] MED LIST changes: +ASPIR-TRIN325 MG PO; +DALIRESP500 MC1 PO; +IOHEXOL 300 MG/ML 100 ML VIAL IV ONE; +LATANOPROST2.5 ML OD; +MEDROL8 MG PO; +MIRTAZAPINE15 M2 PO; +OMEPRAZOLE20 M3 PO; +TRELEGY ELLIPT1 EAC1 INH; +VITAMIN D350 MCG PO
== END | disposition home or self-care (01) ==
LOC: CT 08:50
PROVIDERS: ATTEND Physician Assistant
DX: J43.2 Centrilobular emphysema (principal); J18.9 Pneumonia, unspecified organism; R91.8 Other nonspecific abnormal finding of lung field; I25.10 Atherosclerotic heart disease of native coronary artery without angina pectoris; K44.9 Diaphragmatic hernia without obstruction or gangrene; K80.20 Calculus of gallbladder without cholecystitis without obstruction; N28.1 Cyst of kidney, acquired; E04.2 Nontoxic multinodular goiter; J47.9 Bronchiectasis, uncomplicated; J98.4 Other disorders of lung

== ENCOUNTER 2023-09-17 17:26 | Inpatient (IN) | payer MEDICARE ==
[~2023-09-17] VITALS: Ht 198.1 cm; Wt 91.6 kg
[~2023-09-17 17:26] MED LIST changes: -IOHEXOL 300 MG/ML 100 ML VIAL IV ONE
[2023-09-17 17:35] VITALS: BP 156/82
[2023-09-17] MEDS ORDERED: methylPREDNISolone sod succ 125 MG VIAL IV ONE (17:50)
[2023-09-17 18:17] LABS: BASO % 0.4 % (0.0-1.0); EOS # 0.2 10*3/uL (0.0-0.4); EOS % 2.6 % (1.0-4.0); HEMATOCRIT 41.7 % (42.0-52.0); LYMPH # 0.8 10*3/uL (1.3-4.4); LYMPH % 9.8 % (27.0-41.0); MEAN CELL VOLUME 93.9 fl (80.0-94.0); MEAN CORPUSCULAR HGB 28.2 pg (27.0-31.0); MEAN PLATELET VOLUME 9.1 fl (9.6-12.3); MONO # 0.8 10*3/uL (0.1-1.0); MONO % 9.7 % (3.0-9.0); NEUT # 6.1 10*3/uL (2.3-7.9); NEUT % 77.1 % (47.0-73.0); PLATELET COUNT AUTOMATED 286 10*3/uL (130-400); RED BLOOD COUNT 4.44 10*6/uL (4.50-5.90); RED CELL DISTRI WIDTH 14.3 % (0-14.5); WHITE BLOOD COUNT 7.9 10*3/uL (4.8-10.8)
[2023-09-17 18:33] LABS: ACT PARTIAL THROMBO TIME 26.9 SECONDS (20.0-32.1)
[2023-09-17 18:36] LABS: POTASSIUM 4.5 mmol/L (3.4-5.1)
[2023-09-17] MEDS ORDERED: IOHEXOL 350 MG/ML 100 ML VIAL IV ONE (19:05)
[2023-09-17] MEDS ORDERED: SODIUM CHLORIDE 0.9% 100 ML BAG IV ONE (19:05)
[2023-09-17] MEDS ORDERED: LEVOFLOXACIN 150 ML IV ONE (19:10)
[2023-09-17] MEDS ORDERED: SODIUM CHLORIDE 0.9% 1,000 ML IV ONE (19:10)
[2023-09-17 20:31] VITALS: BP 104/48
[2023-09-17] MEDS ORDERED: ACETAMINOPHEN 650 MG SUPP R PRN (22:10)
[2023-09-17] MEDS ORDERED: BISACODYL 10 MG SUPP R PRN (22:10)
[2023-09-17] MEDS ORDERED: Magnesium Hydroxide 30 ML UDC PO PRN (22:10)
[2023-09-17] MEDS ORDERED: TEMAZEPAM 15 MG CAP PO PRN (22:10)
[2023-09-17] MEDS ORDERED: Acetaminophen/Hydrocodone 5 MG/325 MG TABLET PO PRN (22:10)
[2023-09-17] MEDS ORDERED: Ondansetron Hydrochloride 4 MG/2 ML VIAL IV PRN (22:10)
[2023-09-17] MEDS ORDERED: ACETAMINOPHEN 325 MG TAB PO PRN (22:10)
[2023-09-17] MEDS ORDERED: BISACODYL 5 MG TAB PO PRN (22:10)
[2023-09-17] MEDS ORDERED: MORPHINE Sulfate 2 MG/ML SYR IV PRN (22:10)
[2023-09-17] MEDS ORDERED: Albuterol Sulf/Ipratropium 3 ML VIAL NEB PRN (22:15)
[2023-09-18] MEDS ORDERED: Enoxaparin Sodium 100 MG/ML SYR SC SCH
[2023-09-18 00:23] VITALS: BP 100/42
[2023-09-18] MEDS ORDERED: methylPREDNISolone sod succ 40 MG VIAL IV SCH (06:00)
[2023-09-18 06:26] LABS: HEMATOCRIT 36.9 % (42.0-52.0); LYMPH # 0.3 10*3/uL (1.3-4.4); LYMPH % 8.2 % (27.0-41.0); MEAN CELL VOLUME 92.5 fl (80.0-94.0); MEAN CORPUSCULAR HGB 28.8 pg (27.0-31.0); MEAN CORPUSCULAR HGB CONC 31.2 g/dl (33.0-37.0); MEAN PLATELET VOLUME 9.2 fl (9.6-12.3); MONO # 0.1 10*3/uL (0.1-1.0); MONO % 1.9 % (3.0-9.0); NEUT # 3.7 10*3/uL (2.3-7.9); NEUT % 89.7 % (47.0-73.0); PLATELET COUNT AUTOMATED 272 10*3/uL (130-400); RED BLOOD COUNT 3.99 10*6/uL (4.50-5.90); RED CELL DISTRI WIDTH 14.1 % (0-14.5); WHITE BLOOD COUNT 4.1 10*3/uL (4.8-10.8)
[2023-09-18 06:28] LABS: ACT PARTIAL THROMBO TIME 28.2 SECONDS (20.0-32.1)
[2023-09-18 06:48] LABS: ALKALINE PHOSPHATASE 57 U/L (46-116); BUN 25 mg/dl (9-23); CHLORIDE 101 mmol/L (98-107); CHOLESTEROL 130 mg/dL (<200); FREE T4 1.39 ng/dl (0.89-1.76); LDL CHOLESTEROL 77 mg/dL (9-159); POTASSIUM 4.5 mmol/L (3.4-5.1); SGPT/ALT 10 U/L (5-49); TOTAL PROTEIN 7.2 gm/dL (6.0-8.0); TRIGLYCERIDES 64 mg/dl (<150)
[2023-09-18 06:55] LABS: VITAMIN D, 25-HYDROXY 36.7 ng/mL (30-100)
[2023-09-18 08:30] VITALS: BP 136/77
[2023-09-18] MEDS ORDERED: Enoxaparin Sodium 40 MG/0.4 ML SYR SC SCH (10:00)
[2023-09-18] MEDS ORDERED: Dextromethorphan Hydrobromid 1 TAB TAB PO SCH (10:00)
[2023-09-18] MEDS ORDERED: Doxycycline Hyclate 100 MG in SODIUM CHLORIDE 0.9% 250 ML IV SCH (14:00)
[2023-09-18 14:18] VITALS: BP 129/70
[2023-09-18] MEDS ORDERED: DEXTROSE 10 % IN WATER 250 ML IV PRN (14:35)
[2023-09-18] MEDS ORDERED: INSULIN LISPRO 1 UNIT/0.01 ML SQ SCH (16:30)
[2023-09-18 18:14] VITALS: BP 158/70
[2023-09-18 20:00] VITALS: BP 131/62
[2023-09-18] MEDS ORDERED: LEVOFLOXACIN 150 ML IV SCH (20:00)
[2023-09-18] MEDS ORDERED: Montelukast Sodium 10 MG TAB PO SCH (22:00)
[2023-09-18] MEDS ORDERED: GUAIFENESIN 600 MG TAB ER PO SCH (22:00)
[2023-09-18] MEDS ORDERED: LATANOPROST 0.005% 2.5 ML BOTTLE OPH SCH (22:00)
[2023-09-18 23:58] VITALS: BP 107/51
[2023-09-19 08:05] LABS: HEMATOCRIT 36.1 % (42.0-52.0); MEAN CORPUSCULAR HGB 28.4 pg (27.0-31.0); MEAN CORPUSCULAR HGB CONC 31.6 g/dl (33.0-37.0); MEAN PLATELET VOLUME 9.1 fl (9.6-12.3); PLATELET COUNT AUTOMATED 292 10*3/uL (130-400); RED BLOOD COUNT 4.01 10*6/uL (4.50-5.90); WHITE BLOOD COUNT 8.6 10*3/uL (4.8-10.8)
[2023-09-19 08:14] VITALS: BP 130/60
[2023-09-19 08:17] LABS: CHLORIDE 102 mmol/L (98-107); POTASSIUM 4.8 mmol/L (3.4-5.1)
[2023-09-19 08:18] LABS: BUN 14 mg/dl (9-23)
[2023-09-19 08:26] LABS: MANUAL DIFF REFLEX YES
[2023-09-19 08:29] LABS: PLATELET SUFFICIENCY NORMAL (NORMAL); TOTAL CELLS COUNTED 100 #CELLS
[2023-09-19] MEDS ORDERED: ASPIRIN 325 MG TAB PO SCH (10:00)
[2023-09-19] MEDS ORDERED: SIMVASTATIN 20 MG TAB PO SCH (10:00)
[2023-09-19] MEDS ORDERED: Enoxaparin Sodium 40 MG/0.4 ML SYR SC SCH (10:00)
[2023-09-19] MEDS ORDERED: Cetirizine Hydrochloride 10 MG TAB PO SCH (10:00)
[2023-09-19 12:31] VITALS: BP 142/72
[2023-09-19 15:00] VITALS: BP 149/68
[2023-09-19 16:00] VITALS: BP 149/68
[2023-09-19 20:00] VITALS: BP 135/73
[2023-09-20] VITALS: BP 143/63
[2023-09-20 06:57] LABS: BASO % 0.1 % (0.0-1.0); HEMATOCRIT 36.5 % (42.0-52.0); LYMPH # 0.9 10*3/uL (1.3-4.4); LYMPH % 9.3 % (27.0-41.0); MEAN CELL VOLUME 90.3 fl (80.0-94.0); MEAN CORPUSCULAR HGB CONC 32.1 g/dl (33.0-37.0); MEAN PLATELET VOLUME 9.2 fl (9.6-12.3); MONO # 0.4 10*3/uL (0.1-1.0); NEUT # 8.6 10*3/uL (2.3-7.9); NEUT % 86.2 % (47.0-73.0); PLATELET COUNT AUTOMATED 312 10*3/uL (130-400); RED BLOOD COUNT 4.04 10*6/uL (4.50-5.90)
[2023-09-20 07:26] LABS: BUN 17 mg/dl (9-23); CHLORIDE 103 mmol/L (98-107); POTASSIUM 4.9 mmol/L (3.4-5.1)
[2023-09-20 08:00] VITALS: BP 157/81
[2023-09-20 11:57] VITALS: BP 130/76
[2023-09-20 16:00] VITALS: BP 149/86
[2023-09-20 20:00] VITALS: BP 149/83
[2023-09-21] VITALS: BP 148/70
[2023-09-21 06:30] LABS: HEMATOCRIT 36.1 % (42.0-52.0); LYMPH % 10.2 % (27.0-41.0); MEAN CELL VOLUME 89.6 fl (80.0-94.0); MEAN CORPUSCULAR HGB 28.8 pg (27.0-31.0); MEAN CORPUSCULAR HGB CONC 32.1 g/dl (33.0-37.0); MEAN PLATELET VOLUME 9.1 fl (9.6-12.3); MONO # 0.6 10*3/uL (0.1-1.0); MONO % 5.6 % (3.0-9.0); NEUT # 8.4 10*3/uL (2.3-7.9); NEUT % 83.6 % (47.0-73.0); PLATELET COUNT AUTOMATED 330 10*3/uL (130-400); RED BLOOD COUNT 4.03 10*6/uL (4.50-5.90); RED CELL DISTRI WIDTH 13.8 % (0-14.5)
[2023-09-21 07:11] LABS: BUN 24 mg/dl (9-23); CHLORIDE 101 mmol/L (98-107); POTASSIUM 4.9 mmol/L (3.4-5.1)
[2023-09-21 08:00] VITALS: BP 139/69
[2023-09-21] MEDS ORDERED: MUCUS RELIEF600 MG PO (08:48)
[2023-09-21] MEDS ORDERED: LOPRESSOR100 M1 PO (09:03)
== END 2023-09-21 10:34 | disposition home or self-care (01) | DRG 177 ==
LOC: ED 17:26 → EDHOLD 21:26 → 4E 21:26
PROVIDERS: Internal Medicine; Physician Assistant Medical; Student in an Organized Health Care Education/Training Program; ADMIT Internal Medicine; ATTEND Internal Medicine
DX: J69.0 Pneumonitis due to inhalation of food and vomit (principal); J96.01 Acute respiratory failure with hypoxia; N17.0 Acute kidney failure with tubular necrosis; J44.1 Chronic obstructive pulmonary disease with (acute) exacerbation; E87.1 Hypo-osmolality and hyponatremia; F33.9 Major depressive disorder, recurrent, unspecified; E44.0 Moderate protein-calorie malnutrition; N18.32 Chronic kidney disease, stage 3b; Z96.653 Presence of artificial knee joint, bilateral; I12.9 Hypertensive chronic kidney disease with stage 1 through stage 4 chronic kidney disease, or unspecified chronic kidney disease; K21.9 Gastro-esophageal reflux disease without esophagitis; F41.1 Generalized anxiety disorder; E11.22 Type 2 diabetes mellitus with diabetic chronic kidney disease; D64.9 Anemia, unspecified; E78.2 Mixed hyperlipidemia; I48.0 Paroxysmal atrial fibrillation; E55.9 Vitamin D deficiency, unspecified; K57.30 Diverticulosis of large intestine without perforation or abscess without bleeding; M47.812 Spondylosis without myelopathy or radiculopathy, cervical region; E11.65 Type 2 diabetes mellitus with hyperglycemia; Z88.8 Allergy status to other drugs, medicaments and biological substances; Z90.49 Acquired absence of other specified parts of digestive tract; Z83.6 Family history of other diseases of the respiratory system; Z81.8 Family history of other mental and behavioral disorders; Z86.73 Personal history of transient ischemic attack (TIA), and cerebral infarction without residual deficits; Z68.23 Body mass index [BMI] 23.0-23.9, adult

== ENCOUNTER → 2023-10-10 | Outpatient (CLI) | payer MEDICARE ==
[~2023-10-10] MED LIST changes: +MUCUS RELIEF600 MG PO
== END | disposition home or self-care (01) ==
LOC: RAD 14:44
PROVIDERS: ATTEND Physician Assistant
DX: J98.4 Other disorders of lung (principal); J18.9 Pneumonia, unspecified organism

== ENCOUNTER → 2023-10-16 | Outpatient (CLI) | payer MEDICARE | END | disposition home or self-care (01) | LOC: RAD 17:37 | PROVIDERS: ATTEND Physician Assistant | DX: J18.0 Bronchopneumonia, unspecified organism (principal); J44.9 Chronic obstructive pulmonary disease, unspecified ==

== ENCOUNTER → 2023-11-30 | Outpatient (CLI) | payer MEDICARE ==
[~2023-11-30] MED LIST changes: +PREDNISONE20 M1 PO; +XARE20MG PO
[2023-11-30 11:30] LABS: BASO % 0.4 % (0.0-1.0); EOS # 0.1 10*3/uL (0.0-0.4); EOS % 1.4 % (1.0-4.0); HEMATOCRIT 41.4 % (42.0-52.0); LYMPH # 1.5 10*3/uL (1.3-4.4); LYMPH % 18.6 % (27.0-41.0); MEAN CELL VOLUME 90.4 fl (80.0-94.0); MEAN CORPUSCULAR HGB 28.6 pg (27.0-31.0); MEAN CORPUSCULAR HGB CONC 31.6 g/dl (33.0-37.0); MEAN PLATELET VOLUME 8.7 fl (9.6-12.3); MONO % 12.5 % (3.0-9.0); NEUT # 5.2 10*3/uL (2.3-7.9); NEUT % 66.5 % (47.0-73.0); PLATELET COUNT AUTOMATED 370 10*3/uL (130-400); RED BLOOD COUNT 4.58 10*6/uL (4.50-5.90); RED CELL DISTRI WIDTH 15.6 % (0-14.5); WHITE BLOOD COUNT 7.9 10*3/uL (4.8-10.8)
== END | disposition home or self-care (01) ==
LOC: LAB 11:11
PROVIDERS: ATTEND Internal Medicine Pulmonary Disease
DX: J31.0 Chronic rhinitis (principal)

== ENCOUNTER 2024-01-08 10:29 | Emergency (ER) | payer MEDICARE ==
[~2024-01-08] VITALS: Ht 198.1 cm; Wt 93.4 kg
[2024-01-08 10:35] VITALS: BP 106/55
[2024-01-08] MEDS ORDERED: ACETAMINOPHEN 325 MG TAB PO ONE (11:10)
[2024-01-08 11:30] LABS: BASO % 0.5 % (0.0-1.0); EOS # 0.3 10*3/uL (0.0-0.4); EOS % 4.9 % (1.0-4.0); HEMATOCRIT 37.1 % (42.0-52.0); MEAN CELL VOLUME 93.5 fl (80.0-94.0); MEAN CORPUSCULAR HGB 28.2 pg (27.0-31.0); MEAN CORPUSCULAR HGB CONC 30.2 g/dl (33.0-37.0); MEAN PLATELET VOLUME 9.1 fl (9.6-12.3); MONO # 0.6 10*3/uL (0.1-1.0); MONO % 10.9 % (3.0-9.0); NEUT # 3.7 10*3/uL (2.3-7.9); NEUT % 65.1 % (47.0-73.0); PLATELET COUNT AUTOMATED 365 10*3/uL (130-400); RED BLOOD COUNT 3.97 10*6/uL (4.50-5.90); WHITE BLOOD COUNT 5.7 10*3/uL (4.8-10.8)
[2024-01-08 11:49] LABS: ALKALINE PHOSPHATASE 59 U/L (46-116); BUN 17 mg/dl (9-23); CHLORIDE 100 mmol/L (98-107); POTASSIUM 3.6 mmol/L (3.4-5.1); TOTAL PROTEIN 7.8 gm/dL (6.0-8.0)
[2024-01-08] MEDS ORDERED: MAGNESIUM SULFATE 50 ML IV ONE (11:55)
[2024-01-08 11:57] LABS: SGPT/ALT < 7 U/L (5-49)
[2024-01-08] MEDS ORDERED: BUMETANIDE 1 MG/4 ML VIAL IV ONE (12:35)
[2024-01-08] MEDS ORDERED: TOPROL XL100 MG PO (14:01)
[2024-01-08 14:06] LABS: BILIRUBIN Negative (Negative); BLOOD Negative (Negative); CLARITY Clear (Clear); COLOR Yellow (Yellow); GLUCOSE Negative (Negative); KETONE Negative (Negative); LEUKO ESTERASE Negative (Negative); NITRITE Negative (Negative); PH 5.5 (4.5-8.0); UROBILINOGEN 0.2 E.U./dl (0.0-1.0)
[2024-01-08 14:20] LABS: MUCOUS 1+; RBC 0-2 rbc/hpf (0-2); WBC 0-2 wbc/hpf (0-5)
== END 2024-01-08 14:28 | disposition home or self-care (01) ==
LOC: ED 10:29
PROVIDERS: Emergency Medicine
DX: S22.32XA Fracture of one rib, left side, initial encounter for closed fracture (principal); I10 Essential (primary) hypertension; F41.9 Anxiety disorder, unspecified; K21.9 Gastro-esophageal reflux disease without esophagitis; J44.9 Chronic obstructive pulmonary disease, unspecified; F32.A Depression, unspecified; I48.91 Unspecified atrial fibrillation; F17.200 Nicotine dependence, unspecified, uncomplicated; Z88.1 Allergy status to other antibiotic agents; Z88.8 Allergy status to other drugs, medicaments and biological substances; Z90.49 Acquired absence of other specified parts of digestive tract; Z98.890 Other specified postprocedural states; Z96.653 Presence of artificial knee joint, bilateral; Z90.89 Acquired absence of other organs; W01.198A Fall on same level from slipping, tripping and stumbling with subsequent striking against other object, initial encounter; Y93.89 Activity, other specified; Y92.89 Other specified places as the place of occurrence of the external cause; Y99.8 Other external cause status

== ENCOUNTER → 2024-04-25 | Outpatient (CLI) | payer MEDICARE ==
[~2024-04-25] MED LIST changes: +DILTIAZEM HCL120 M2 PO; +METOPROLOL TAR100 M1 PO; +METOPROLOL TART50 M1 PO; +MUCUS RELIEF E600 MG PO; +TOPROL XL100 MG PO
== END | disposition home or self-care (01) ==
LOC: RAD 14:21
PROVIDERS: ATTEND Podiatrist Foot & Ankle Surgery
DX: E11.621 Type 2 diabetes mellitus with foot ulcer (principal)

== ENCOUNTER 2024-08-03 02:45 | Inpatient (IN) | payer MEDICARE ==
[2024-08-03] VITALS (8 sets, daily range): BP systolic 82–112; BP diastolic 40–96
[~2024-08-03] VITALS: Ht 198.1 cm; Wt 81.8 kg
[~2024-08-03 02:45] MED LIST changes: +LASIX20 MG PO; +LEADER ASPIRIN325 MG PO; +VENT7GM INH
[2024-08-03] MEDS ORDERED: ACETAMINOPHEN 100 ML IV ONE ×2 (03:00→03:35)
[2024-08-03] MEDS ORDERED: Albuterol Sulf/Ipratropium 3 ML VIAL NEB ONE (03:00)
[2024-08-03] MEDS ORDERED: SODIUM CHLORIDE 0.9% 1,000 ML IV SCH (03:10)
[2024-08-03] MEDS ORDERED: dilTIAZem Hydrochloride 25 MG/5 ML VIAL IV ONE (03:15)
[2024-08-03 03:22] LABS: BASO % 0.2 % (0.0-1.0); EOS # 0.1 10*3/uL (0.0-0.4); EOS % 2.1 % (1.0-4.0); MEAN CELL VOLUME 85.6 fl (80.0-94.0); MEAN CORPUSCULAR HGB 26.8 pg (27.0-31.0); MEAN CORPUSCULAR HGB CONC 31.3 g/dl (33.0-37.0); MEAN PLATELET VOLUME 9.4 fl (9.6-12.3); MONO # 0.7 10*3/uL (0.1-1.0); MONO % 12.9 % (3.0-9.0); NEUT % 70.9 % (47.0-73.0); PLATELET COUNT AUTOMATED 251 10*3/uL (130-400); RED BLOOD COUNT 3.62 10*6/uL (4.50-5.90); RED CELL DISTRI WIDTH 15.2 % (0-14.5); WHITE BLOOD COUNT 5.6 10*3/uL (4.8-10.8)
[2024-08-03 03:45] LABS: ALKALINE PHOSPHATASE 55 U/L (46-116); BUN 23 mg/dl (9-23); CHLORIDE 96 mmol/L (98-107); CPK 28 U/L (34-171); POTASSIUM 4.1 mmol/L (3.4-5.1); SGPT/ALT 10 U/L (5-49); TOTAL PROTEIN 6.9 gm/dL (6.0-8.0)
[2024-08-03] MEDS ORDERED: Piperacillin Sodium/Tazobact 100 ML IV ONE (04:20)
[2024-08-03] MEDS ORDERED: Magnesium Hydroxide 30 ML UDC PO PRN (05:50)
[2024-08-03] MEDS ORDERED: TEMAZEPAM 15 MG CAP PO PRN (05:50)
[2024-08-03] MEDS ORDERED: Acetaminophen/Hydrocodone 5 MG/325 MG TABLET PO PRN (05:50)
[2024-08-03] MEDS ORDERED: ACETAMINOPHEN 650 MG SUPP R PRN (05:50)
[2024-08-03] MEDS ORDERED: Ondansetron Hydrochloride 4 MG/2 ML VIAL IV PRN (05:50)
[2024-08-03] MEDS ORDERED: ACETAMINOPHEN 325 MG TAB PO PRN (05:50)
[2024-08-03] MEDS ORDERED: BISACODYL 5 MG TAB PO PRN (05:50)
[2024-08-03] MEDS ORDERED: BISACODYL 10 MG SUPP R PRN (05:50)
[2024-08-03 07:00] LABS: BILIRUBIN Negative (Negative); BLOOD Negative (Negative); CLARITY Clear (Clear); COLOR Yellow (Yellow); GLUCOSE Negative (Negative); KETONE Negative (Negative); LEUKO ESTERASE Negative (Negative); NITRITE Negative (Negative); PH 5.5 (4.5-8.0); SPECIFIC GRAVITY 1.015 (1.001-1.030)
[2024-08-03] MEDS ORDERED: Albuterol Sulf/Ipratropium 3 ML VIAL NEB SCH (07:40)
[2024-08-03 08:29] LABS: BACTERIA 2+; EPITHELIAL CELLS 0-2; RBC 0-2 rbc/hpf (0-2); WBC 0-2 wbc/hpf (0-5)
[2024-08-03] MEDS ORDERED: GUAIFENESIN 600 MG TAB ER PO SCH (10:00)
[2024-08-03] MEDS ORDERED: SIMVASTATIN 20 MG TAB PO SCH (10:00)
[2024-08-03] MEDS ORDERED: Metoprolol Tartrate 50 MG TAB PO SCH (10:00)
[2024-08-03] MEDS ORDERED: methylPREDNISolone sod succ 40 MG VIAL IV SCH (10:00)
[2024-08-03] MEDS ORDERED: RIVAROXABAN 20 MG TAB PO SCH (10:00)
[2024-08-03] MEDS ORDERED: ASPIRIN 325 MG ENTERIC COATED PO SCH (10:00)
[2024-08-03 11:16] LABS: ABG BASE EXCESS 0.4 mmol/L (-2.0-3.0); ARTERIAL BLOOD GAS PH 7.409 (7.350-7.450); ARTERIAL BLOOD GAS PO2 88.3 mmHg (83.0-108.0)
[2024-08-03] MEDS ORDERED: Piperacillin Sodium/Tazobact 50 ML IV SCH (12:00)
[2024-08-03] MEDS ORDERED: SODIUM CHLORIDE 0.9% 500 ML IV ONE (16:25)
[2024-08-03] MEDS ORDERED: LATANOPROST 0.005% 2.5 ML BOTTLE OPH SCH (22:00)
[2024-08-03] MEDS ORDERED: Montelukast Sodium 10 MG TAB PO SCH (22:00)
[2024-08-04] VITALS: BP 127/83
[2024-08-04] MEDS ORDERED: OMEPRAZOLE 20 MG CAP PO SCH (06:00)
[2024-08-04 07:12] LABS: HEMATOCRIT 31.2 % (42.0-52.0); MEAN CORPUSCULAR HGB 26.4 pg (27.0-31.0); MEAN CORPUSCULAR HGB CONC 29.5 g/dl (33.0-37.0); MEAN PLATELET VOLUME 9.8 fl (9.6-12.3); MONO # 0.1 10*3/uL (0.1-1.0); MONO % 3.3 % (3.0-9.0); NEUT # 2.6 10*3/uL (2.3-7.9); NEUT % 87.1 % (47.0-73.0); PLATELET COUNT AUTOMATED 260 10*3/uL (130-400); RED BLOOD COUNT 3.49 10*6/uL (4.50-5.90); RED CELL DISTRI WIDTH 15.2 % (0-14.5)
[2024-08-04 07:13] LABS: MEAN CELL VOLUME 89.4 fl (80.0-94.0)
[2024-08-04 07:41] LABS: BUN 20 mg/dl (9-23); CHLORIDE 99 mmol/L (98-107); POTASSIUM 3.9 mmol/L (3.4-5.1)
[2024-08-04 08:00] VITALS: BP 134/80
[2024-08-04] MEDS ORDERED: DEXTROSE 50% 25 GM/50 ML VIAL IV PRN (09:00)
[2024-08-04] MEDS ORDERED: MAGNESIUM SULFATE 50 ML IV ONE (10:50)
[2024-08-04] MEDS ORDERED: INSULIN LISPRO 1 UNIT/0.01 ML SQ SCH (11:30)
[2024-08-04 12:00] VITALS: BP 123/81
[2024-08-04 13:43] VITALS: BP 117/52
[2024-08-04 16:00] VITALS: BP 108/69
[2024-08-04 20:00] VITALS: BP 117/61
[2024-08-05] VITALS: BP 131/89
[2024-08-05 06:27] LABS: HEMATOCRIT 29.9 % (42.0-52.0); MEAN CELL VOLUME 87.4 fl (80.0-94.0); MEAN CORPUSCULAR HGB 26.6 pg (27.0-31.0); MEAN CORPUSCULAR HGB CONC 30.4 g/dl (33.0-37.0); MEAN PLATELET VOLUME 9.5 fl (9.6-12.3); PLATELET COUNT AUTOMATED 292 10*3/uL (130-400); RED BLOOD COUNT 3.42 10*6/uL (4.50-5.90); RED CELL DISTRI WIDTH 15.3 % (0-14.5); WHITE BLOOD COUNT 8.4 10*3/uL (4.8-10.8)
[2024-08-05 06:50] LABS: MANUAL DIFF REFLEX YES
[2024-08-05 07:07] LABS: BUN 19 mg/dl (9-23); CHLORIDE 100 mmol/L (98-107)
[2024-08-05 07:40] LABS: POTASSIUM 5.1 mmol/L (3.4-5.1)
[2024-08-05 07:42] LABS: TOTAL CELLS COUNTED 100 #CELLS
[2024-08-05 07:48] LABS: PLATELET SUFFICIENCY NORMAL (NORMAL); POLYCHROMASIA SLIGHT
[2024-08-05] MEDS ORDERED: Albuterol Sulf/Ipratropium 3 ML VIAL NEB ONE (07:55)
[2024-08-05 08:00] VITALS: BP 134/79
[2024-08-05] MEDS ORDERED: Dextromethorphan Hydrobromid 1 TAB TAB PO SCH (10:00)
[2024-08-05 12:00] VITALS: BP 118/86
[2024-08-05] MEDS ORDERED: Albuterol Sulf/Ipratropium 3 ML VIAL NEB SCH (14:00)
[2024-08-05 16:00] VITALS: BP 138/82
[2024-08-05 20:00] VITALS: BP 132/92
[2024-08-06] VITALS: BP 121/72
[2024-08-06] MEDS ORDERED: methylPREDNISolone sod succ 40 MG VIAL IV SCH ×2 (03:11→10:00)
[2024-08-06] MEDS ORDERED: MENTHOL USP 1 LOZ LOZENGE PO PRN (03:30)
[2024-08-06] MEDS ORDERED: BENZONATATE 100 MG CAP PO PRN (04:05)
[2024-08-06] MEDS ORDERED: Midazolam Hydrochloride 2 MG/2 ML VIAL IV ONE (05:15)
[2024-08-06 06:39] LABS: EOS # 0.1 10*3/uL (0.0-0.4); EOS % 0.8 % (1.0-4.0); HEMATOCRIT 33.3 % (42.0-52.0); MEAN CELL VOLUME 88.8 fl (80.0-94.0); MEAN CORPUSCULAR HGB 26.7 pg (27.0-31.0); MEAN PLATELET VOLUME 9.6 fl (9.6-12.3); MONO # 0.8 10*3/uL (0.1-1.0); MONO % 7.7 % (3.0-9.0); NEUT # 8.6 10*3/uL (2.3-7.9); NEUT % 87.6 % (47.0-73.0); PLATELET COUNT AUTOMATED 378 10*3/uL (130-400); RED BLOOD COUNT 3.75 10*6/uL (4.50-5.90); RED CELL DISTRI WIDTH 15.4 % (0-14.5); WHITE BLOOD COUNT 9.8 10*3/uL (4.8-10.8)
[2024-08-06 07:03] LABS: BUN 25 mg/dl (9-23); CHLORIDE 99 mmol/L (98-107); POTASSIUM 4.8 mmol/L (3.4-5.1)
[2024-08-06 07:31] LABS: ABG BASE EXCESS -1.6 mmol/L (-2.0-3.0); ABG O2 SATURATION 97.5 % (94.0-98.0); ARTERIAL BLOOD GAS PH 7.358 (7.350-7.450)
[2024-08-06 08:00] VITALS: BP 152/86
[2024-08-06] MEDS ORDERED: AZITHROMYCIN 250 ML IV SCH (10:00)
[2024-08-06] MEDS ORDERED: LORazepam 0.5 MG TAB PO PRN (10:10)
[2024-08-06 12:00] VITALS: BP 134/86
[2024-08-06] MEDS ORDERED: FUROSEMIDE 40 MG/4 ML VIAL IV ONE (15:50)
[2024-08-06 16:00] VITALS: BP 120/72
[2024-08-06 20:00] VITALS: BP 129/72
[2024-08-07] VITALS: BP 120/72; BP 137/36
[2024-08-07 07:07] LABS: EOS % 0.2 % (1.0-4.0); HEMATOCRIT 30.8 % (42.0-52.0); MEAN CELL VOLUME 87.5 fl (80.0-94.0); MEAN CORPUSCULAR HGB 26.1 pg (27.0-31.0); MEAN CORPUSCULAR HGB CONC 29.9 g/dl (33.0-37.0); MEAN PLATELET VOLUME 9.6 fl (9.6-12.3); MONO # 0.6 10*3/uL (0.1-1.0); MONO % 9.9 % (3.0-9.0); NEUT # 4.7 10*3/uL (2.3-7.9); NEUT % 77.2 % (47.0-73.0); PLATELET COUNT AUTOMATED 338 10*3/uL (130-400); RED BLOOD COUNT 3.52 10*6/uL (4.50-5.90); RED CELL DISTRI WIDTH 15.2 % (0-14.5); WHITE BLOOD COUNT 6.1 10*3/uL (4.8-10.8)
[2024-08-07 07:54] LABS: BUN 29 mg/dl (9-23); CHLORIDE 97 mmol/L (98-107); POTASSIUM 4.7 mmol/L (3.4-5.1)
[2024-08-07 08:00] VITALS: BP 153/94
[2024-08-07 12:00] VITALS: BP 152/81
[2024-08-07] MEDS ORDERED: FUROSEMIDE 40 MG/4 ML VIAL IV SCH (13:00)
[2024-08-07 16:00] VITALS: BP 155/85
[2024-08-07 20:00] VITALS: BP 129/80
[2024-08-08] VITALS (7 sets, daily range): BP systolic 109–154; BP diastolic 67–94
[2024-08-08 07:25] LABS: EOS # 0.1 10*3/uL (0.0-0.4); EOS % 1.6 % (1.0-4.0); HEMATOCRIT 33.7 % (42.0-52.0); MEAN CELL VOLUME 86.4 fl (80.0-94.0); MEAN CORPUSCULAR HGB 26.2 pg (27.0-31.0); MEAN CORPUSCULAR HGB CONC 30.3 g/dl (33.0-37.0); MEAN PLATELET VOLUME 9.7 fl (9.6-12.3); MONO # 0.8 10*3/uL (0.1-1.0); MONO % 8.4 % (3.0-9.0); NEUT # 6.7 10*3/uL (2.3-7.9); NEUT % 74.8 % (47.0-73.0); PLATELET COUNT AUTOMATED 429 10*3/uL (130-400); RED CELL DISTRI WIDTH 15.3 % (0-14.5); WHITE BLOOD COUNT 8.9 10*3/uL (4.8-10.8)
[2024-08-08 08:08] LABS: BUN 32 mg/dl (9-23); CHLORIDE 92 mmol/L (98-107); POTASSIUM 4.1 mmol/L (3.4-5.1)
[2024-08-08] MEDS ORDERED: Albuterol Sulfate 1.25 MG/3 ML VIAL NEB ONE (08:35)
[2024-08-08] MEDS ORDERED: Lidocaine Hydrochloride 4% 5 ML AMP NEB ONE (08:35)
[2024-08-08] MEDS ORDERED: Lactated Ringer's Solution 500 ML IV ONE (08:51)
[2024-08-08] MEDS ORDERED: Albuterol Sulfate 2.5 MG/0.5 ML VIAL NEB ONE (08:54)
[2024-08-08] MEDS ORDERED: Lidocaine Hydrochloride 4% 5 ML AMP ONE (08:54)
[2024-08-08] MEDS ORDERED: methylPREDNISolone sod succ 40 MG VIAL IV SCH (10:00)
[2024-08-08] MEDS ORDERED: Albuterol Sulf/Ipratropium 3 ML VIAL NEB ONE (11:00)
[2024-08-08] MEDS ORDERED: PROPOFOL 200 MG/20 ML VIAL IV ONE (12:44)
[2024-08-08] MEDS ORDERED: Lidocaine Hydrochloride 5 ML VIAL IV ONE (12:44)
[2024-08-08] MEDS ORDERED: RIVAROXABAN 20 MG TAB PO SCH (18:00)
[2024-08-08] MEDS ORDERED: Albuterol Sulf/Ipratropium 3 ML VIAL NEB SCH (23:05)
[2024-08-09] VITALS: BP 123/81
[2024-08-09 08:00] VITALS: BP 134/84
[2024-08-09 11:07] LABS: ACID FAST SPEC PROCESSING Concentration (.)
[2024-08-09 12:00] VITALS: BP 109/67
[2024-08-09 16:00] VITALS: BP 119/72
[2024-08-09 20:00] VITALS: BP 105/70
[2024-08-10] VITALS: BP 112/72
[2024-08-10 06:38] LABS: EOS # 0.2 10*3/uL (0.0-0.4); EOS % 2.2 % (1.0-4.0); HEMATOCRIT 36.7 % (42.0-52.0); MEAN CORPUSCULAR HGB 26.6 pg (27.0-31.0); MEAN CORPUSCULAR HGB CONC 30.2 g/dl (33.0-37.0); MEAN PLATELET VOLUME 9.4 fl (9.6-12.3); MONO # 0.8 10*3/uL (0.1-1.0); MONO % 12.4 % (3.0-9.0); NEUT # 4.7 10*3/uL (2.3-7.9); NEUT % 70.3 % (47.0-73.0); PLATELET COUNT AUTOMATED 461 10*3/uL (130-400); RED BLOOD COUNT 4.17 10*6/uL (4.50-5.90); RED CELL DISTRI WIDTH 14.6 % (0-14.5); WHITE BLOOD COUNT 6.7 10*3/uL (4.8-10.8)
[2024-08-10 07:03] LABS: BUN 33 mg/dl (9-23); CHLORIDE 89 mmol/L (98-107); POTASSIUM 4.5 mmol/L (3.4-5.1)
[2024-08-10 08:00] VITALS: BP 117/73
[2024-08-10] MEDS ORDERED: methylPREDNISolone sod succ 40 MG VIAL IV SCH (10:00)
[2024-08-10] MEDS ORDERED: FUROSEMIDE 40 MG TAB PO SCH (10:00)
[2024-08-10 12:00] VITALS: BP 119/77
[2024-08-10 16:00] VITALS: BP 115/74
[2024-08-10 20:00] VITALS: BP 116/71
[2024-08-11] VITALS: BP 113/70
[2024-08-11 04:00] VITALS: BP 117/71
[2024-08-11 06:54] LABS: BASO % 0.2 % (0.0-1.0); BUN 38 mg/dl (9-23); CHLORIDE 90 mmol/L (98-107); EOS # 0.3 10*3/uL (0.0-0.4); EOS % 2.9 % (1.0-4.0); HEMATOCRIT 39.1 % (42.0-52.0); MEAN CELL VOLUME 88.7 fl (80.0-94.0); MEAN CORPUSCULAR HGB 26.3 pg (27.0-31.0); MEAN CORPUSCULAR HGB CONC 29.7 g/dl (33.0-37.0); MEAN PLATELET VOLUME 9.3 fl (9.6-12.3); MONO # 1.3 10*3/uL (0.1-1.0); MONO % 14.5 % (3.0-9.0); NEUT # 6.1 10*3/uL (2.3-7.9); NEUT % 66.3 % (47.0-73.0); PLATELET COUNT AUTOMATED 514 10*3/uL (130-400); POTASSIUM 4.7 mmol/L (3.4-5.1); RED BLOOD COUNT 4.41 10*6/uL (4.50-5.90); RED CELL DISTRI WIDTH 14.7 % (0-14.5); WHITE BLOOD COUNT 9.3 10*3/uL (4.8-10.8)
[2024-08-11 08:00] VITALS: BP 137/97
[2024-08-11 12:00] VITALS: BP 112/80
[2024-08-11] MEDS ORDERED: MUCINEX DM 30/61 TAB PO (13:19)
[2024-08-11] MEDS ORDERED: BENZONATATE100 M1 PO (13:19)
[2024-08-11] MEDS ORDERED: ZITHROMAX500 MG PO (13:23)
== END 2024-08-11 15:50 | disposition home or self-care (01) | DRG 871 ==
LOC: ED 02:45 → 5E 04:39 → EDHOLD 04:39 → 5E 05:13
PROVIDERS: Emergency Medicine; Internal Medicine Critical Care Medicine; Student in an Organized Health Care Education/Training Program; ADMIT Family Medicine; ATTEND Family Medicine
PROC: 5A09357 Assistance with Respiratory Ventilation, Less than 24 Consecutive Hours, Continuous Positive Airway Pressure (ICD-10-PCS; principal; 2024-08-06)
PROC: 5A0935A Assistance with Respiratory Ventilation, Less than 24 Consecutive Hours, High Flow/Velocity Cannula (ICD-10-PCS; 2024-08-06)
PROC: 5A0935A Assistance with Respiratory Ventilation, Less than 24 Consecutive Hours, High Flow/Velocity Cannula (ICD-10-PCS; 2024-08-06)
PROC: 5A09357 Assistance with Respiratory Ventilation, Less than 24 Consecutive Hours, Continuous Positive Airway Pressure (ICD-10-PCS; 2024-08-07)
PROC: 5A09357 Assistance with Respiratory Ventilation, Less than 24 Consecutive Hours, Continuous Positive Airway Pressure (ICD-10-PCS; 2024-08-08)
PROC: 0BC18ZZ Extirpation of Matter from Trachea, Via Natural or Artificial Opening Endoscopic (ICD-10-PCS; 2024-08-08)
PROC: 0BC98ZZ Extirpation of Matter from Lingula Bronchus, Via Natural or Artificial Opening Endoscopic (ICD-10-PCS; 2024-08-08)
PROC: 0BC48ZZ Extirpation of Matter from Right Upper Lobe Bronchus, Via Natural or Artificial Opening Endoscopic (ICD-10-PCS; 2024-08-08)
PROC: 0BC88ZZ Extirpation of Matter from Left Upper Lobe Bronchus, Via Natural or Artificial Opening Endoscopic (ICD-10-PCS; 2024-08-08)
PROC: 0BC58ZZ Extirpation of Matter from Right Middle Lobe Bronchus, Via Natural or Artificial Opening Endoscopic (ICD-10-PCS; 2024-08-08)
PROC: 0BC38ZZ Extirpation of Matter from Right Main Bronchus, Via Natural or Artificial Opening Endoscopic (ICD-10-PCS; 2024-08-08)
PROC: 0BC78ZZ Extirpation of Matter from Left Main Bronchus, Via Natural or Artificial Opening Endoscopic (ICD-10-PCS; 2024-08-08)
PROC: 0BC68ZZ Extirpation of Matter from Right Lower Lobe Bronchus, Via Natural or Artificial Opening Endoscopic (ICD-10-PCS; 2024-08-08)
PROC: 0BCB8ZZ Extirpation of Matter from Left Lower Lobe Bronchus, Via Natural or Artificial Opening Endoscopic (ICD-10-PCS; 2024-08-08)
PROC: 5A09357 Assistance with Respiratory Ventilation, Less than 24 Consecutive Hours, Continuous Positive Airway Pressure (ICD-10-PCS; 2024-08-09)
PROC: 5A09357 Assistance with Respiratory Ventilation, Less than 24 Consecutive Hours, Continuous Positive Airway Pressure (ICD-10-PCS; 2024-08-10)
DX: A41.9 Sepsis, unspecified organism (principal); J15.69 Pneumonia due to other Gram-negative bacteria; J96.21 Acute and chronic respiratory failure with hypoxia; J44.1 Chronic obstructive pulmonary disease with (acute) exacerbation; E44.0 Moderate protein-calorie malnutrition; E87.1 Hypo-osmolality and hyponatremia; J44.0 Chronic obstructive pulmonary disease with (acute) lower respiratory infection; J47.1 Bronchiectasis with (acute) exacerbation; I48.21 Permanent atrial fibrillation; I13.0 Hypertensive heart and chronic kidney disease with heart failure and stage 1 through stage 4 chronic kidney disease, or unspecified chronic kidney disease; R65.20 Severe sepsis without septic shock; N18.32 Chronic kidney disease, stage 3b; D64.9 Anemia, unspecified; Z66 Do not resuscitate; F41.1 Generalized anxiety disorder; F32.9 Major depressive disorder, single episode, unspecified; J84.10 Pulmonary fibrosis, unspecified; Z20.822 Contact with and (suspected) exposure to COVID-19; E83.42 Hypomagnesemia; I50.9 Heart failure, unspecified; Z96.653 Presence of artificial knee joint, bilateral; Z88.8 Allergy status to other drugs, medicaments and biological substances; Z91.09 Other allergy status, other than to drugs and biological substances; Z87.891 Personal history of nicotine dependence; Z79.899 Other long term (current) drug therapy; Z79.01 Long term (current) use of anticoagulants; Z79.2 Long term (current) use of antibiotics; Z90.49 Acquired absence of other specified parts of digestive tract; Z78.9 Other specified health status; Z82.5 Family history of asthma and other chronic lower respiratory diseases; Z82.49 Family history of ischemic heart disease and other diseases of the circulatory system; Z81.8 Family history of other mental and behavioral disorders; Z68.21 Body mass index [BMI] 21.0-21.9, adult

== ENCOUNTER 2024-10-05 11:57 | Emergency (ER) | payer MEDICARE ==
[~2024-10-05] VITALS: Ht 198.1 cm; Wt 84.8 kg
[~2024-10-05 11:57] MED LIST changes: +BENZONATATE100 M1 PO; +MUCINEX DM 30/61 TAB PO; +ZITHROMAX500 MG PO
[2024-10-05] MEDS ORDERED: METOPROLOL SUC100 M1 PO (12:12)
[2024-10-05 12:43] LABS: BASO # 0.0 10*3/uL (0.0-0.1); BASO % 0.3 % (0.0-1.0); EOS # 0.3 10*3/uL (0.0-0.4); EOS % 4.7 % (1.0-4.0); MEAN CELL VOLUME 91.3 fl (80.0-94.0); MEAN CORPUSCULAR HGB 27.0 pg (27.0-31.0); MEAN PLATELET VOLUME 9.4 fl (9.6-12.3); MONO # 0.6 10*3/uL (0.1-1.0); MONO % 10.6 % (3.0-9.0); NEUT # 4.0 10*3/uL (2.3-7.9); NEUT % 69.9 % (47.0-73.0); NUCLEATED RED BLOOD CELL 0.0 % (0.0-0.0); NUCLEATED RED BLOOD CELL 0.0 10*3/uL (0.0-0.0); PLATELET COUNT AUTOMATED 267 10*3/uL (130-400); RED CELL DISTRI WIDTH 16.5 % (0-14.5)
[2024-10-05 13:03] LABS: BUN 20 mg/dl (9-23); CPK 19 U/L (34-171)
[2024-10-05] MEDS ORDERED: Albuterol Sulf/Ipratropium 3 ML VIAL NEB ONE (14:10)
[2024-10-05 14:24] VITALS: BP 118/70
[2024-10-05] MEDS ORDERED: PREDNISONE20 M1 PO (15:40)
== END 2024-10-05 16:08 | disposition home or self-care (01) ==
LOC: ED 11:57
PROVIDERS: Emergency Medicine
DX: J44.1 Chronic obstructive pulmonary disease with (acute) exacerbation (principal); I10 Essential (primary) hypertension; F41.9 Anxiety disorder, unspecified; K21.9 Gastro-esophageal reflux disease without esophagitis; F32.A Depression, unspecified; I48.91 Unspecified atrial fibrillation; E11.9 Type 2 diabetes mellitus without complications; Z98.890 Other specified postprocedural states; Z90.49 Acquired absence of other specified parts of digestive tract; Z96.653 Presence of artificial knee joint, bilateral